=== PATIENT | female | born 1960 | race Caucasian/White ===

== ENCOUNTER 2017-01-13 17:28 | Inpatient (IN) | payer MEDICARE ==
[~2017-01-13] VITALS: Ht 154.9 cm; Wt 50.5 kg
[2017-01-13] MEDS ORDERED: LISI20TA3 PO (17:53)
[2017-01-13] MEDS ORDERED: THIAMINE HCL 200 MG/2 ML VIAL (J3411) IV ONE (18:15)
[2017-01-13] MEDS: NS 1,000 ML IV SCH (18:37)
[2017-01-13 18:40] LABS: BASO % 0.1 % (0.0-1.0); EOS % 0.3 % (0.0-3.0); LARGE UNSTAINED CELL # 0.1 K/mm3 (0.0-0.4); LARGE UNSTAINED CELL % 1.5 % (0.0-4.0); LYMPH # 1.8 K/mm3 (1.5-4.5); LYMPH % 25.6 % (24.0-44.0); MEAN CORPUSCULAR HEMOGLOBIN 32.6 pg (27.0-33.0); MEAN CORPUSCULAR VOLUME 101.9 fl (80.0-96.0); MONO # 0.2 K/mm3 (0.0-0.8); MONO % 3.3 % (0.0-5.0); NEUTROPHILS # 4.8 K/mm3 (1.8-7.7); NEUTROPHILS % 69.1 % (36.0-66.0); PLATELET COUNT, AUTOMATED 188 k/mm3 (150-450); RED CELL DISTRIBUTION WIDTH 20.4 % (11.5-14.5); WHITE BLOOD COUNT 6.9 K/mm3 (4.0-10.0)
[2017-01-13] MEDS ORDERED: NS 500 ML IV ONE (18:45)
--- NOTE | 2017-01-13 18:50 | REPUSA ---
CLINICAL HISTORY: Fall, weakness. TECHNIQUE: Multiple axial CT images were obtained through the brain without IV contrast material. COMMENTS: There is normal configuration of sella turcica. There are no intra or extra-axial collections. There is no mass effect or midline shift. There is no evidence of hematoma formation. No hydrocephalus is p resent. The ventricles are symmetrical. No abnormal calcifications are present. There is diffuse age-appropriate cerebellar and cerebral atrophy with proportionally dilated ventricl es and cortical sulci. There are bilateral periventricular and subcortical white matter hypolucencies compatible with mild c hronic microvascular disease. Otherwise, no significant focal abnormalities are seen either in the posterior fossa or supratentoria l compartment. IMPRESSION: 1. Age-appropriate cerebellar and cerebral atrophy. 2. Mild chronic microvascular disease. 3. No evidence of acute intracranial pathology. Thank you for your kind referral of this patient.
--- NOTE | 2017-01-13 18:50 | REPUSA ---
CLINICAL HISTORY: Neck pain. TECHNIQUE: Multiple axial images were obtained through the cervical spine. Images were also reconstru cted in coronal and sagittal planes. The study was performed without IV contrast. COMMENTS: There is no fracture. Grade 1 anterior spondylolisthesis of C3 on C4. The paraspinal soft tissues are unremarkable. There are no lytic or blastic lesions. Straightening of cervical lordosis is seen, suggesting muscular spasm. There is evidence of multileve l disk disease, demonstrated by osteophytosis and endplate sclerosis. IMPRESSION: 1. No fracture. Grade 1 anterior spondylolisthesis of C3 on C4. 2. Straightening of cervical lordosis is seen, suggesting muscular spasm. 3. Multilevel spondylosis. Thank you for your kind referral of this patient.
[2017-01-13 19:04] LABS: INR 1.01
[2017-01-13 19:06] LABS: BLOOD UREA NITROGEN 6 MG/DL (7-18); CALCIUM LEVEL 7.4 MG/DL (8.5-10.1); CREATININE FOR GFR 0.98 MG/DL (0.55-1.02); GLOMERULAR FILTRATION RATE > 60.0 (>51); GLUCOSE, FASTING 103 MG/DL (70-105)
[2017-01-13 19:13] LABS: ALBUMIN 2.3 GM/DL (3.2-5.2); ALBUMIN/GLOBULIN RATIO 0.74 (1.00-1.93); BILIRUBIN,DIRECT 0.8 MG/DL (0.0-0.2); BILIRUBIN,TOTAL 1.5 MG/DL (0.2-1.0); FREE T4 1.16 NG/DL (0.76-1.46); MAGNESIUM LEVEL 1.1 MG/DL (1.8-2.4); PHOSPHORUS LEVEL 0.7 MG/DL (2.5-4.9); TOTAL PROTEIN 5.4 GM/DL (6.4-8.2)
[2017-01-13 19:20] LABS: ANION GAP 12 MEQ/L (8-16)
[2017-01-13 19:25] LABS: CHLORIDE LEVEL 78 MEQ/L (98-107); SODIUM LEVEL 127 MEQ/L (136-145)
[2017-01-13 19:30] LABS: CARBON DIOXIDE LEVEL 37 MEQ/L (21-32); POTASSIUM SERUM 1.7 MEQ/L (3.5-5.1)
[2017-01-13] MEDS ORDERED: NEUTRA-PHOS 1.25 GM PACKET PO ONE (19:30)
[2017-01-13] MEDS ORDERED: MAG SULF 1GM/100ML (MAG RUN) 1 GM in APPROPRIATE DILUENT 1 EA IV ONE (19:30)
[2017-01-13] MEDS ORDERED: KCL 10MEQ IN 100ML SWI (KRUN) 10 MEQ in APPROPRIATE DILUENT 1 EA IV ONE ×2 (20:00)
[2017-01-13] MEDS ORDERED: POTASSIUM CHLORIDE 10 MEQ SR TABLET PO ONE (20:00)
[2017-01-13] MEDS ORDERED: FOLIC ACID 1 MG TAB PO ONE (20:00)
[2017-01-13 21:53] LABS: OSMOLALITY SERUM 257 MOSM/KG (275-295)
[2017-01-13] MEDS ORDERED: ACETAMINOPHEN TAB 650MG DOSE (2X325MG) PO PRN (23:45)
[2017-01-14] VITALS (7 sets, daily range): BP systolic 104–130; BP diastolic 56–80
[2017-01-14] MEDS: NS 1,000 ML IV SCH (02:55)
[2017-01-14 04:07] LABS: BASO % 0.3 % (0.0-1.0); EOS % 0.6 % (0.0-3.0); LARGE UNSTAINED CELL # 0.1 K/mm3 (0.0-0.4); LARGE UNSTAINED CELL % 1.4 % (0.0-4.0); LYMPH # 1.8 K/mm3 (1.5-4.5); LYMPH % 30.3 % (24.0-44.0); MEAN CORPUSCULAR HEMOGLOBIN 31.7 pg (27.0-33.0); MEAN CORPUSCULAR HGB CONC 34.4 g/dl (32.0-36.5); MONO # 0.2 K/mm3 (0.0-0.8); MONO % 4.2 % (0.0-5.0); NEUTROPHILS # 3.7 K/mm3 (1.8-7.7); NEUTROPHILS % 63.3 % (36.0-66.0); PLATELET COUNT, AUTOMATED 136 k/mm3 (150-450); RED CELL DISTRIBUTION WIDTH 20.3 % (11.5-14.5); WHITE BLOOD COUNT 5.8 K/mm3 (4.0-10.0)
[2017-01-14 04:10] LABS: ANION GAP 4 MEQ/L (8-16); BLOOD UREA NITROGEN 7 MG/DL (7-18); CALCIUM LEVEL 7.2 MG/DL (8.5-10.1); CARBON DIOXIDE LEVEL 41 MEQ/L (21-32); CHLORIDE LEVEL 85 MEQ/L (98-107); CREATININE FOR GFR 0.65 MG/DL (0.55-1.02); GLOMERULAR FILTRATION RATE > 60.0 (>51); GLUCOSE, FASTING 98 MG/DL (70-105); MAGNESIUM LEVEL 1.8 MG/DL (1.8-2.4); PHOSPHORUS LEVEL 0.8 MG/DL (2.5-4.9); POTASSIUM SERUM 1.8 MEQ/L (3.5-5.1); SODIUM LEVEL 130 MEQ/L (136-145)
[2017-01-14 04:21] LABS: MEAN CORPUSCULAR VOLUME 92.1 fl (80.0-96.0)
[2017-01-14 04:52] LABS: ALBUMIN 2.1 GM/DL (3.2-5.2); ALBUMIN/GLOBULIN RATIO 0.68 (1.00-1.93); ALKALINE PHOSPHATASE 158 U/L (45-117); ALT/SGPT 25 U/L (12-78); AST/SGOT 90 U/L (15-37); BILIRUBIN,TOTAL 1.1 MG/DL (0.2-1.0); TOTAL PROTEIN 5.2 GM/DL (6.4-8.2)
[2017-01-14] MEDS ORDERED: KCL 20MEQ in NS 1000ML 1,000 ML IV SCH (05:15)
[2017-01-14] MEDS ORDERED: POTASSIUM CHLORIDE 10% LIQ 20 MEQ/15 ML UDC PO ONE ×2 (06:00→09:00)
[2017-01-14] MEDS ORDERED: KCL 10MEQ IN 100ML SWI (KRUN) 10 MEQ in APPROPRIATE DILUENT 1 EA IV ONE ×4 (06:00→09:00)
[2017-01-14 07:41] LABS: ANION GAP 5 MEQ/L (8-16); BLOOD UREA NITROGEN 7 MG/DL (7-18); CALCIUM LEVEL 7.2 MG/DL (8.5-10.1); CARBON DIOXIDE LEVEL 38 MEQ/L (21-32); CHLORIDE LEVEL 86 MEQ/L (98-107); CREATININE FOR GFR 0.79 MG/DL (0.55-1.02); GLOMERULAR FILTRATION RATE > 60.0 (>51); GLUCOSE, FASTING 92 MG/DL (70-105); SODIUM LEVEL 129 MEQ/L (136-145)
[2017-01-14 07:47] LABS: POTASSIUM SERUM 2.7 MEQ/L (3.5-5.1)
[2017-01-14] MEDS: KCL 20MEQ in NS 1000ML 1,000 ML IV SCH (07:52)
--- NOTE | 2017-01-14 08:07 | IPNPDOC ---
Subjective Date Seen The patient was seen on 01/14/17. Subjective Chief Complaint/HPI The patient is a 56-year-old female admitted with a reason for visit of Hypokalemia. General: Reports: Fatigue, Malaise, Denies: ROS Unobtainable, Chills, Night Sweats, Normal Appetite, Other Symptoms Constitutional: Reports: Malaise, Weakness, Denies: Chills, Fever, Night Sweats, Fatigue, Weight Loss, Lethargy, Other Eyes: Denies: Pain, Vision change, Conjunctivae inflammation, Eyelid inflammation, Redness, Other ENT: Denies: Head Aches, Ear Pain, Dysphagia, Sinus Congestion, Post Nasal Drip , Sore Throat, Epistaxis, Other Symptoms Skin: Denies: Rash, Lesions, Jaundice, Bruising, Itching, Dry, Breakdown, Nail Changes, Other Pulmonary: Denies: Dyspnea, Cough, Pleuritic Chest Pain, Other Symptoms Cardiovascular: Denies: Chest Pain, Palpitations, Orthopnea, Paroxysmal Noc. Dyspnea, Edema, Lt Headedness, Other Symptoms Gastrointestinal: Denies: Nausea, Vomiting, Abdominal Pain, Diarrhea, Constipation, Melena, Hematochezia, Other Symptoms Neurological: Reports: Weakness, Other Symptoms (dizziness) Objective Physical Examination General Exam: Positive: Alert, Cooperative, No Acute Distress, Other (frail) Eye Exam: Positive: PERRLA, Conjunctiva & lids normal, EOMI, Negative: Sclera icteric ENT Exam: Positive: Atraumatic Chest Exam: Positive: Clear to auscultation, Normal air movement Heart Exam: Positive: Rate Normal Telemetry: Positive: No significant arrhythmia Abdomen Exam: Positive: Normal bowel sounds, Soft, Negative: Tenderness Extremity Exam: Negative: Edema Psych Exam: Positive: Oriented x 3 Assessment /Plan Problems (1) HTN (hypertension) Status: Chronic Discussed With: Patient Problem Specific Plan: Monitor Clinically Problem Text: lisinopril as per home medications (2) Hypokalemia Status: Acute Response to Treatment: Progressing Discussed With: Patient Problem Specific Plan: Consult Specialist, Repeat Labs (3) Hypomagnesemia Status: Acute Discussed With: Patient Problem Specific Plan: Consult Specialist, Repeat Labs (4) Anemia Status: Acute Discussed With: Patient Problem Specific Plan: Monitor Clinically, Repeat Labs Problem Text: anemia workup pending - b12, folate, ldh, retic count, stool guaic (5) Nicotine abuse Status: Chronic Discussed With: Patient Problem Text: counselling provided at bedside. continue with NRT. (6) Alcohol abuse Status: Chronic Discussed With: Patient Problem Specific Plan: Monitor Clinically Problem Text: She states her last drink was 5 days ago, and has 3 drinks per day. Plan/VTE VTE Prophylaxis Ordered?: Yes (mechanical) Plan IVF: Continue Diet: Continue Current Therapy: PT, OT Medications: Replete Electrolytes IV, Replete Electrolytes PO Diagnostics: Repeat Labs in AM Anticipated Discharge: Home States has been not left her home for the last 4 months for fear of falling secondary to her weakness and dizziness. Anemia workup pending, replete electrolytes. Nephrology consultation. VS, I&O, 24H, Fishbone Vital Signs/I&O Vital Signs Date Time Temp Pulse Resp B/P (MAP) Pulse Ox O2 Delivery O2 Flow Rate FiO2 01/14/17 04:00 98.3 74 18 108/80 (89) 97 Room Air I&O- Last 24 Hours up to 6 AM 01/14/17 06:00 Intake Total 820 ml Output Total 200 ml Balance 620 ml Laboratory Data 24H LABS Laboratory Tests 2 01/13/17 18:16: White Blood Count 6.9, Red Blood Count 2.13L, Hemoglobin 7.0L, Hematocrit 21.7L , Mean Corpuscular Volume 101.9H, Mean Corpuscular Hemoglobin 32.6, Mean Corpuscular Hemoglobin Concent 32.0, Red Cell Distribution Width 20.4H, Platelet Count 188, Neutrophils (%) (Auto) 69.1H, Lymphocytes (%) (Auto) 25.6, Monocytes (%) (Auto) 3.3, Eosinophils (%) (Auto) 0.3, Basophils (%) (Auto) 0.1, Neutrophils # (Auto) 4.8, Lymphocytes # (Auto) 1.8, Monocytes # (Auto) 0.2, Eosinophils # (Auto) 0.0, Basophils # (Auto) 0.0, Large Unclassified Cells % 1.5 , Large Unclassified Cells # 0.1, Prothrombin Time 13.4, Prothromb Time International Ratio 1.01, Activated Partial Thromboplast Time 23.4L, Anion Gap 12, Glomerular Filtration Rate > 60.0, Blood Urea Nitrogen 6L, Creatinine 0.98, Sodium Level 127L, Potassium Level 1.7*L, Chloride Level 78L, Carbon Dioxide Level 37H, Calcium Level 7.4L, Total Creatine Kinase 177, Phosphorus Level 0.7L , Magnesium Level 1.1L, Aspartate Amino Transf (AST/SGOT) 100H, Alanine Aminotransferase (ALT/SGPT) 26, Alkaline Phosphatase 166H, Total Bilirubin 1.5H , Direct Bilirubin 0.8H, Ammonia 46H, Creatine Kinase MB 1.0, Creatine Kinase MB Relative Index 0.56, Troponin I < 0.02, Total Protein 5.4L, Albumin 2.3L, Albumin/Globulin Ratio 0.74L, Thyroid Stimulating Hormone (TSH) 1.320, Free Thyroxine 1.16, Ethyl Alcohol Level 0.004 01/13/17 21:22: Osmolality 257L 01/14/17 03:17: White Blood Count 5.8, Red Blood Count 3.13L, Hemoglobin 9.9#L, Hematocrit 28.8L , Mean Corpuscular Volume 92.1#, Mean Corpuscular Hemoglobin 31.7, Mean Corpuscular Hemoglobin Concent 34.4, Red Cell Distribution Width 20.3H, Platelet Count 136L, Neutrophils (%) (Auto) 63.3, Lymphocytes (%) (Auto) 30.3, Monocytes (%) (Auto) 4.2, Eosinophils (%) (Auto) 0.6, Basophils (%) (Auto) 0.3, Neutrophils # (Auto) 3.7, Lymphocytes # (Auto) 1.8, Monocytes # (Auto) 0.2, Eosinophils # (Auto) 0.0, Basophils # (Auto) 0.0, Large Unclassified Cells % 1.4 , Large Unclassified Cells # 0.1, Anion Gap 4L, Glomerular Filtration Rate > 60.0, Blood Urea Nitrogen 7, Creatinine 0.65, Sodium Level 130L, Potassium Level 1.8*L, Chloride Level 85L, Carbon Dioxide Level 41H, Calcium Level 7.2L, Total Creatine Kinase 171, Phosphorus Level 0.8L, Magnesium Level 1.8, Aspartate Amino Transf (AST/SGOT) 90H, Alanine Aminotransferase (ALT/SGPT) 25, Alkaline Phosphatase 158H, Total Bilirubin 1.1H, Creatine Kinase MB 1.2, Creatine Kinase MB Relative Index 0.70, Troponin I 0.02, Total Protein 5.2L, Albumin 2.1L, Albumin/Globulin Ratio 0.68L, Thyroid Stimulating Hormone (TSH) 1.450, Thyroxine (T4) 6.8 01/14/17 07:12: Anion Gap 5L, Glomerular Filtration Rate > 60.0, Blood Urea Nitrogen 7, Creatinine 0.79, Sodium Level 129L, Potassium Level 2.7#*L, Chloride Level 86L, Carbon Dioxide Level 38H, Calcium Level 7.2L CBC/BMP Laboratory Tests 01/13/17 18:16 Red Blood Count 2.13 L, Mean Corpuscular Volume 101.9 H, Mean Corpuscular Hemoglobin 32.6, Mean Corpuscular Hemoglobin Concent 32.0, Red Cell Distribution Width 20.4 H, Neutrophils (%) (Auto) 69.1 H, Lymphocytes (%) (Auto ) 25.6, Monocytes (%) (Auto) 3.3, Eosinophils (%) (Auto) 0.3, Basophils (%) ( Auto) 0.1, Neutrophils # (Auto) 4.8, Lymphocytes # (Auto) 1.8, Monocytes # (Auto ) 0.2, Eosinophils # (Auto) 0.0, Basophils # (Auto) 0.0, Calcium Level 7.4 L, Total Creatine Kinase 177 01/14/17 03:17 Red Blood Count 3.13 L, Mean Corpuscular Volume 92.1 #, Mean Corpuscular Hemoglobin 31.7, Mean Corpuscular Hemoglobin Concent 34.4, Red Cell Distribution Width 20.3 H, Neutrophils (%) (Auto) 63.3, Lymphocytes (%) (Auto) 30.3, Monocytes (%) (Auto) 4.2, Eosinophils (%) (Auto) 0.6, Basophils (%) (Auto ) 0.3, Neutrophils # (Auto) 3.7, Lymphocytes # (Auto) 1.8, Monocytes # (Auto) 0.2, Eosinophils # (Auto) 0.0, Basophils # (Auto) 0.0, Calcium Level 7.2 L, Total Creatine Kinase 171, Phosphorus Level 0.8 L, Aspartate Amino Transf (AST/ SGOT) 90 H, Alanine Aminotransferase (ALT/SGPT) 25, Alkaline Phosphatase 158 H, Total Bilirubin 1.1 H, Total Protein 5.2 L, Albumin 2.1 L 01/14/17 07:12 Calcium Level 7.2 L ANUJ ARREOLA MD Jan 14, 2017 08:07
[2017-01-14] MEDS: PANTOPRAZOLE 40MG TAB (PROTONIX) PO SCH (08:35)
[2017-01-14] MEDS: THIAMINE 100 MG TAB PO SCH (08:35)
[2017-01-14] MEDS: NICOTINE 21MG/24HR 1 EA TRANSDERMAL TD SCH (08:35)
[2017-01-14] MEDS: FOLIC ACID 1 MG TAB PO SCH (08:35)
[2017-01-14 08:41] LABS: RETIC HEMOGLOBIN CONTENT CHr 31.5 PG (24-36); RETICULOCYTE ABSOLUTE ADVIA212 20 x10(9)/L (17-77)
--- NOTE | 2017-01-14 09:36 | REP ---
Chest x-ray: Two views. History: Weakness. History of a fall. Comparison study: November 13, 2005. Findings: The lungs are well inflated and free of infiltrate. Heart is not enlarged. Pulmonary vasculature is not increased. There are degenerative changes in the thoracic spine. Pulmonary vasculature is not increased. Impression: No active disease. Signed by Moose Lowry MD 01/14/2017 11:31 A
[2017-01-14 09:42] LABS: FERRITIN 755 NG/ML (8-252)
[2017-01-14 10:01] LABS: PHOSPHORUS LEVEL 0.7 MG/DL (2.5-4.9)
[2017-01-14 16:05] LABS: THYROXINE (T4) 6.8 UG/DL (4.5-12.0)
[2017-01-14 16:28] LABS: ANION GAP 3 MEQ/L (8-16); BLOOD UREA NITROGEN 7 MG/DL (7-18); CALCIUM LEVEL 7.2 MG/DL (8.5-10.1); CARBON DIOXIDE LEVEL 37 MEQ/L (21-32); CHLORIDE LEVEL 90 MEQ/L (98-107); CREATININE FOR GFR 0.69 MG/DL (0.55-1.02); GLOMERULAR FILTRATION RATE > 60.0 (>51); GLUCOSE, FASTING 83 MG/DL (70-105); MAGNESIUM LEVEL 1.7 MG/DL (1.8-2.4); PERCENT SATURATION 98.4 % (13.2-37.4); PHOSPHORUS LEVEL 0.5 MG/DL (2.5-4.9); SODIUM LEVEL 130 MEQ/L (136-145)
[2017-01-14 16:30] LABS: POTASSIUM SERUM 2.9 MEQ/L (3.5-5.1)
[2017-01-14 16:39] LABS: T UPTAKE 38 % (30-39)
[2017-01-14] MEDS ORDERED: MAG SULF 1GM/100ML (MAG RUN) 1 GM in APPROPRIATE DILUENT 1 EA IV ONE (17:00)
[2017-01-14] MEDS ORDERED: POTASSIUM CHLORIDE 10 MEQ SR TABLET PO ONE (17:00)
[2017-01-14 22:57] LABS: ANION GAP 6 MEQ/L (8-16); BLOOD UREA NITROGEN 8 MG/DL (7-18); CALCIUM LEVEL 7.3 MG/DL (8.5-10.1); CARBON DIOXIDE LEVEL 34 MEQ/L (21-32); CHLORIDE LEVEL 92 MEQ/L (98-107); CREATININE FOR GFR 0.86 MG/DL (0.55-1.02); GLOMERULAR FILTRATION RATE > 60.0 (>51); GLUCOSE, FASTING 96 MG/DL (70-105); MAGNESIUM LEVEL 1.9 MG/DL (1.8-2.4); PHOSPHORUS LEVEL 0.3 MG/DL (2.5-4.9); SODIUM LEVEL 132 MEQ/L (136-145)
[2017-01-14 23:00] LABS: POTASSIUM SERUM 2.7 MEQ/L (3.5-5.1)
[2017-01-15] MEDS ORDERED: POTASSIUM CHLORIDE 10% LIQ 20 MEQ/15 ML UDC PO ONE (01:00)
[2017-01-15] MEDS: KCL 20MEQ in NS 1000ML 1,000 ML IV SCH (01:18)
[2017-01-15 04:09] VITALS: BP 135/70
--- NOTE | 2017-01-15 05:08 | HPE ---
DATE OF ADMISSION: 01/13/2017 CHIEF COMPLAINT: General weakness. HISTORY OF PRESENT ILLNESS: This is a 56-year-old female who came to the emergency room with complaint of feeling weak all over. She had no complaints of pain. Stated that she had no energy, had no appetite. Continued to feel worse. Came to the emergency room. Upon arrival, her blood pressure was 127/62, pulse was 101, respirations 18, temperature was 99.7, oxygen saturation was 98% on room air. Laboratory studies were done. WBC was 6.9, hemoglobin was 7, hematocrit was 21.7, MCV was 101.9, platelets were 188. Sodium was 127, her potassium was 1.7, chloride 78, CO2 37, BUN was 6, creatinine was 0.91. Phosphorus was low at 0.7. Magnesium was 1.1. Troponin was less than 0.02. EKG was sinus rhythm. She had a CT of the head that showed age-appropriate cerebellar and cerebral atrophy, mild chronic microvascular disease, no evidence of acute intracranial pathology. Chest x-ray showed no active disease. C-spine showed no fracture, grade 1 anterior spondylolisthesis of C3 and C4, straightening of cervical lordosis suggesting muscular spasm and multilevel spondylosis. She was given magnesium sulfate intravenously (IV), potassium replacement and sodium chloride IV was started. She was given two units of packed cells. Assessment was done and patient will be admitted to the progressive care unit (PCU) for anemia and hypokalemia. PRIMARY CARE PROVIDER: Dr. Adan. SOCIAL HISTORY: She lives with a significant other. She drinks alcohol nightly, at least 4-5 drinks a night. She smokes one pack of cigarettes per day. Recreational drug use none. PAST MEDICAL HISTORY: 1. Arthritis. 2. History of alcohol abuse. PAST SURGICAL HISTORY: Total right hip replacement. FAMILY HISTORY: Noncontributory. HOME MEDICATIONS: None. REVIEW OF SYSTEMS: Other than generalized weakness, were negative. She denied any hematochezia, melena, rectal bleeding or hematemesis. PHYSICAL EXAMINATION: 56-year-old cooperative female. Blood pressure 127/62, pulse 100, respirations 18, temperature 99.7. The patient is alert and oriented times three. Pupils equal and reactive to light. Extraocular muscles (EOMs) are intact. Cornea and sclerae clear. Conjunctivae were normal. No facial asymmetry. Pharynx, tongue and gums pink and moist. Tongue is midline. Neck is supple without lymphadenopathy. No thyromegaly. No goiter. Chest clear to auscultation without wheeze or retraction. Heart is regular. Abdomen is soft, nontender. No masses, pulsations or bruits. No organomegaly. Bowel sounds are positive. /rectal: Not done. Extremities show equal strength, full range of motion. No cyanosis, clubbing or edema. IMPRESSION AND PLAN: The patient will be admitted inpatient status for anemia, hypokalemia. PLAN: 1. Hypokalemia. Continue potassium replacement. Monitor basic metabolic panel (BMP). 2. Hypomagnesemia. Continue replacement. Monitor BMP. 3. Acute anemia. Blood transfusions as ordered. Continue to followup labs. 4. Nicotine abuse. Counseling provided. 5. Alcohol abuse. Will give thiamine and folic acid. Continue gentle hydration for the low sodium.
[2017-01-15 05:51] LABS: BASO % 0.3 % (0.0-1.0); EOS # 0.1 K/mm3 (0.0-0.50); LARGE UNSTAINED CELL # 0.1 K/mm3 (0.0-0.4); LARGE UNSTAINED CELL % 2.1 % (0.0-4.0); LYMPH # 2.7 K/mm3 (1.5-4.5); LYMPH % 38.4 % (24.0-44.0); MEAN CORPUSCULAR HEMOGLOBIN 31.5 pg (27.0-33.0); MEAN CORPUSCULAR HGB CONC 33.5 g/dl (32.0-36.5); MONO # 0.3 K/mm3 (0.0-0.8); MONO % 4.3 % (0.0-5.0); NEUTROPHILS # 3.6 K/mm3 (1.8-7.7); PLATELET COUNT, AUTOMATED 144 k/mm3 (150-450); RED CELL DISTRIBUTION WIDTH 20.3 % (11.5-14.5); WHITE BLOOD COUNT 6.7 K/mm3 (4.0-10.0)
[2017-01-15 05:58] LABS: ANION GAP 5 MEQ/L (8-16); BLOOD UREA NITROGEN 7 MG/DL (7-18); CALCIUM LEVEL 7.7 MG/DL (8.5-10.1); CARBON DIOXIDE LEVEL 34 MEQ/L (21-32); CHLORIDE LEVEL 97 MEQ/L (98-107); CREATININE FOR GFR 0.59 MG/DL (0.55-1.02); GLOMERULAR FILTRATION RATE > 60.0 (>51); GLUCOSE, FASTING 82 MG/DL (70-105); MAGNESIUM LEVEL 1.7 MG/DL (1.8-2.4); POTASSIUM SERUM 3.3 MEQ/L (3.5-5.1); SODIUM LEVEL 136 MEQ/L (136-145)
[2017-01-15 08:00] VITALS: BP 123/88; PULSE 91
[2017-01-15] MEDS: NICOTINE 21MG/24HR 1 EA TRANSDERMAL TD SCH (08:36)
[2017-01-15] MEDS: THIAMINE 100 MG TAB PO SCH (08:37)
[2017-01-15] MEDS: FOLIC ACID 1 MG TAB PO SCH (08:37)
[2017-01-15] MEDS: PANTOPRAZOLE 40MG TAB (PROTONIX) PO SCH (08:37)
[2017-01-15] MEDS ORDERED: MAG SULF 1GM/100ML (MAG RUN) 1 GM in APPROPRIATE DILUENT 1 EA IV ONE (09:00)
[2017-01-15 09:33] LABS: VITAMIN B12 LEVEL 304 PG/ML
[2017-01-15 09:34] LABS: FOLATE > 24.0 NG/ML
[2017-01-15] MEDS: K-PHOS ORIGINAL (POT.ACID PHOSPHATE) 500MG TAB PO SCH ×3 (10:39→18:52)
--- NOTE | 2017-01-15 11:27 | IPN ---
DATE: 01/15/2017 Ms. Munoz is seen this morning on her bedside. She denies any nausea, vomiting, dyspnea or chest pain. She seems to be slightly confused and disoriented. On physical exam, temperature 99.2 degrees Fahrenheit, heart rate 100 and respiratory rate 19 per minute. Blood pressure 123/88 mmHg and oxygen saturation 97% on room air. Head is atraumatic. Ears, nose and throat are unremarkable. Neck is supple and without JVD or thyroid enlargement. Heart sounds are regular and lungs clear to auscultation. Abdomen is soft and nontender. Bowel sounds are normal. Extremities have no cyanosis or clubbing. Skin has no rash or ulcers. Neurologically she is awake, seems to be slightly off, as she reports that she did not sleep all night. Today's labs show a WBC count 6.7, hemoglobin 9.6 and hematocrit 28.7. Sodium 136 and potassium 3.3. BUN 7and creatinine 0.59. Calcium 7.7 and phosphorus was 0.3 last evening, but not repeated this morning. PROBLEMS: 1. Severe hypokalemia. Potassium level has improved and she continues to receive supplement. Most likely this is nutritional and probably related to chronic alcoholism. 2. Hyponatremia. Sodium level has corrected. She is not on any fluid restriction at this point. She is receiving IV normal saline. 3. Hypophosphatemia. This is again severe and related to chronic malnutrition and possible alcoholism. We will add potassium phosphate 20 mEq in the IV fluid instead of potassium chloride and continued at 80 mL per hour. She is also going to receive oral potassium phosphate. She is currently on normal diet.
[2017-01-15 12:00] VITALS: BP 124/60; PULSE 114
--- NOTE | 2017-01-15 12:40 | IPNPDOC ---
Subjective Date Seen The patient was seen on 01/15/17. Subjective Chief Complaint/HPI The patient is a 56-year-old female admitted with a reason for visit of Hypokalemia. General: Denies: ROS Unobtainable, Chills, Night Sweats, Fatigue, Malaise, Normal Appetite, Other Symptoms Constitutional: Reports: Lethargy, Denies: Chills, Fever, Malaise, Night Sweats, Weakness, Fatigue, Weight Loss , Other Eyes: Denies: Pain, Vision change, Conjunctivae inflammation, Eyelid inflammation, Redness, Other ENT: Denies: Head Aches, Ear Pain, Dysphagia, Sinus Congestion, Post Nasal Drip , Sore Throat, Epistaxis, Other Symptoms Skin: Denies: Rash, Lesions, Jaundice, Bruising, Itching, Dry, Breakdown, Nail Changes, Other Pulmonary: Denies: Dyspnea, Cough, Pleuritic Chest Pain, Other Symptoms Cardiovascular: Denies: Chest Pain, Palpitations, Orthopnea, Paroxysmal Noc. Dyspnea, Edema, Lt Headedness, Other Symptoms Gastrointestinal: Denies: Nausea, Vomiting, Abdominal Pain, Diarrhea, Constipation, Melena, Hematochezia, Other Symptoms Objective Physical Examination General Exam: Positive: Alert, Cooperative, No Acute Distress, Other (frail) Eye Exam: Positive: PERRLA, Conjunctiva & lids normal, EOMI, Negative: Sclera icteric ENT Exam: Positive: Atraumatic Chest Exam: Positive: Clear to auscultation, Normal air movement Heart Exam: Positive: Rate Normal Telemetry: Positive: No significant arrhythmia Abdomen Exam: Positive: Normal bowel sounds, Soft, Negative: Tenderness Extremity Exam: Negative: Edema Psych Exam: Positive: Oriented x 3 Assessment /Plan Problems (1) HTN (hypertension) Status: Chronic Discussed With: Patient Problem Specific Plan: Monitor Clinically Problem Text: lisinopril as per home medications (2) Hypokalemia Status: Acute Response to Treatment: Improving, Progressing Discussed With: [employer], Patient Problem Specific Plan: Consult Specialist, Repeat Labs Problem Text: likely secondary to alcoholism - significantly improved - continue with oral supplementation (3) Hypomagnesemia Status: Acute Response to Treatment: Improving Discussed With: [employer], Patient Problem Specific Plan: Consult Specialist, Repeat Labs (4) Hypophosphatemia Status: Acute Response to Treatment: Improving Discussed With: [employer] Problem Specific Plan: Consult Specialist Problem Text: PO and IV repletion. Continue to follow. (5) Anemia Status: Acute Discussed With: Patient Problem Specific Plan: Monitor Clinically, Repeat Labs Problem Text: anemia workup pending - b12, folate, ldh, retic count, stool guaic (6) Nicotine abuse Status: Chronic Discussed With: Patient Problem Text: counselling provided at bedside. continue with NRT. (7) Alcohol abuse Status: Chronic Discussed With: Patient Problem Specific Plan: Monitor Clinically Problem Text: She states her last drink was 5 days ago, and has 3 drinks per day. Sister called today advising patient is alcoholic. Serax implemented for withdrawal symptoms. Plan/VTE VTE Prophylaxis Ordered?: Yes (mechanical) Plan IVF: Continue Diet: Continue Current Therapy: PT, OT Medications: Replete Electrolytes IV, Replete Electrolytes PO Diagnostics: Repeat Labs in AM Anticipated Discharge: Home Replete electrolytes. Monitor signs/symptoms alcohol withdrawal. VS, I&O, 24H, Fishbone Vital Signs/I&O Vital Signs Date Time Temp Pulse Resp B/P (MAP) Pulse Ox O2 Delivery O2 Flow Rate FiO2 01/15/17 12:00 97.0 98 19 124/60 (81) 94 Room Air I&O- Last 24 Hours up to 6 AM 01/15/17 06:00 Intake Total 2840 ml Output Total 850 ml Balance 1990 ml Laboratory Data 24H LABS Laboratory Tests 2 01/14/17 15:37: Anion Gap 3L, Glomerular Filtration Rate > 60.0, Blood Urea Nitrogen 7, Creatinine 0.69, Sodium Level 130L, Potassium Level 2.9*L, Chloride Level 90L, Carbon Dioxide Level 37H, Calcium Level 7.2L, Phosphorus Level 0.5#L, Magnesium Level 1.7L, Iron Level 182H, Total Iron Binding Capacity 185L, Transferrin % Saturation 98.4H, Total Creatine Kinase 129, Creatine Kinase MB 1.0, Creatine Kinase MB Relative Index 0.77, Troponin I < 0.02 01/14/17 21:55: Anion Gap 6L, Glomerular Filtration Rate > 60.0, Blood Urea Nitrogen 8, Creatinine 0.86, Sodium Level 132L, Potassium Level 2.7*L, Chloride Level 92L, Carbon Dioxide Level 34H, Calcium Level 7.3L, Phosphorus Level 0.3#L, Magnesium Level 1.9 01/15/17 04:26: Anion Gap 5L, Glomerular Filtration Rate > 60.0, Blood Urea Nitrogen 7, Creatinine 0.59, Sodium Level 136, Potassium Level 3.3#L, Chloride Level 97L, Carbon Dioxide Level 34H, Calcium Level 7.7L, Magnesium Level 1.7L, White Blood Count 6.7, Red Blood Count 3.06L, Hemoglobin 9.6L, Hematocrit 28.7L, Mean Corpuscular Volume 94.0, Mean Corpuscular Hemoglobin 31.5, Mean Corpuscular Hemoglobin Concent 33.5, Red Cell Distribution Width 20.3H, Platelet Count 144L , Neutrophils (%) (Auto) 54.0, Lymphocytes (%) (Auto) 38.4, Monocytes (%) (Auto ) 4.3, Eosinophils (%) (Auto) 1.0, Basophils (%) (Auto) 0.3, Neutrophils # (Auto ) 3.6, Lymphocytes # (Auto) 2.7, Monocytes # (Auto) 0.3, Eosinophils # (Auto) 0.1, Basophils # (Auto) 0.0, Large Unclassified Cells % 2.1, Large Unclassified Cells # 0.1 CBC/BMP Laboratory Tests 01/14/17 15:37 Calcium Level 7.2 L 01/14/17 21:55 Calcium Level 7.3 L 01/15/17 04:26 Calcium Level 7.7 L, Red Blood Count 3.06 L, Mean Corpuscular Volume 94.0, Mean Corpuscular Hemoglobin 31.5, Mean Corpuscular Hemoglobin Concent 33.5, Red Cell Distribution Width 20.3 H, Neutrophils (%) (Auto) 54.0, Lymphocytes (%) (Auto) 38.4, Monocytes (%) (Auto) 4.3, Eosinophils (%) (Auto) 1.0, Basophils (%) (Auto ) 0.3, Neutrophils # (Auto) 3.6, Lymphocytes # (Auto) 2.7, Monocytes # (Auto) 0.3, Eosinophils # (Auto) 0.1, Basophils # (Auto) 0.0 ANUJ ARREOLA MD Jan 15, 2017 12:40
[2017-01-15] MEDS: NS IV SCH (12:42)
[2017-01-15] MEDS: POTASSIUM PHOSPHATE IV SCH (12:42)
[2017-01-15] MEDS: OXAZEPAM 10 MG CAP PO SCH ×2 (12:45→22:16)
[2017-01-15 16:00] VITALS: BP 138/70; PULSE 97
[2017-01-15] MEDS: LORazepam 2 MG/ML VIAL (J2060) IV PRN (18:52)
[2017-01-15 20:00] VITALS: BP 135/82
--- NOTE | 2017-01-15 21:58 | CR ---
DATE OF CONSULTATION: 01/14/2017 NEPHROLOGY CONSULTATION FOR: Huy Kellogg MD REASON FOR CONSULTATION: Severe Hypokalemia and hyponatremia. HISTORY OF PRESENT ILLNESS: Ms. Munoz is a 56-year-old female who looks older than her stated age and was admitted last evening with history of vomiting and diarrhea for about 1 week. She was very weak on admission and had difficulty ambulating. She was found to have a potassium level of 1.7. A nephrology consultation was requested and the patient is seen this morning. PAST MEDICAL HISTORY: Significant for osteoarthritis, status post a right hip replacement in 2005. Apparently she was not taking any medications and there is no other significant medical history known. ALLERGIES: The patient has no known drug allergies. PERSONAL AND SOCIAL HISTORY: The patient denies any alcohol or recreational drug use. There is no history of smoking. FAMILY HISTORY: Unremarkable. REVIEW OF SYSTEMS: The patient denies any fever or chills. Head and neck is unremarkable. She denies any ear, nose or throat problems. Cardiovascular system negative for dyspnea or chest pain. Respiratory system negative for cough or hemoptysis. Gastrointestinal (GI) system is significant for recurrent vomiting and diarrhea for the last about 1 week. She denies any abdominal pain at present. She did have another loose stool today. There is no history of rectal bleeding or black colored stools. Genitourinary () system negative for dysuria or hematuria. Musculoskeletal system is significant for osteoarthritis. Endocrine system negative for diabetes or thyroid problems. Hematological system negative for easy bruising or excessive bleeding. Psychosocial system negative for depression or anxiety. Neurological system negative for seizures or stroke. Skin is negative for rash or ulcers. PHYSICAL EXAMINATION: This is a middle-aged female who looks older than her stated age. She is lying in the bed without any acute distress. Temperature 98.6 degrees Fahrenheit, heart rate 80 per minute and respiratory rate 18 per minute. Blood pressure 118/63 mmHg and oxygen saturation 95% on room air. Head is atraumatic. Ears, nose and throat are unremarkable. Neck is supple and without jugular venous distention (JVD) or thyroid enlargement. Heart sounds are regular and lungs clear to auscultation bilaterally. Abdomen soft with mild diffuse tenderness. Bowel sounds are normal. Extremities without any cyanosis or clubbing. Skin without any rash or ulcers. Neurologically she is awake, alert and oriented times three. LABORATORY DATA: On admission WBC count was 6.9, hemoglobin 7.0 and hematocrit 21.7. Her initial chemistry showed a sodium level 127, potassium 1.7, BUN 6 and creatinine 0.98. Calcium level was 7.4. Total bilirubin 1.5, AST 100, ALT 26 and alkaline phosphatase 166. Ammonia level was 46. This morning sodium is 130 and potassium 1.8. BUN 7 and creatinine 0.65. Chest x-ray done on admission was negative for any acute consolidation or effusion. PROBLEMS: 1. Severe hypokalemia, most likely this is related to diarrhea, vomiting and poor oral intake. I suspect that she has no regular oral intake for a long time. Very low BUN despite dehydration is suggestive of possibility of chronic alcohol use. 2. Hyponatremia, again related to gastrointestinal (GI) problems and poor oral intake. The patient is being treated with IV fluids and her sodium level is likely to improve. I suggest to continue with potassium chloride supplement with IV normal saline. Her electrolytes are being monitored every few hours already. 3. Severe symptomatic anemia. She seems to have chronic problems. Iron studies have turned back normal. I suggest to get a liver ultrasound to rule out any possibility of cirrhosis and continue to monitor her complete blood count (CBC) as she has already been transfused 2 units of packed red blood cells (RBCs). At this point there is no active bleeding. I thank you for involving me in the care of Ms. Munoz. FELIPE
[2017-01-15 23:59] VITALS: BP 147/80
[2017-01-16] MEDS: K-PHOS ORIGINAL (POT.ACID PHOSPHATE) 500MG TAB PO SCH ×2 (00:43→06:09)
[2017-01-16] MEDS: POTASSIUM PHOSPHATE IV SCH (00:43)
[2017-01-16] MEDS: NS IV SCH (00:43)
[2017-01-16] MEDS: LORazepam 2 MG/ML VIAL (J2060) IV PRN ×3 (00:59→14:49)
[2017-01-16 05:45] VITALS: BP 118/69
[2017-01-16] MEDS: OXAZEPAM 10 MG CAP PO SCH ×3 (06:09→22:00)
[2017-01-16 06:28] LABS: ABG BASE EXCESS 0.8 (-2.0-2.0); ABG HCO3 23.8 MEQ/L (22.0-26.0); ABG PARTIAL PRESSURE CO2 32.2 mmHg (35.0-45.0); ABG PARTIAL PRESSURE O2 52.6 mmHg (75.0-100.0); ABG STANDARD HCO3 24.9 MEQ/L (22.0-26.0); ABG TOTAL CO2 24.8 MEQ/L (22.0-29.0); ABG pH (ARTERIAL) 7.486 UNITS (7.350-7.450)
[2017-01-16 06:34] LABS: BASO % 0.4 % (0.0-1.0); EOS % 0.7 % (0.0-3.0); LARGE UNSTAINED CELL # 0.1 K/mm3 (0.0-0.4); LARGE UNSTAINED CELL % 1.7 % (0.0-4.0); LYMPH # 2.1 K/mm3 (1.5-4.5); LYMPH % 33.3 % (24.0-44.0); MEAN CORPUSCULAR HGB CONC 33.2 g/dl (32.0-36.5); MEAN CORPUSCULAR VOLUME 96.5 fl (80.0-96.0); MONO # 0.3 K/mm3 (0.0-0.8); MONO % 5.8 % (0.0-5.0); NEUTROPHILS # 3.4 K/mm3 (1.8-7.7); NEUTROPHILS % 58.1 % (36.0-66.0); PLATELET COUNT, AUTOMATED 207 k/mm3 (150-450); RED CELL DISTRIBUTION WIDTH 20.5 % (11.5-14.5); WHITE BLOOD COUNT 5.9 K/mm3 (4.0-10.0)
[2017-01-16 06:37] LABS: ANION GAP 7 MEQ/L (8-16); BLOOD UREA NITROGEN 7 MG/DL (7-18); CALCIUM LEVEL 7.6 MG/DL (8.5-10.1); CARBON DIOXIDE LEVEL 32 MEQ/L (21-32); CHLORIDE LEVEL 100 MEQ/L (98-107); CREATININE FOR GFR 0.48 MG/DL (0.55-1.02); GLOMERULAR FILTRATION RATE > 60.0 (>51); GLUCOSE, FASTING 87 MG/DL (70-105); MAGNESIUM LEVEL 1.7 MG/DL (1.8-2.4); PHOSPHORUS LEVEL 3.7 MG/DL (2.5-4.9); POTASSIUM SERUM 3.1 MEQ/L (3.5-5.1); SODIUM LEVEL 139 MEQ/L (136-145)
--- NOTE | 2017-01-16 06:41 | REP ---
Clinical: Shortness of breath. Comparison: 01/13/2017. Findings: Mediastinum and cardiac silhouette are stable and within normal limits for portable technique. Trace right basilar atelectasis suggested. No effusion. No pneumothorax. Skeletal structures intact and stable. Impression: Trace right basilar atelectasis. Signed by Yuan Agarwal MD 01/16/2017 06:33 A
[2017-01-16] MEDS: POTASSIUM CHLORIDE 10 MEQ SR TABLET PO ONE ×2 (07:30→08:26)
[2017-01-16 08:00] VITALS: BP 108/67
[2017-01-16] MEDS: IPRATROPIUM 0.5MG/ALBUTEROL 2.5MG INH SOL UD 3ML (DUONEB)(J7620) NEB SCH ×4 (08:00→23:32)
[2017-01-16] MEDS: NICOTINE 21MG/24HR 1 EA TRANSDERMAL TD SCH (08:25)
[2017-01-16] MEDS: FOLIC ACID 1 MG TAB PO SCH ×2 (08:26→08:37)
[2017-01-16] MEDS: THIAMINE 100 MG TAB PO SCH ×2 (08:26→08:39)
[2017-01-16] MEDS: PANTOPRAZOLE 40MG TAB (PROTONIX) PO SCH ×2 (08:27→08:37)
--- NOTE | 2017-01-16 08:33 | ECGEPIP ---
Stationary ECG Study [facility] - ED Test Date: 2017-01-13 Pat Name: LARRY BRUSH Department: Room: [place] [address] Gender: F Cashier: rn : 1960 Requested By: FLOYD Cohen Order Number: [id number] Reading MD: Amina Aldrich Measurements Intervals [place] Rate: 88 P: [place]: 0 QRS: 54 QRSD: 113 T: 20 QT: 435 QTc: 528 Interpretive Statements SUPRAVENTRICULAR RHYTHM LATERAL MYOCARDIAL INFARCTION, PROBABLY OLD PROBABLE INFERIOR MYOCARDIAL INFARCTION, PROBABLY OLD WITH POSTERIOR EXTENSION NO PRIOR FOR COMPARISON Electronically Signed On 01-16-2017 8:33:48 EDT by Amina Aldrich
[2017-01-16] MEDS: HALOPERIDOL 5 MG/ML VIAL (J1630) IV PRN ×2 (11:24→19:55)
[2017-01-16 12:00] VITALS: BP 110/65
--- NOTE | 2017-01-16 14:26 | IPN ---
DATE: 01/16/2017 Ms. Munoz is seen this morning on her bedside. She is quite agitated, confused and restless. She has a sitter in the room. She does have a history of chronic alcohol use and was admitted with severe electrolyte abnormalities. I was consulted for her electrolyte problems. She has been treated with IV fluids and supplemental potassium, phosphorus and magnesium. Her electrolytes have improved significantly. Over last 24 hours, she has significant change in her mental status. She is quite disoriented and agitated today. She probably has some kind of withdrawal. In any event, nursing staff reports that she has been refusing medications and did not eat much. PHYSICAL EXAMINATION: Temperature 99.8 degrees Fahrenheit, heart rate 107 per minute and respiratory rate 18 per minute. Blood pressure 108/67 mmHg and oxygen saturation 93% on room air. The patient is not very cooperative for a complete physical exam. Her lungs sound diminished with bilateral wheezing and rhonchi. Heart sounds are tachycardiac. Abdomen is soft and nontender. Extremities have no cyanosis or clubbing. Neurologically, she is quite agitated and restless. Today's labs show sodium level 139, potassium 3.1, CO2 of 32, BUN 7, creatinine 0.48, calcium 7.6, phosphorus 3.7 and magnesium 1.7. Hemoglobin is 9.4 and hematocrit 28.2. PROBLEMS: 1. Severe hypokalemia. Potassium level has improved. Apparently, she has been refusing oral medications and also has not been receiving IV fluid due to agitation. We will try to give her one dose of oral potassium chloride 40 mEq if she will take it. 2. Hypophosphatemia. Phosphorus level has improved. She was receiving potassium phosphate in her IV fluid, which has been off at present, probably related to her agitation. 3. Hyponatremia. Sodium level has corrected. 4. Wheezing and disorientation. I am concerned about the possibility of aspiration. She probably has alcohol withdrawal. I have discussed with Dr. Hilton and have suggested to address these issues by hospitalist service. From a renal standpoint, the patient has improved significantly. Her other issues are being cared by hospitalist service. I am signing off her case.
[2017-01-16] MEDS ORDERED: LORazepam 2 MG/ML VIAL (J2060) IV PRN (15:30)
[2017-01-16] MEDS ORDERED: OXAZEPAM 10 MG CAP PO PRN (15:30)
--- NOTE | 2017-01-16 15:39 | IPNPDOC ---
Subjective Date Seen The patient was seen on 01/16/17. Subjective Chief Complaint/HPI The patient is a 56-year-old female admitted with a reason for visit of Hypokalemia. Events since last encounter Patient actively resisting exam, swearing, calls me unrepeatable names, seemed confused, once nasal canula oxygen returned she became much more comfortable General: Reports: ROS Unobtainable Objective Physical Examination General Exam: Positive: No Acute Distress, Other (frail), Negative: Cooperative Eye Exam: Negative: Sclera icteric ENT Exam: Positive: Mucous membr. moist/pink Chest Exam: Positive: Diminished, Other (upper airway sounds), Negative: Wheezing Heart Exam: Positive: Rate Normal, Normal S1, Normal S2 Telemetry: Positive: No significant arrhythmia Abdomen Exam: Positive: Normal bowel sounds, Soft, Negative: Tenderness Extremity Exam: Negative: Edema Psych Exam: Positive: Oriented x 3 Assessment /Plan Problems (1) Hypoxemia Status: Acute Problem Text: Patient took off oxygen supplement this am, and became hypoxic ensuing delerium required the use of haldol- with return of oxygen supplement and adequate pulse ox patient is much more compliant to therapy Dr. Olivares concerned for aspiration, will get xray- but hypoxemia induced delerium seems much more likely for her change in mental status this am Aspiration event of course, is still quite possible (2) HTN (hypertension) Status: Chronic Discussed With: Patient Problem Specific Plan: Monitor Clinically Problem Text: lisinopril as per home medications (3) Hypokalemia Status: Acute Response to Treatment: Improving, Progressing Discussed With: Pediatric Nurse, Patient Problem Specific Plan: Consult Specialist, Repeat Labs Problem Text: likely secondary to alcoholism - significantly improved - continue with oral supplementation Patient refused some kcl this am- reordered additional this afternoon (4) Hypomagnesemia Status: Acute Response to Treatment: Improving Discussed With: Pediatric Nurse, Patient Problem Specific Plan: Consult Specialist, Repeat Labs Problem Text: replete with iv magnesium as needed (5) Hypophosphatemia Status: Acute Response to Treatment: Improving Discussed With: Pediatric Nurse Problem Specific Plan: Consult Specialist Problem Text: repleted (6) Anemia Status: Acute Discussed With: Patient Problem Specific Plan: Monitor Clinically, Repeat Labs Problem Text: Stable Not iron, b12, or folate deficient (7) Nicotine abuse Status: Chronic Discussed With: Patient Problem Text: counselling provided at bedside. continue with NRT. (8) Alcohol abuse Status: Chronic Discussed With: Patient Problem Specific Plan: Monitor Clinically Problem Text: She states her last drink was 5 days ago, and has 3 drinks per day. Sister called today advising patient is alcoholic and drinks up to a quart of tequila per day Serax scheduled and prn implemented for withdrawal symptoms, with ativan as needed (9) Prolonged QT interval Problem Text: at presentation, likely related to low Mg repeat today Plan/VTE VTE Prophylaxis Ordered?: Yes (mechanical) Plan IVF: Continue Diet: Continue Current Therapy: PT, OT Medications: Replete Electrolytes IV, Replete Electrolytes PO Diagnostics: Repeat Labs in AM Anticipated Discharge: Home VS, I&O, 24H, Fishbone Vital Signs/I&O Vital Signs Date Time Temp Pulse Resp B/P (MAP) Pulse Ox O2 Delivery O2 Flow Rate FiO2 01/16/17 12:00 99.1 103 18 110/65 (80) 99 Room Air 01/16/17 05:45 2.0 I&O- Last 24 Hours up to 6 AM 01/16/17 05:59 Intake Total 1680 ml Output Total 350 ml Balance 1330 ml Laboratory Data 24H LABS Laboratory Tests 2 01/16/17 05:45: White Blood Count 5.9, Red Blood Count 2.92L, Hemoglobin 9.4L, Hematocrit 28.2L , Mean Corpuscular Volume 96.5H, Mean Corpuscular Hemoglobin 32.0, Mean Corpuscular Hemoglobin Concent 33.2, Red Cell Distribution Width 20.5H, Platelet Count 207, Neutrophils (%) (Auto) 58.1, Lymphocytes (%) (Auto) 33.3, Monocytes (%) (Auto) 5.8H, Eosinophils (%) (Auto) 0.7, Basophils (%) (Auto) 0.4 , Neutrophils # (Auto) 3.4, Lymphocytes # (Auto) 2.1, Monocytes # (Auto) 0.3, Eosinophils # (Auto) 0.0, Basophils # (Auto) 0.0, Large Unclassified Cells % 1.7 , Large Unclassified Cells # 0.1, Anion Gap 7L, Glomerular Filtration Rate > 60.0, Blood Urea Nitrogen 7, Creatinine 0.48L, Sodium Level 139, Potassium Level 3.1L, Chloride Level 100, Carbon Dioxide Level 32, Calcium Level 7.6L, Phosphorus Level 3.7#, Magnesium Level 1.7L 01/16/17 06:18: Blood Gas Bicarbonate Standard 24.9, Arterial Blood pH 7.486H, Arterial Blood Partial Pressure CO2 32.2L, Arterial Blood Partial Pressure O2 52.6L, Arterial Blood Total CO2 24.8, Arterial Blood HCO3 23.8, Arterial Blood Base Excess 0.8, Arterial Blood Oxygen Saturation 84.9L 01/16/17 07:58: Ammonia 49H CBC/BMP Laboratory Tests 01/16/17 05:45 Red Blood Count 2.92 L, Mean Corpuscular Volume 96.5 H, Mean Corpuscular Hemoglobin 32.0, Mean Corpuscular Hemoglobin Concent 33.2, Red Cell Distribution Width 20.5 H, Neutrophils (%) (Auto) 58.1, Lymphocytes (%) (Auto) 33.3, Monocytes (%) (Auto) 5.8 H, Eosinophils (%) (Auto) 0.7, Basophils (%) ( Auto) 0.4, Neutrophils # (Auto) 3.4, Lymphocytes # (Auto) 2.1, Monocytes # (Auto ) 0.3, Eosinophils # (Auto) 0.0, Basophils # (Auto) 0.0, Calcium Level 7.6 L OLGA APODACA MD Jan 16, 2017 15:39
[2017-01-16] MEDS ORDERED: POTASSIUM CHLORIDE 10 MEQ SR TABLET PO ONE (15:45)
[2017-01-16 16:00] VITALS: BP 148/80
[2017-01-16] MEDS ORDERED: MAG SULF 1GM/100ML (MAG RUN) 1 GM in APPROPRIATE DILUENT 1 EA IV SCH (16:00)
[2017-01-16 20:43] VITALS: BP 105/68
[2017-01-16 23:24] VITALS: BP 111/68
[2017-01-17] MEDS: HALOPERIDOL 5 MG/ML VIAL (J1630) IV PRN (05:21)
[2017-01-17 05:23] VITALS: BP 119/69
[2017-01-17 05:38] LABS: BASO % 0.2 % (0.0-1.0); EOS % 0.2 % (0.0-3.0); LARGE UNSTAINED CELL # 0.2 K/mm3 (0.0-0.4); LARGE UNSTAINED CELL % 2.7 % (0.0-4.0); LYMPH # 2.3 K/mm3 (1.5-4.5); LYMPH % 28.5 % (24.0-44.0); MEAN CORPUSCULAR HEMOGLOBIN 31.2 pg (27.0-33.0); MEAN CORPUSCULAR HGB CONC 32.5 g/dl (32.0-36.5); MONO # 0.5 K/mm3 (0.0-0.8); MONO % 5.6 % (0.0-5.0); NEUTROPHILS # 5.1 K/mm3 (1.8-7.7); NEUTROPHILS % 62.7 % (36.0-66.0); PLATELET COUNT, AUTOMATED 281 k/mm3 (150-450); WHITE BLOOD COUNT 8.1 K/mm3 (4.0-10.0)
[2017-01-17 05:59] LABS: ANION GAP 8 MEQ/L (8-16); BLOOD UREA NITROGEN 8 MG/DL (7-18); CALCIUM LEVEL 7.6 MG/DL (8.5-10.1); CARBON DIOXIDE LEVEL 32 MEQ/L (21-32); CHLORIDE LEVEL 97 MEQ/L (98-107); CREATININE FOR GFR 0.54 MG/DL (0.55-1.02); GLOMERULAR FILTRATION RATE > 60.0 (>51); GLUCOSE, FASTING 80 MG/DL (70-105); MAGNESIUM LEVEL 1.8 MG/DL (1.8-2.4); POTASSIUM SERUM 3.1 MEQ/L (3.5-5.1); SODIUM LEVEL 137 MEQ/L (136-145)
[2017-01-17] MEDS: OXAZEPAM 10 MG CAP PO SCH ×3 (06:00→22:25)
[2017-01-17 08:00] VITALS: BP 112/57
[2017-01-17] MEDS ORDERED: POTASSIUM CHLORIDE 10 MEQ SR TABLET PO ONE (08:00)
[2017-01-17] MEDS: IPRATROPIUM 0.5MG/ALBUTEROL 2.5MG INH SOL UD 3ML (DUONEB)(J7620) NEB SCH ×3 (08:00→23:18)
[2017-01-17] MEDS: THIAMINE 100 MG TAB PO SCH (09:00)
[2017-01-17] MEDS: PANTOPRAZOLE 40MG TAB (PROTONIX) PO SCH (09:00)
[2017-01-17] MEDS: FOLIC ACID 1 MG TAB PO SCH (09:00)
--- NOTE | 2017-01-17 09:00 | IPNPDOC ---
Subjective Date Seen The patient was seen on 01/17/17. Subjective Chief Complaint/HPI The patient is a 56-year-old female admitted with a reason for visit of Hypokalemia. Events since last encounter Still resistant to history and exam, but less so than yesterday. No complaint of pain, refusing meds intermittently, does not feel shaky or anxious, wants to rest Constitutional: Denies: Chills, Fever Pulmonary: Denies: Dyspnea, Cough Cardiovascular: Denies: Chest Pain Gastrointestinal: Denies: Nausea, Vomiting, Abdominal Pain Objective Physical Examination General Exam: Positive: No Acute Distress, Other (frail), Negative: Cooperative Eye Exam: Negative: Sclera icteric ENT Exam: Positive: Mucous membr. moist/pink Chest Exam: Positive: Diminished, Negative: Rales, Rhonchi, Wheezing Heart Exam: Positive: Rate Normal, Normal S1, Normal S2 Telemetry: Positive: No significant arrhythmia Abdomen Exam: Positive: Normal bowel sounds, Soft, Negative: Tenderness Extremity Exam: Negative: Edema Psych Exam: Positive: Oriented x 3 Assessment /Plan Problems (1) Hypoxemia Status: Acute Problem Text: Patient took off oxygen supplement 01/16/17 and became hypoxic ensuing delerium required the use of haldol- with return of oxygen supplement and adequate pulse ox patient is much more compliant to therapy Dr. Olivares concerned for aspiration, xray- done 01/16/17 shows no significant infiltrate but hypoxemia induced delerium seems much more likely for her change in mental status Aspiration event of course, is still quite possible (2) HTN (hypertension) Status: Chronic Discussed With: Patient Problem Specific Plan: Monitor Clinically Problem Text: lisinopril as per home medications (3) Hypokalemia Status: Acute Response to Treatment: Improving, Progressing Discussed With: Retail Receiving Clerk, Patient Problem Specific Plan: Consult Specialist, Repeat Labs Problem Text: likely secondary to alcoholism - significantly improved - continue with oral supplementation If refuses po, will give iv (4) Hypomagnesemia Status: Acute Response to Treatment: Improving Discussed With: Retail Receiving Clerk, Patient Problem Specific Plan: Consult Specialist, Repeat Labs Problem Text: replete with iv magnesium as needed (5) Hypophosphatemia Status: Acute Response to Treatment: Improving Discussed With: Retail Receiving Clerk Problem Specific Plan: Consult Specialist Problem Text: repleted (6) Anemia Status: Acute Discussed With: Patient Problem Specific Plan: Monitor Clinically, Repeat Labs Problem Text: Stable Not iron, b12, or folate deficient (7) Nicotine abuse Status: Chronic Discussed With: Patient Problem Text: counselling provided at bedside. continue with NRT. (8) Alcohol abuse Status: Chronic Discussed With: Patient Problem Specific Plan: Monitor Clinically Problem Text: She states her last drink was 5 days ago, and has 3 drinks per day. Sister called today advising patient is alcoholic and drinks up to a quart of tequila per day Serax scheduled and prn implemented for withdrawal symptoms, with ativan as needed Intermittent agitation (9) Prolonged QT interval Problem Text: at presentation, declined repeat ekg, likely related to low Mg Plan/VTE VTE Prophylaxis Ordered?: Yes (mechanical) Plan IVF: Continue Diet: Continue Current Therapy: PT, OT Medications: Replete Electrolytes IV, Replete Electrolytes PO Diagnostics: Repeat Labs in AM [facility]ticipated [facility] Vital Signs Date Time Temp Pulse Resp B/P (MAP) Pulse Ox O2 Delivery O2 Flow Rate FiO2 01/17/17 08:00 98.4 92 22 112/57 (75) 98 01/17/17 05:23 Nasal Cannula 3.0 I&O- Last 24 Hours up to 6 AM 01/17/17 06:00 Intake Total 400 ml Output Total 0 ml Balance 400 ml Laboratory Data 24H LABS Laboratory Tests 2 01/17/17 05:16: White Blood Count 8.1, Red Blood Count 3.07L, Hemoglobin 9.6L, Hematocrit 29.5L , Mean Corpuscular Volume 96.0, Mean Corpuscular Hemoglobin 31.2, Mean Corpuscular Hemoglobin Concent 32.5, Red Cell Distribution Width 20.0H, Platelet Count 281, Neutrophils (%) (Auto) 62.7, Lymphocytes (%) (Auto) 28.5, Monocytes (%) (Auto) 5.6H, Eosinophils (%) (Auto) 0.2, Basophils (%) (Auto) 0.2 , Neutrophils # (Auto) 5.1, Lymphocytes # (Auto) 2.3, Monocytes # (Auto) 0.5, Eosinophils # (Auto) 0.0, Basophils # (Auto) 0.0, Large Unclassified Cells % 2.7 , Large Unclassified Cells # 0.2, Anion Gap 8, Glomerular Filtration Rate > 60.0 , Blood Urea Nitrogen 8, Creatinine 0.54L, Sodium Level 137, Potassium Level 3.1L, Chloride Level 97L, Carbon Dioxide Level 32, Calcium Level 7.6L, Magnesium Level 1.8 CBC/BMP Laboratory Tests 01/17/17 05:16 Red Blood Count 3.07 L, Mean Corpuscular Volume 96.0, Mean Corpuscular Hemoglobin 31.2, Mean Corpuscular Hemoglobin Concent 32.5, Red Cell Distribution Width 20.0 H, Neutrophils (%) (Auto) 62.7, Lymphocytes (%) (Auto) 28.5, Monocytes (%) (Auto) 5.6 H, Eosinophils (%) (Auto) 0.2, Basophils (%) ( Auto) 0.2, Neutrophils # (Auto) 5.1, Lymphocytes # (Auto) 2.3, Monocytes # (Auto ) 0.5, Eosinophils # (Auto) 0.0, Basophils # (Auto) 0.0, Calcium Level 7.6 L OLGA APODACA MD Jan 17, 2017 09:00
[2017-01-17] MEDS: NICOTINE 21MG/24HR 1 EA TRANSDERMAL TD SCH (09:11)
[2017-01-17] MEDS: KCL 10MEQ IN 100ML SWI (KRUN) 10 MEQ in APPROPRIATE DILUENT 1 EA IV SCH ×4 (10:00→11:00)
[2017-01-17 15:00] VITALS: BP 109/55
[2017-01-17 20:07] VITALS: BP 106/65
[2017-01-17 22:00] VITALS: BP 105/64
--- NOTE | 2017-01-18 00:55 | ECGEPIP ---
Stationary ECG Study [facility] Test Date: 2017-01-16 Pat Name: LARRY BRUSH Department: Room: [place] [address] Gender: F Community Engagement Representative: : 1960 Requested By: OLGA Coon Order Number: [id number] Reading MD: López Peterson Measurements Intervals [place] Rate: 101 P: 81 [place]: 114 QRS: 61 QRSD: 90 T: 86 QT: 389 QTc: 506 Interpretive Statements SINUS TACHYCARDIA WITH SHORT MI INTERVAL Compared to the last tracing, no significant changes Electronically Signed On 01-18-2017 0:55:34 EDT by López Peterson
[2017-01-18 05:40] LABS: BASO % 0.3 % (0.0-1.0); EOS % 0.6 % (0.0-3.0); LARGE UNSTAINED CELL # 0.1 K/mm3 (0.0-0.4); LARGE UNSTAINED CELL % 2.1 % (0.0-4.0); LYMPH # 2.1 K/mm3 (1.5-4.5); LYMPH % 32.1 % (24.0-44.0); MEAN CORPUSCULAR HEMOGLOBIN 31.2 pg (27.0-33.0); MEAN CORPUSCULAR HGB CONC 32.1 g/dl (32.0-36.5); MEAN CORPUSCULAR VOLUME 97.3 fl (80.0-96.0); MONO # 0.4 K/mm3 (0.0-0.8); MONO % 5.9 % (0.0-5.0); NEUTROPHILS # 3.6 K/mm3 (1.8-7.7); NEUTROPHILS % 58.9 % (36.0-66.0); PLATELET COUNT, AUTOMATED 279 k/mm3 (150-450); RED CELL DISTRIBUTION WIDTH 20.7 % (11.5-14.5); WHITE BLOOD COUNT 6.1 K/mm3 (4.0-10.0)
[2017-01-18 06:00] VITALS: BP 118/71
[2017-01-18] MEDS: OXAZEPAM 10 MG CAP PO SCH ×3 (06:00→21:34)
[2017-01-18 06:20] LABS: ANION GAP 6 MEQ/L (8-16); BLOOD UREA NITROGEN 9 MG/DL (7-18); CARBON DIOXIDE LEVEL 33 MEQ/L (21-32); CHLORIDE LEVEL 101 MEQ/L (98-107); CREATININE FOR GFR 0.61 MG/DL (0.55-1.02); GLOMERULAR FILTRATION RATE > 60.0 (>51); GLUCOSE, FASTING 93 MG/DL (70-105); MAGNESIUM LEVEL 1.5 MG/DL (1.8-2.4); POTASSIUM SERUM 3.2 MEQ/L (3.5-5.1); SODIUM LEVEL 140 MEQ/L (136-145)
[2017-01-18] MEDS: IPRATROPIUM 0.5MG/ALBUTEROL 2.5MG INH SOL UD 3ML (DUONEB)(J7620) NEB SCH ×3 (07:12→23:24)
[2017-01-18 09:00] VITALS: BP 118/71
[2017-01-18] MEDS: FOLIC ACID 1 MG TAB PO SCH (09:06)
[2017-01-18] MEDS: NICOTINE 21MG/24HR 1 EA TRANSDERMAL TD SCH (09:06)
[2017-01-18] MEDS: PANTOPRAZOLE 40MG TAB (PROTONIX) PO SCH (09:06)
[2017-01-18] MEDS: THIAMINE 100 MG TAB PO SCH (09:06)
--- NOTE | 2017-01-18 13:34 | IPNPDOC ---
Subjective Date Seen The patient was seen on 01/18/17. Subjective Chief Complaint/HPI The patient is a 56-year-old female admitted with a reason for visit of Hypokalemia. Events since last encounter Concerned about going home to previous living arrangement, plans to live with her sister temporarily Tolerating diet, taking medications, no complaint of pain Constitutional: Denies: Chills, Fever Pulmonary: Denies: Dyspnea, Cough Cardiovascular: Denies: Chest Pain Gastrointestinal: Denies: Nausea, Vomiting, Abdominal Pain Objective Physical Examination General Exam: Positive: Alert, Cooperative, No Acute Distress, Other (frail), Negative: Mild Distress Eye Exam: Negative: Sclera icteric ENT Exam: Positive: Mucous membr. moist/pink Chest Exam: Positive: Normal air movement, Negative: Rales, Rhonchi, Wheezing Heart Exam: Positive: Rate Normal, Normal S1, Normal S2 Abdomen Exam: Positive: Normal bowel sounds, Soft, Negative: Tenderness Extremity Exam: Negative: Edema Psych Exam: Positive: Oriented x 3, Negative: Anxiety Assessment /Plan Problems (1) Hypoxemia Status: Acute Problem Text: Patient took off oxygen supplement 01/16/17 and became hypoxic ensuing delerium required the use of haldol- with return of oxygen supplement and adequate pulse ox patient is much more compliant to therapy Dr. Olivares concerned for aspiration, xray- done 01/16/17 shows no significant infiltrate but hypoxemia induced delerium seems much more likely for her change in mental status Aspiration event of course, is still quite possible 01/18/17- not hypoxic during my exam on room air- pulse ox 96% (2) HTN (hypertension) Status: Chronic Discussed With: Patient Problem Specific Plan: Monitor Clinically Problem Text: lisinopril as per home medications BP not elevated, monitor clinically (3) Hypokalemia Status: Acute Response to Treatment: Improving, Progressing Discussed With: Mechanical Systems Control Engineer, Patient Problem Specific Plan: Consult Specialist, Repeat Labs Problem Text: likely secondary to alcoholism - significantly improved - continue with oral supplementation Taking meds without incident (4) Hypomagnesemia Status: Acute Response to Treatment: Improving Discussed With: Mechanical Systems Control Engineer, Patient Problem Specific Plan: Consult Specialist, Repeat Labs Problem Text: replete with iv magnesium as needed (5) Hypophosphatemia Status: Acute Response to Treatment: Improving Discussed With: Mechanical Systems Control Engineer Problem Specific Plan: Consult Specialist Problem Text: repleted (6) Anemia Status: Acute Discussed With: Patient Problem Specific Plan: Monitor Clinically, Repeat Labs Problem Text: Stable Not iron, b12, or folate deficient (7) Nicotine abuse Status: Chronic Discussed With: Patient Problem Text: counselling provided at bedside. continue with NRT. (8) Alcohol abuse Status: Chronic Discussed With: Patient Problem Specific Plan: Monitor Clinically Problem Text: She states her last drink was 5 days ago, and has 3 drinks per day. Sister called today advising patient is alcoholic and drinks up to a quart of tequila per day Serax scheduled and prn implemented for withdrawal symptoms, with ativan as needed Intermittent agitation during her stay, but today quiet affable - no longer has a sitter (9) Prolonged QT interval Problem Text: at presentation, even with now with repleted magnesium- will d/c haldol Plan/VTE VTE Prophylaxis Ordered?: Yes (mechanical) Plan IVF: Continue Diet: Continue Current Therapy: PT, OT Medications: Replete Electrolytes IV, Replete Electrolytes PO Diagnostics: Repeat Labs in AM Anticipated Discharge: Home VS, I&O, 24H, [facility] Vital Signs/I&O Vital Signs Date Time Temp Pulse Resp B/P (MAP) Pulse Ox O2 Delivery O2 Flow Rate FiO2 01/18/17 09:00 Nasal Cannula 3.0 01/18/17 09:00 92 118/71 01/18/17 06:00 98.8 20 94 I&O- Last 24 Hours up to 6 AM 01/18/17 05:59 Intake Total 860 ml Output Total 275 ml Balance 585 ml Laboratory Data 24H LABS Laboratory Tests 2 01/18/17 05:18: White Blood Count 6.1, Red Blood Count 2.85L, Hemoglobin 8.9L, Hematocrit 27.8L , Mean Corpuscular Volume 97.3H, Mean Corpuscular Hemoglobin 31.2, Mean Corpuscular Hemoglobin Concent 32.1, Red Cell Distribution Width 20.7H, Platelet Count 279, Neutrophils (%) (Auto) 58.9, Lymphocytes (%) (Auto) 32.1, Monocytes (%) (Auto) 5.9H, Eosinophils (%) (Auto) 0.6, Basophils (%) (Auto) 0.3 , Neutrophils # (Auto) 3.6, Lymphocytes # (Auto) 2.1, Monocytes # (Auto) 0.4, Eosinophils # (Auto) 0.0, Basophils # (Auto) 0.0, Large Unclassified Cells % 2.1 , Large Unclassified Cells # 0.1, Anion Gap 6L, Glomerular Filtration Rate > 60.0, Blood Urea Nitrogen 9, Creatinine 0.61, Sodium Level 140, Potassium Level 3.2L, Chloride Level 101, Carbon Dioxide Level 33H, Calcium Level 8.0L, Magnesium Level 1.5L CBC/BMP Laboratory Tests 01/18/17 05:18 Red Blood Count 2.85 L, Mean Corpuscular Volume 97.3 H, Mean Corpuscular Hemoglobin 31.2, Mean Corpuscular Hemoglobin Concent 32.1, Red Cell Distribution Width 20.7 H, Neutrophils (%) (Auto) 58.9, Lymphocytes (%) (Auto) 32.1, Monocytes (%) (Auto) 5.9 H, Eosinophils (%) (Auto) 0.6, Basophils (%) ( Auto) 0.3, Neutrophils # (Auto) 3.6, Lymphocytes # (Auto) 2.1, Monocytes # (Auto ) 0.4, Eosinophils # (Auto) 0.0, Basophils # (Auto) 0.0, Calcium Level 8.0 L OLGA APODACA MD Jan 18, 2017 13:34
[2017-01-18 14:00] VITALS: BP 119/56
[2017-01-18] MEDS ORDERED: POTASSIUM CHLORIDE 10 MEQ SR TABLET PO ONE (14:00)
[2017-01-18 22:00] VITALS: BP_SYST 119; BP_SYST 124; BP_DIAS 56; BP_DIAS 75
[2017-01-19] MEDS: OXAZEPAM 10 MG CAP PO SCH ×2 (05:31→17:13)
[2017-01-19 06:00] VITALS: BP 153/79
[2017-01-19 06:06] LABS: BASO % 0.5 % (0.0-1.0); EOS % 0.4 % (0.0-3.0); LARGE UNSTAINED CELL # 0.2 K/mm3 (0.0-0.4); LARGE UNSTAINED CELL % 2.9 % (0.0-4.0); LYMPH # 2.3 K/mm3 (1.5-4.5); LYMPH % 36.4 % (24.0-44.0); MEAN CORPUSCULAR HEMOGLOBIN 31.4 pg (27.0-33.0); MEAN CORPUSCULAR HGB CONC 32.1 g/dl (32.0-36.5); MEAN CORPUSCULAR VOLUME 97.7 fl (80.0-96.0); MONO # 0.4 K/mm3 (0.0-0.8); MONO % 6.1 % (0.0-5.0); NEUTROPHILS # 3.1 K/mm3 (1.8-7.7); NEUTROPHILS % 53.8 % (36.0-66.0); PLATELET COUNT, AUTOMATED 283 k/mm3 (150-450); RED CELL DISTRIBUTION WIDTH 20.6 % (11.5-14.5); WHITE BLOOD COUNT 5.8 K/mm3 (4.0-10.0)
[2017-01-19 06:15] LABS: ANION GAP 9 MEQ/L (8-16); BLOOD UREA NITROGEN 10 MG/DL (7-18); CALCIUM LEVEL 8.5 MG/DL (8.5-10.1); CARBON DIOXIDE LEVEL 28 MEQ/L (21-32); CHLORIDE LEVEL 104 MEQ/L (98-107); CREATININE FOR GFR 0.62 MG/DL (0.55-1.02); GLOMERULAR FILTRATION RATE > 60.0 (>51); GLUCOSE, FASTING 90 MG/DL (70-105); MAGNESIUM LEVEL 1.6 MG/DL (1.8-2.4); SODIUM LEVEL 141 MEQ/L (136-145)
[2017-01-19] MEDS: IPRATROPIUM 0.5MG/ALBUTEROL 2.5MG INH SOL UD 3ML (DUONEB)(J7620) NEB SCH ×3 (07:10→23:08)
[2017-01-19 09:00] VITALS: BP 141/82
[2017-01-19] MEDS: NICOTINE 21MG/24HR 1 EA TRANSDERMAL TD SCH (09:19)
[2017-01-19] MEDS: THIAMINE 100 MG TAB PO SCH (09:20)
[2017-01-19] MEDS: FOLIC ACID 1 MG TAB PO SCH (09:20)
[2017-01-19] MEDS: PANTOPRAZOLE 40MG TAB (PROTONIX) PO SCH (09:20)
[2017-01-19 10:00] VITALS: BP 141/82
[2017-01-19] MEDS: POTASSIUM CHLORIDE 10 MEQ SR TABLET PO SCH ×2 (10:07→20:50)
[2017-01-19] MEDS: MAG SULF 1GM/100ML (MAG RUN) 1 GM in APPROPRIATE DILUENT 1 EA IV SCH ×2 (10:08→11:00)
--- NOTE | 2017-01-19 12:13 | IPNPDOC ---
Subjective Date Seen The patient was seen on 01/19/17. Subjective Chief Complaint/HPI The patient is a 56-year-old female admitted with a reason for visit of Hypokalemia. Events since last encounter Feeling well, not tremulous, not anxious, tolerating diet, looking forward to leaving to live at sisters' house, from her boyfriend as of today, he is admitted to hospital as well, making plans to have her deplorable living conditions improved Constitutional: Denies: Chills, Fever Skin: Denies: Rash Pulmonary: Denies: Dyspnea, Cough Cardiovascular: Denies: Chest Pain, Palpitations Gastrointestinal: Denies: Nausea, Vomiting, Abdominal Pain Objective Physical Examination General Exam: Positive: Alert, Cooperative, No Acute Distress, Other (frail), Negative: Mild Distress Eye Exam: Positive: Conjunctiva & lids normal, Negative: Sclera icteric ENT Exam: Positive: Mucous membr. moist/pink Chest Exam: Positive: Normal air movement, Negative: Rales, Rhonchi, Wheezing Heart Exam: Positive: Rate Normal, Normal S1, Normal S2 Abdomen Exam: Positive: Normal bowel sounds, Soft, Negative: Tenderness Extremity Exam: Negative: Edema Psych Exam: Positive: Oriented x 3, Negative: Anxiety Assessment /Plan Problems (1) Hypoxemia Status: Acute Problem Text: Patient took off oxygen supplement 01/16/17 and became hypoxic ensuing delerium required the use of haldol- with return of oxygen supplement and adequate pulse ox patient is much more compliant to therapy Dr. Olivares concerned for aspiration, xray- done 01/16/17 shows no significant infiltrate but hypoxemia induced delerium seems much more likely for her change in mental status Aspiration event of course, is still quite possible 01/18/17- not hypoxic during my exam on room air- pulse ox 96% 01/19/17- hypoxia appears to have resolved (2) HTN (hypertension) Status: Chronic Discussed With: Patient Problem Specific Plan: Monitor Clinically Problem Text: lisinopril as per home medications BP not elevated, monitor clinically (3) Hypokalemia Status: Acute Response to Treatment: Improving, Progressing Discussed With: Pepper Picker, Patient Problem Specific Plan: Consult Specialist, Repeat Labs Problem Text: likely secondary to alcoholism - significantly improved - continue with oral supplementation Taking meds without incident- replete 01/19/17 (4) Hypomagnesemia Status: Acute Response to Treatment: Improving Discussed With: Pepper Picker, Patient Problem Specific Plan: Consult Specialist, Repeat Labs Problem Text: replete with iv magnesium 01/19/17 (5) Hypophosphatemia Status: Acute Response to Treatment: Improving Discussed With: Pepper Picker Problem Specific Plan: Consult Specialist Problem Text: repleted (6) Anemia Status: Acute Discussed With: Patient Problem Specific Plan: Monitor Clinically, Repeat Labs Problem Text: Stable Not iron, b12, or folate deficient (7) Nicotine abuse Status: Chronic Discussed With: Patient Problem Text: counselling provided at bedside. continue with NRT. (8) Alcohol abuse Status: Chronic Discussed With: Patient Problem Specific Plan: Monitor Clinically Problem Text: She states her last drink was 5 days ago (from admission), and has 3 drinks per day. Sister called today advising patient is alcoholic and drinks up to a quart of tequila per day Serax scheduled and prn implemented for withdrawal symptoms, with ativan as needed- weaning Intermittent agitation during her stay, but today quiet affable - no longer has a sitter (9) Prolonged QT interval Problem Text: at presentation, even with now with repleted magnesium- will d/c haldol Plan/VTE VTE Prophylaxis Ordered?: Yes (mechanical) Plan IVF: Continue Diet: Continue Current Therapy: PT, OT Medications: Replete Electrolytes IV, Replete Electrolytes PO Diagnostics: Repeat Labs in AM Anticipated Discharge: Home VS, I&O, 24H, [facility] Vital Signs/I&O Vital Signs Date Time Temp Pulse Resp B/P (MAP) Pulse Ox O2 Delivery O2 Flow Rate FiO2 01/19/17 11:16 Room Air 01/19/17 10:00 98.5 96 19 141/82 (101) 90 01/18/17 09:00 3.0 I&O- Last 24 Hours up to 6 AM 01/19/17 06:00 Intake Total 1320 ml Output Total 0 ml Balance 1320 ml Laboratory Data 24H LABS Laboratory Tests 2 01/19/17 05:34: White Blood Count 5.8, Red Blood Count 2.90L, Hemoglobin 9.1L, Hematocrit 28.4L , Mean Corpuscular Volume 97.7H, Mean Corpuscular Hemoglobin 31.4, Mean Corpuscular Hemoglobin Concent 32.1, Red Cell Distribution Width 20.6H, Platelet Count 283, Neutrophils (%) (Auto) 53.8, Lymphocytes (%) (Auto) 36.4, Monocytes (%) (Auto) 6.1H, Eosinophils (%) (Auto) 0.4, Basophils (%) (Auto) 0.5 , Neutrophils # (Auto) 3.1, Lymphocytes # (Auto) 2.3, Monocytes # (Auto) 0.4, Eosinophils # (Auto) 0.0, Basophils # (Auto) 0.0, Large Unclassified Cells % 2.9 , Large Unclassified Cells # 0.2, Anion Gap 9, Glomerular Filtration Rate > 60.0 , Blood Urea Nitrogen 10, Creatinine 0.62, Sodium Level 141, Potassium Level 3.0L, Chloride Level 104, Carbon Dioxide Level 28, Calcium Level 8.5, Magnesium Level 1.6L CBC/BMP Laboratory Tests 01/19/17 05:34 Red Blood Count 2.90 L, Mean Corpuscular Volume 97.7 H, Mean Corpuscular Hemoglobin 31.4, Mean Corpuscular Hemoglobin Concent 32.1, Red Cell Distribution Width 20.6 H, Neutrophils (%) (Auto) 53.8, Lymphocytes (%) (Auto) 36.4, Monocytes (%) (Auto) 6.1 H, Eosinophils (%) (Auto) 0.4, Basophils (%) ( Auto) 0.5, Neutrophils # (Auto) 3.1, Lymphocytes # (Auto) 2.3, Monocytes # (Auto ) 0.4, Eosinophils # (Auto) 0.0, Basophils # (Auto) 0.0, Calcium Level 8.5 OLGA APODACA MD Jan 19, 2017 12:13
[2017-01-19 14:00] VITALS: BP 145/65
[2017-01-19 21:00] VITALS: BP 139/76
[2017-01-19 22:00] VITALS: BP 139/76
[2017-01-20] MEDS: OXAZEPAM 10 MG CAP PO SCH (05:08)
[2017-01-20 06:00] VITALS: BP 146/74
[2017-01-20 06:11] LABS: BASO % 0.4 % (0.0-1.0); EOS % 0.6 % (0.0-3.0); LARGE UNSTAINED CELL # 0.2 K/mm3 (0.0-0.4); LARGE UNSTAINED CELL % 2.3 % (0.0-4.0); LYMPH # 2.4 K/mm3 (1.5-4.5); LYMPH % 32.1 % (24.0-44.0); MEAN CORPUSCULAR HEMOGLOBIN 31.7 pg (27.0-33.0); MEAN CORPUSCULAR HGB CONC 32.2 g/dl (32.0-36.5); MEAN CORPUSCULAR VOLUME 98.2 fl (80.0-96.0); MONO # 0.3 K/mm3 (0.0-0.8); MONO % 4.4 % (0.0-5.0); NEUTROPHILS # 4.3 K/mm3 (1.8-7.7); NEUTROPHILS % 60.2 % (36.0-66.0); PLATELET COUNT, AUTOMATED 290 k/mm3 (150-450); RED CELL DISTRIBUTION WIDTH 20.7 % (11.5-14.5); WHITE BLOOD COUNT 7.1 K/mm3 (4.0-10.0)
[2017-01-20 06:21] LABS: ANION GAP 8 MEQ/L (8-16); BLOOD UREA NITROGEN 11 MG/DL (7-18); CALCIUM LEVEL 8.8 MG/DL (8.5-10.1); CARBON DIOXIDE LEVEL 27 MEQ/L (21-32); CHLORIDE LEVEL 105 MEQ/L (98-107); CREATININE FOR GFR 0.63 MG/DL (0.55-1.02); GLOMERULAR FILTRATION RATE > 60.0 (>51); GLUCOSE, FASTING 86 MG/DL (70-105); MAGNESIUM LEVEL 1.9 MG/DL (1.8-2.4); SODIUM LEVEL 140 MEQ/L (136-145)
[2017-01-20] MEDS: IPRATROPIUM 0.5MG/ALBUTEROL 2.5MG INH SOL UD 3ML (DUONEB)(J7620) NEB SCH (07:16)
[2017-01-20 07:17] VITALS: O2SAT 93
[2017-01-20 09:00] VITALS: BP 142/70
[2017-01-20] MEDS: NICOTINE 21MG/24HR 1 EA TRANSDERMAL TD SCH (09:04)
[2017-01-20] MEDS: THIAMINE 100 MG TAB PO SCH (09:04)
[2017-01-20] MEDS: PANTOPRAZOLE 40MG TAB (PROTONIX) PO SCH (09:04)
[2017-01-20] MEDS: FOLIC ACID 1 MG TAB PO SCH (09:04)
[2017-01-20] MEDS ORDERED: FOLI1TAB2 PO (09:41)
[2017-01-20] MEDS ORDERED: NICO21PAT TD (09:41)
[2017-01-20] MEDS ORDERED: THIA100TA PO (09:41)
[2017-01-20] MEDS ORDERED: OXAZ10CA PO (09:41)
--- NOTE | 2017-01-20 11:37 | DS.PDOC ---
Discharge Summary General Date of Admission Jan 13, 2017 at 23:43 Date of Discharge 01/20/2017 Primary Care Physician: Mora Bartholomew Attending Physician: OLGA HILTON MD Specialist/Consultants Involve: Leland Olivares MD Discharge Summary PROCEDURES PERFORMED DURING STAY: None ADMITTING DIAGNOSES: 1. Hypokalemia. 2. Anemia. 3. Alcohol abuse. 4. Hypomagnesemia 5. Nicotine abuse DISCHARGE DIAGNOSES: 1. Alcohol abuse. 2. Anemia. 3. Hypokalemia 4. Nicotine abuse 5. Hypomagnesemia. COMPLICATIONS/CHIEF COMPLAINT: General weakness. HISTORY OF PRESENT ILLNESS: Patient is a 56-year-old female with past medical history significant for arthritis and alcohol abuse presented to the emergency room with complaints of feeling weak all over. Patient in the ER had no complaints of any pain. She told the admitting provider that she had no energy and had no appetite. Patient had reported having vomiting and diarrhea for one week prior to admission. Patient denied any abdominal pain, hematochezia and melena and hematemesis. While in the ER patient had a CT scan that revealed no evidence of acute pathology. Patient had a chest x-ray showed no active disease. CT of cervical spine was performed due to patient's reporting falling 3 times within the previous week of presented to the ER. This CT revealed grade 1 anterior spinal listhesis of C3 and C4. Revealed no fractures. Patient on presentation the ER and a magnesium of 1.1 and phosphorus of 0.7. Potassium was 1.7. Sodium was 127. And finally hemoglobin was 7.0 on admission. HOSPITAL COURSE: Patient was admitted to the hospital. Patient was worked up for the electrolyte abnormalities. Dr. Olivares, ranch hand supervisor was consulted for the severe hypokalemia and hyponatremia. Her Dr. Olivares's notes the severe hypokalemia and hyponatremia is most likely related to diarrhea and vomiting and poor oral intake. For patient's anemia iron studies were ordered and these turned back normal. Patient received 2 units of packed red blood cells. No signs of active bleeding were noted. Patient's electrolytes slowly improved with course of admission. Patient's hemoglobin was monitored and hemoglobin increased to 9.9 following transfusion. Patient started noting signs of alcohol withdrawal. Patient became very agitated and aggressive. Sunday patient reported try medications at nurse. Patient was given Serax to help with withdrawal. Patient's last drink was a week prior to admission. There was concern for possible aspiration. A repeat chest x-ray was performed during the admission and revealed some atelectasis. Patient was also given some Haldol for this change. In addition to Serax patient was given Serax when necessary and Ativan when necessary for anxiety and aggression. Patient family services was consulted during this admission. It was deemed necessary that the patient not go back home to current home environment. It was decided the patient will go with sister who lives nearby area. This will be helpful for patient to avoid current home life. Patient's condition improved. Electrolyte continue to improve. Patient did not have any signs or symptoms of withdrawal upon discharge. DISCHARGE MEDICATIONS: Please see below. ALLERGIES: Please see below. PHYSICAL EXAMINATION ON DISCHARGE: VITAL SIGNS: Please see below. GENERAL: Cooperative. Alert and comfortable. No acute distress. HEENT: No signs of injury. Extraocular muscles intact. No rhinorrhea. NECK: Supple. No masses. CARDIOVASCULAR EXAMINATION: Normal S1 and S2. No clicks rubs gallops or murmurs. RESPIRATORY EXAMINATION: Clear to auscultation bilaterally. No wheezing or rhonchi. ABDOMINAL EXAMINATION: Nondistended. Nontender. Bowel sounds on auscultation. EXTREMITIES: Radial pulses 2/4 bilaterally. No lower extremity edema. No tremulousness. SKIN: No new rashes or lesions. Some mild bruising arms bilaterally. NEUROLOGICAL EXAMINATION: Speech intact. PSYCHIATRIC EXAMINATION: Affect is appropriate. LABORATORY DATA: Please see below. IMAGING: Head CT showed per radiologist's report 1. Age-appropriate cerebellar and cerebral atrophy. 2. Mild chronic microvascular disease. 3. No evidence of acute intracranial pathology. Cervical spine CT showed per radiologist's report 1. No fracture. Grade 1 anterior spondylolisthesis of C3 on C4. 2. Straightening of cervical lordosis is seen, suggesting muscular spasm. 3. Multilevel spondylosis. Chest radiograph in the ER 01/13/2017 showed per radiologist's report no active disease. Chest radiograph 01/16/2017 showed per radiologist's report trace right basilar atelectasis. PROGNOSIS: Stable ACTIVITY: As tolerated. DIET: As tolerated. Avoid alcohol. DISCHARGE PLAN: Home. DISPOSITION: Patient is a 56-year-old female with past medical history significant for arthritis and alcohol abuse. Patient will be sent home to live with sister. Patient is advised to avoid alcohol use. Patient will be sent home with folic acid and thiamine to take daily. Patient is also sent home on a nicotine patch since she has been tolerating this while in the hospital. Finally patient will be sent home on Serax 10 mg with a maximum daily dose of 2 tablets a day, to continue to help with alcohol withdrawal. DISCHARGE INSTRUCTIONS: 1. Follow-up with primary care physician Dr. Bartholomew within 1 week 2. Avoid alcohol. 3. Continue folic acid and thiamine and nicotine patch daily. 4. Continue with prescription for Serax 10 mg Nexium daily dose 2 tablets a day. DISCHARGE CONDITION: Stable TIME SPENT ON DISCHARGE: Greater than 30 minutes. Vital Signs/I&Os Vital Signs Date Time Temp Pulse Resp B/P (MAP) Pulse Ox O2 Delivery O2 Flow Rate FiO2 01/20/17 07:17 93 Room Air 01/20/17 06:00 97.7 103 18 146/74 (98) 01/18/17 09:00 3.0 I&O- Last 24 Hours up to 6 AM 01/20/17 06:00 Intake Total 1430 ml Output Total 100 ml Balance 1330 ml Laboratory Data Labs 24H Laboratory Tests 2 01/20/17 05:46: White Blood Count 7.1, Red Blood Count 2.89L, Hemoglobin 9.2L, Hematocrit 28.4L , Mean Corpuscular Volume 98.2H, Mean Corpuscular Hemoglobin 31.7, Mean Corpuscular Hemoglobin Concent 32.2, Red Cell Distribution Width 20.7H, Platelet Count 290, Neutrophils (%) (Auto) 60.2, Lymphocytes (%) (Auto) 32.1, Monocytes (%) (Auto) 4.4, Eosinophils (%) (Auto) 0.6, Basophils (%) (Auto) 0.4, Neutrophils # (Auto) 4.3, Lymphocytes # (Auto) 2.4, Monocytes # (Auto) 0.3, Eosinophils # (Auto) 0.0, Basophils # (Auto) 0.0, Large Unclassified Cells % 2.3 , Large Unclassified Cells # 0.2, Anion Gap 8, Glomerular Filtration Rate > 60.0 , Blood Urea Nitrogen 11, Creatinine 0.63, Sodium Level 140, Potassium Level 4.0 #, Chloride Level 105, Carbon Dioxide Level 27, Calcium Level 8.8, Magnesium Level 1.9 CBC/BMP Laboratory Tests 6/24/17 05:46 Red Blood Count 2.89 L, Mean Corpuscular Volume 98.2 H, Mean Corpuscular Hemoglobin 31.7, Mean Corpuscular Hemoglobin Concent 32.2, Red Cell Distribution Width 20.7 H, Neutrophils (%) (Auto) 60.2, Lymphocytes (%) (Auto) 32.1, Monocytes (%) (Auto) 4.4, Eosinophils (%) (Auto) 0.6, Basophils (%) (Auto ) 0.4, Neutrophils # (Auto) 4.3, Lymphocytes # (Auto) 2.4, Monocytes # (Auto) 0.3, Eosinophils # (Auto) 0.0, Basophils # (Auto) 0.0, Calcium Level 8.8 Microbiology Microbiology 01/20/17 Stool Occult Blood (DAVIN) - Final, Complete Discharge Medications Scheduled Folic Acid (Folic Acid) 1 Mg Tab, 1 MG PO DAILY Nicotine (Nicotine Transdermal Syst) 21 Mg/24 Hr Dis, 1 PATCH TD DAILY Oxazepam (Oxazepam) 10 Mg Cap, 10 MG PO ASDIRECTED 1 tablet by mouth twice daily for 2 days 1 tablet by mouth daily for 3 days Thiamine Hcl (Thiamine Hcl) 100 Mg Tab, 100 MG PO DAILY Allergies Coded Allergies: No Known Drug Allergy (Verified Allergy, Unknown, 11/02/12) GME ATTESTATION GME ATTESTATION My preceptor for this patient encounter was Dr. Hilton and he was physically present in the building during the encounter and was fully available. As needed , all aspects of the patient interview, examination, medical decision making process, and medical care plan development were reviewed and approved by the preceptor. Preceptor is aware and concurs with the plan as stated in the body of this note and will attest to such by his/her cosignature. ANUJ NIX DO Jan 20, 2017 11:37
== END 2017-01-20 12:10 | disposition home health service (06) | DRG 641 ==
LOC: EDBD 17:28 → M ED 18:12 → M ED INP 23:43 → M PCU 01-14 01:00 → M MSPAV 01-17 15:06
PROVIDERS: ADMIT Internal Medicine; ATTEND Internal Medicine
PROC: 30253N1 (ICD-10-PCS; principal; 2017-01-13)
DX: E87.6 Hypokalemia (principal); E46 Unspecified protein-calorie malnutrition; F10.239 Alcohol dependence with withdrawal, unspecified; D64.9 Anemia, unspecified; F17.210 Nicotine dependence, cigarettes, uncomplicated; E87.1 Hypo-osmolality and hyponatremia; M19.90 Unspecified osteoarthritis, unspecified site; E83.42 Hypomagnesemia; I10 Essential (primary) hypertension; E83.39 Other disorders of phosphorus metabolism; R09.02 Hypoxemia; R11.2 Nausea with vomiting, unspecified; R19.7 Diarrhea, unspecified

== ENCOUNTER 2017-11-16 20:15 | Emergency (ER) | payer MEDICARE ==
[2017-11-16] MEDS: NS 1,000 ML IV ×2 (20:58→22:35)
[2017-11-16 20:59] LABS: HEMATOCRIT 36.6 % (36.0-47.0); HEMOGLOBIN 12.7 g/dl (12.0-15.5); MEAN CORPUSCULAR HEMOGLOBIN 30.9 pg (27.0-33.0); MEAN CORPUSCULAR HGB CONC 34.7 g/dl (32.0-36.5); MEAN CORPUSCULAR VOLUME 89.1 fl (80.0-96.0); PLATELET COUNT, AUTOMATED 369 10^3/uL (150-450); RED BLOOD COUNT 4.11 10^6/uL (4.00-5.40); RED CELL DISTRIBUTION WIDTH 14.1 % (11.5-14.5)
[2017-11-16 21:05] LABS: ADD MANUAL DIFFER YES; DIFF SLIDE NUMBER 334; POSITIVE DIFF POS FLAG; WHITE BLOOD COUNT 9.6 10^3/uL (4.0-10.0)
[2017-11-16] MEDS: LORazepam 2 MG/ML VIAL (J2060) IV (21:14)
[2017-11-16] MEDS ORDERED: LORazepam 2 MG/ML VIAL (J2060) As Ordered (21:15)
[2017-11-16 21:20] LABS: ANION GAP 12 MEQ/L (8-16); BLOOD UREA NITROGEN 30 MG/DL (7-18); CALCIUM LEVEL 8.2 MG/DL (8.5-10.1); CARBON DIOXIDE LEVEL 18 MEQ/L (21-32); CHLORIDE LEVEL 108 MEQ/L (98-107); CPK CREATINE PHOSPHOKINASE 145 U/L (26-192); CREATININE FOR GFR 1.46 MG/DL (0.55-1.30); ETHYL ALCOHOL (ETHANOL) 0.435 % (0.000-0.010); GLOMERULAR FILTRATION RATE 39.3 (>51); GLUCOSE, FASTING 93 MG/DL (70-100); MAGNESIUM LEVEL 2.8 MG/DL (1.8-2.4); SODIUM LEVEL 138 MEQ/L (136-145); TROPONIN I < 0.02 NG/ML (< 0.10)
[2017-11-16 21:25] LABS: CK-MB VALUE MASS 4.8 NG/ML (<3.6); MB/CK RELATIVE INDEX 3.31 (< OR =4)
[2017-11-16 21:30] LABS: INR 1.04; PROTHROMBIN TIME 13.7 SECONDS (12.4-14.5)
[2017-11-16 21:31] LABS: PARTIAL THROMBOPLASTIN TIME 30.2 SECONDS (26.8-37.9)
[2017-11-16 21:46] LABS: ATYPICAL LYMPH 10 % (0-5); LYMPHOCYTES 53 % (16-52); MONOCYTES 4 % (0-8); NEUTROPHILS 33 % (35-75); PLATELET ESTIMATE NORMAL (NORMAL)
== END 2017-11-17 05:33 | disposition home or self-care (01) ==
LOC: M ED 11-17 05:33
DX: F10.229 Alcohol dependence with intoxication, unspecified (principal); F17.200 Nicotine dependence, unspecified, uncomplicated
CPT/HCPCS: J2060

== ENCOUNTER 2018-01-29 02:13 | Emergency (ER) | payer MEDICARE ==
[2018-01-29] MEDS ORDERED: ONDANSETRON 4MG/2ML VIAL (J2405) As Ordered (02:30)
[2018-01-29] MEDS: NS 1,000 ML IV (02:37)
[2018-01-29] MEDS: ONDANSETRON 4MG/2ML VIAL (J2405) IV (02:37)
[2018-01-29 03:26] LABS: HEMATOCRIT 29.3 % (36.0-47.0); HEMOGLOBIN 10.1 g/dl (12.0-15.5); MEAN CORPUSCULAR HEMOGLOBIN 32.1 pg (27.0-33.0); MEAN CORPUSCULAR HGB CONC 34.5 g/dl (32.0-36.5); PLATELET COUNT, AUTOMATED 348 10^3/uL (150-450); RED BLOOD COUNT 3.15 10^6/uL (4.00-5.40); WHITE BLOOD COUNT 9.3 10^3/uL (4.0-10.0)
[2018-01-29 03:40] LABS: ACETAMINOPHEN LEVEL < 2.0 UG/ML (10.0-30.0); ALBUMIN 2.6 GM/DL (3.2-5.2); ALKALINE PHOSPHATASE 75 U/L (45-117); ALT/SGPT 23 U/L (12-78); ANION GAP 15 MEQ/L (8-16); AST/SGOT 27 U/L (7-37); BILIRUBIN,DIRECT < 0.1 MG/DL (0.0-0.2); BILIRUBIN,TOTAL 0.2 MG/DL (0.2-1.0); BLOOD UREA NITROGEN 40 MG/DL (7-18); CALCIUM LEVEL 7.5 MG/DL (8.5-10.1); CARBON DIOXIDE LEVEL 19 MEQ/L (21-32); CHLORIDE LEVEL 113 MEQ/L (98-107); CREATININE FOR GFR 1.19 MG/DL (0.55-1.30); ETHYL ALCOHOL (ETHANOL) 0.256 % (0.000-0.010); GLOMERULAR FILTRATION RATE 49.6 (>51); GLUCOSE, FASTING 92 MG/DL (70-100); SALICYLATE LEVEL 9.6 MG/DL (5.0-30.0); SODIUM LEVEL 147 MEQ/L (136-145); TOTAL PROTEIN 5.5 GM/DL (6.4-8.2)
[2018-01-29] MEDS: MULTIVITAMIN -ADULT INJECTION 10 ML, THIAMINE INJection 100 MG, FOLIC ACID 1 MG in NS 1... IV (03:45)
== END 2018-01-29 08:08 | disposition home or self-care (01) ==
LOC: M ED 02:13
DX: F10.220 Alcohol dependence with intoxication, uncomplicated (principal)
CPT/HCPCS: J2405

== ENCOUNTER 2018-03-12 18:25 | Emergency (ER) | payer MEDICARE ==
[2018-03-12 19:03] LABS: HEMATOCRIT 33.9 % (36.0-47.0); HEMOGLOBIN 11.4 g/dl (12.0-15.5); MEAN CORPUSCULAR HEMOGLOBIN 32.2 pg (27.0-33.0); MEAN CORPUSCULAR HGB CONC 33.6 g/dl (32.0-36.5); MEAN CORPUSCULAR VOLUME 95.8 fl (80.0-96.0); PLATELET COUNT, AUTOMATED 272 10^3/uL (150-450); RED BLOOD COUNT 3.54 10^6/uL (4.00-5.40)
[2018-03-12 19:10] LABS: ADD MANUAL DIFFER YES; DIFF SLIDE NUMBER 368; POSITIVE DIFF POS FLAG; WHITE BLOOD COUNT 11.1 10^3/uL (4.0-10.0)
[2018-03-12 19:21] LABS: ALBUMIN 2.9 GM/DL (3.2-5.2); ALBUMIN/GLOBULIN RATIO 0.73 (1.00-1.93); ALKALINE PHOSPHATASE 70 U/L (45-117); ALT/SGPT 13 U/L (12-78); ANION GAP 7 MEQ/L (8-16); AST/SGOT 20 U/L (7-37); BILIRUBIN,DIRECT < 0.1 MG/DL (0.0-0.2); BILIRUBIN,TOTAL 0.2 MG/DL (0.2-1.0); BLOOD UREA NITROGEN 44 MG/DL (7-18); CALCIUM LEVEL 8.7 MG/DL (8.5-10.1); CARBON DIOXIDE LEVEL 21 MEQ/L (21-32); CHLORIDE LEVEL 115 MEQ/L (98-107); CREATININE FOR GFR 1.21 MG/DL (0.55-1.30); GLOMERULAR FILTRATION RATE 48.7 (>51); GLUCOSE, FASTING 90 MG/DL (70-100); LIPASE 357 U/L (73-393); POTASSIUM SERUM 4.5 MEQ/L (3.5-5.1); SODIUM LEVEL 143 MEQ/L (136-145); TOTAL PROTEIN 6.9 GM/DL (6.4-8.2)
[2018-03-12] MEDS: PANTOPRAZOLE 40MG INJ (PROTONIX) (C9113) IV (19:30)
[2018-03-12 19:42] LABS: CK-MB VALUE MASS 1.1 NG/ML (<3.6); CPK CREATINE PHOSPHOKINASE 67 U/L (26-192); MB/CK RELATIVE INDEX 1.64 (< OR =4); TROPONIN I < 0.02 NG/ML (< 0.10)
[2018-03-12 19:47] LABS: ATYPICAL LYMPH 7 % (0-5); EOSINOPHILS 6 % (0-5); HYPOCHROMASIA 1+; LYMPHOCYTES 53 % (16-52); MONOCYTES 4 % (0-8); NEUTROPHILS 30 % (35-75); PLATELET ESTIMATE NORMAL (NORMAL)
[2018-03-12] MEDS: GASTROGRAFIN SOLUTION 30ML (Q9963) PO ×9 (20:29→23:54)
[2018-03-12] MEDS ORDERED: ISOVUE-370 76% 100ML VIAL (Q9967) As Ordered (22:28)
== END 2018-03-13 00:29 | disposition home or self-care (01) ==
LOC: M ED 03-13 00:29
DX: K29.20 Alcoholic gastritis without bleeding (principal); F10.129 Alcohol abuse with intoxication, unspecified; I10 Essential (primary) hypertension; M19.90 Unspecified osteoarthritis, unspecified site; Z79.899 Other long term (current) drug therapy; F17.210 Nicotine dependence, cigarettes, uncomplicated
CPT/HCPCS: C9113

== ENCOUNTER → 2018-04-18 | Outpatient (REF) | payer MEDICARE ==
[2018-04-19 14:24] LABS: FERRITIN 72 NG/ML (8-252); IRON (FE) 71 UG/DL (50-170); PERCENT SATURATION 24.8 % (13.2-45.0); TOTAL IRON BINDING CAPACITY 286 UG/DL (250-450)
== END ==
LOC: M LAB REF 12:36
DX: D50.9 Iron deficiency anemia, unspecified (principal); F10.99 Alcohol use, unspecified with unspecified alcohol-induced disorder
CPT/HCPCS: 83550

== ENCOUNTER → 2018-05-15 | Outpatient (REF) | payer MEDICARE ==
[2018-05-16 14:09] LABS: FERRITIN 62 NG/ML (8-252); IRON (FE) 80 UG/DL (50-170); TOTAL IRON BINDING CAPACITY 308 UG/DL (250-450)
[2018-05-16 14:16] LABS: FOLATE 19.1 NG/ML
== END ==
LOC: M LAB REF 12:35
DX: D64.9 Anemia, unspecified (principal)
CPT/HCPCS: 82746

== ENCOUNTER → 2018-05-29 | Outpatient (REF) | payer MEDICARE ==
[2018-05-30 13:50] LABS: C REACTIVE PROTEIN QUANTITATIV 1.56 MG/DL (0.00-0.30)
== END ==
LOC: M LAB REF 12:08
DX: N18.3 Chronic kidney disease, stage 3 (moderate) (principal)
CPT/HCPCS: 86140

== ENCOUNTER → 2018-05-30 | Outpatient (REF) | payer MEDICARE ==
[2018-05-30 13:32] LABS: AMYLASE 91 U/L (25-115)
[2018-05-30 13:32] LABS: LIPASE 273 U/L (73-393)
[2018-05-30 13:49] LABS: OSMOLALITY URINE 367 MOSM/KG (500-800)
[2018-05-30 13:57] LABS: SODIUM,RANDOM URINE 14 MEQ/L; TOTAL PROTEIN,RANDOM URINE 2122.3 MG/DL (0.0-12.0)
== END ==
LOC: M LAB REF 11:48
DX: I12.9 Hypertensive chronic kidney disease with stage 1 through stage 4 chronic kidney disease, or unspecified chronic kidney disease (principal); M54.5 Low back pain; N18.3 Chronic kidney disease, stage 3 (moderate)
CPT/HCPCS: 82150

== ENCOUNTER → 2018-06-05 | Outpatient (REF) | payer MEDICARE ==
[2018-06-05 12:57] LABS: TOTAL PROTEIN 5.7 GM/DL (6.4-8.2)
[2018-06-05 12:59] LABS: AMORPHOUS SEDIMENT MODERATE (NEGATIVE); BACTERIA, URINE AUTO 1+ (NEGATIVE); GRANULAR CAST, URINE AUTO 5 /LPF; MUCUS, URINE SMALL (NEGATIVE); RBC, URINE AUTO 35 /HPF (0-3); SQUAMOUS EPITHELIAL CELL UR AU 3 /HPF (0-6); WBC, URINE AUTO 4 /HPF (0-3)
[2018-06-05 13:12] LABS: HEPATITIS B SURFACE ANTIGEN NEGATIVE (NEGATIVE)
[2018-06-05 13:39] LABS: HEPATITIS C VIRUS ABY INDEX < 0.0 INDEX (<0.8)
[2018-06-05 13:40] LABS: HEPATITIS B CORE ANTIBODY IGM NEGATIVE (NEGATIVE)
[2018-06-05 13:42] LABS: HEPATITIS A ANTIBODY IGM NEGATIVE (NEGATIVE)
[2018-06-06 11:44] LABS: ALBUMIN 3.04 GM/DL (3.29-5.55); ALBUMIN % 53.3 % (55.8-66.1); ALPHA-1-GLOBULIN % 7.7 % (2.9-4.9); ALPHA-1-GLOBULINS 0.44 GM/DL (0.17-0.41); ALPHA-2-GLOBULINS 0.99 GM/DL (0.42-0.99); ALPHA-2-GLOBULINS % 17.3 % (7.1-11.8); BETA-1-GLOBULINS % 7.1 % (4.7-7.2); BETA-2-GLOBULINS % 5.3 % (3.2-6.5)
[2018-06-06 11:45] LABS: GAMMA GLOBULIN % 9.3 % (11.1-18.8); GAMMA GLOBULINS 0.53 GM/DL (0.65-1.58)
[2018-06-06 14:50] LABS: ANTINUCLEAR ANTIBODIES DIRECT Negative (Negative)
== END ==
LOC: M LAB REF 12:12
DX: N18.3 Chronic kidney disease, stage 3 (moderate) (principal); R80.9 Proteinuria, unspecified
CPT/HCPCS: 84165

== ENCOUNTER → 2018-06-10 | Outpatient (REF) | payer MEDICARE ==
[2018-06-10 19:16] LABS: INR 1.01; PROTHROMBIN TIME 13.4 SECONDS (12.1-14.4)
[2018-06-10 19:25] LABS: AMORPHOUS SEDIMENT MODERATE (NEGATIVE); BACTERIA, URINE AUTO NEGATIVE (NEGATIVE); MUCUS, URINE SMALL (NEGATIVE); RBC, URINE AUTO 32 /HPF (0-3); SQUAMOUS EPITHELIAL CELL UR AU 4 /HPF (0-6); WBC, URINE AUTO 9 /HPF (0-3)
[2018-06-10 19:29] LABS: COMPLEMENT C3 126 MG/DL (90-180)
[2018-06-10 19:29] LABS: TOTAL PROTEIN 6.3 GM/DL (6.4-8.2)
[2018-06-10 19:48] LABS: URINE TOTAL PROTEIN 3898.2 MG/DL (0-12)
[2018-06-10 20:31] LABS: TOTAL PROTEIN,RANDOM URINE 3898.2 MG/DL (0.0-12.0)
[2018-06-11 10:04] LABS: ALBUMIN 3.37 GM/DL (3.29-5.55); ALBUMIN % 53.5 % (55.8-66.1); ALPHA-1-GLOBULIN % 7.3 % (2.9-4.9); ALPHA-1-GLOBULINS 0.46 GM/DL (0.17-0.41); ALPHA-2-GLOBULINS 1.12 GM/DL (0.42-0.99); ALPHA-2-GLOBULINS % 17.7 % (7.1-11.8); BETA-1-GLOBULINS 0.44 GM/DL (0.28-0.60); BETA-2-GLOBULINS 0.35 GM/DL (0.19-0.55); BETA-2-GLOBULINS % 5.5 % (3.2-6.5); GAMMA GLOBULINS 0.57 GM/DL (0.65-1.58)
[2018-06-13 15:21] LABS: UPEP INTERPRETATION NO M-SPIKE NOTED; URINE VOLUME RANDOM ML
[2018-06-14 00:56] LABS: ANCA-ATYPICAL <1:20 titer (Neg:<1:20); ANTI DOUBLE STRAND-DNA AB <1 IU/mL (0-9); ANTI-GLOMERULAR BASEMENT MEMB 3 units (0-20); ANTINUCLEAR ANTIBODIES DIRECT Negative (Negative); CYTOPLASMIC NEUTROP AB ANCA-C <1:20 titer (Neg:<1:20); FREE KAPPA LIGHT CHAINS SERUM 82.8 mg/L (3.3-19.4); FREE LAMBDA LIGHT CHAINS SERUM 46.8 mg/L (5.7-26.3); KAPPA/LAMBDA RATIO SERUM 1.77 (0.26-1.65); PERINUCLEAR AB ANCA-P <1:20 titer (Neg:<1:20)
== END ==
LOC: M LAB REF 17:43
DX: Z01.812 Encounter for preprocedural laboratory examination (principal); N17.9 Acute kidney failure, unspecified; R80.9 Proteinuria, unspecified; R31.29 Other microscopic hematuria
CPT/HCPCS: 84165

== ENCOUNTER → 2018-06-11 | Outpatient (REF) | payer MEDICARE ==
[2018-06-12 14:40] LABS: CREATININE 24 HOUR, URINE 762.9 MG/24HR (600-1800); CREATININE, URINE 44.1 MG/DL; TOTAL PROTEIN 24 HOUR URINE 11668.8 MG/24HR (50-150); TOTAL VOLUME, URINE 1730 ML; URINE TOTAL PROTEIN 674.5 MG/DL (0-12)
== END ==
LOC: M LAB REF 13:29
DX: R80.9 Proteinuria, unspecified (principal); R31.29 Other microscopic hematuria
CPT/HCPCS: 81050

== ENCOUNTER → 2018-06-12 | Outpatient (REF) | payer MEDICARE ==
[2018-06-12 13:52] LABS: PARTIAL THROMBOPLASTIN TIME 32.3 SECONDS (25.4-37.6)
[2018-06-12 14:07] LABS: COLLAGEN EPINEPHRINE 98 SECONDS (74-162)
[2018-06-18 10:07] LABS: DRVV SCREEN 40.3 SEC
== END ==
LOC: M LAB REF 13:24
DX: R80.9 Proteinuria, unspecified (principal); R31.29 Other microscopic hematuria; Z01.818 Encounter for other preprocedural examination; D64.9 Anemia, unspecified
CPT/HCPCS: 85730

== ENCOUNTER → 2018-06-17 | Outpatient (CLI) | payer MEDICARE, MEDICAID ==
[~2018-06-17] MED LIST: LIDOCAINE 1% MDV 20ML VIAL As Ordered
== END ==
LOC: M RADPRO 10:57
DX: D80.8 Other immunodeficiencies with predominantly antibody defects (principal); N17.9 Acute kidney failure, unspecified; R80.9 Proteinuria, unspecified; R31.29 Other microscopic hematuria; E83.39 Other disorders of phosphorus metabolism; E83.41 Hypermagnesemia; I10 Essential (primary) hypertension; M19.90 Unspecified osteoarthritis, unspecified site; D64.9 Anemia, unspecified; F17.200 Nicotine dependence, unspecified, uncomplicated; F10.10 Alcohol abuse, uncomplicated; F41.9 Anxiety disorder, unspecified; Z82.49 Family history of ischemic heart disease and other diseases of the circulatory system; Z83.3 Family history of diabetes mellitus; Z79.52 Long term (current) use of systemic steroids; Z79.899 Other long term (current) drug therapy
CPT/HCPCS: 50200

== ENCOUNTER → 2018-07-09 | Outpatient (REF) | payer MEDICARE, MEDICAID ==
[2018-07-09 14:24] LABS: TOTAL VOLUME, URINE 800 ML
[2018-07-09 14:25] LABS: CREATININE, URINE 78.5 MG/DL; TOTAL PROTEIN 24 HOUR URINE 9358.4 MG/24HR (50-150); URINE TOTAL PROTEIN 1169.8 MG/DL (0-12)
[2018-07-09 19:36] LABS: TOTAL PROTEIN 5.2 GM/DL (6.4-8.2)
[2018-07-11 11:05] LABS: ALBUMIN % 59.7 % (55.8-66.1); ALPHA-1-GLOBULIN % 6.5 % (2.9-4.9); ALPHA-1-GLOBULINS 0.34 GM/DL (0.17-0.41); ALPHA-2-GLOBULINS 0.93 GM/DL (0.42-0.99); ALPHA-2-GLOBULINS % 17.8 % (7.1-11.8); BETA-1-GLOBULINS 0.31 GM/DL (0.28-0.60); BETA-2-GLOBULINS 0.24 GM/DL (0.19-0.55); BETA-2-GLOBULINS % 4.7 % (3.2-6.5); GAMMA GLOBULIN % 5.3 % (11.1-18.8); GAMMA GLOBULINS 0.28 GM/DL (0.65-1.58)
[2018-07-11 11:19] LABS: IMMUNOTYPING SERUM IGG ABNORMAL (NORMAL); IMMUNOTYPING SERUM KAPPA ABNORMAL (NORMAL)
[2018-07-11 14:17] LABS: UPEP INTERPRETATION NO M-SPIKE NOTED; URINE VOLUME RANDOM ML
[2018-07-12 00:06] LABS: FREE KAPPA LIGHT CHAINS SERUM 29.4 mg/L (3.3-19.4); FREE LAMBDA LIGHT CHAINS SERUM 20.2 mg/L (5.7-26.3); KAPPA/LAMBDA RATIO SERUM 1.46 (0.26-1.65)
== END ==
LOC: M LAB REF 13:17
DX: N04.8 Nephrotic syndrome with other morphologic changes (principal)
CPT/HCPCS: 84165

== ENCOUNTER → 2018-08-01 | Outpatient (REF) | payer MEDICARE, MEDICAID ==
[~2018-08-01] MED LIST changes: +ACET-683 PO; +AMLO10TA5 PO; +ASPI1TAB PO; +FOLI1TAB11 PO; +FOLI800C PO; -LIDOCAINE 1% MDV 20ML VIAL As Ordered; +LISI10TA4; +LISI20TA3 PO; +MAG-84TA PO; +MAGN250T11 PO; +MULTTAB57 PO; +NICO21PAT TD; +OMEP40CA2 PO; +OXAZ10CA3 PO; +PRED20TA PO; +PRED5PAK2 PO; +PROT1TAB2 PO; +SUCR1SS PO; +THIA100TA PO
[2018-08-01 15:11] LABS: CHOLESTEROL RISK RATIO 11.729 (<5)
== END ==
LOC: M LAB REF 13:53
PROVIDERS: ATTEND Internal Medicine Nephrology
DX: R80.9 Proteinuria, unspecified (principal); E78.5 Hyperlipidemia, unspecified

== ENCOUNTER → 2018-08-07 | Outpatient (REF) | payer MEDICARE, MEDICAID ==
[2018-08-07 14:08] LABS: CREATININE 24 HOUR, URINE 727.2 MG/24HR (600-1800); CREATININE, URINE 49.2 MG/DL; TOTAL PROTEIN 24 HOUR URINE 10022.3 MG/24HR (50-150); URINE TOTAL PROTEIN 678.1 MG/DL (0-12)
== END ==
LOC: M LAB REF 12:52
PROVIDERS: ATTEND Internal Medicine Nephrology
DX: R80.9 Proteinuria, unspecified (principal); D47.2 Monoclonal gammopathy

== ENCOUNTER → 2018-09-02 | Outpatient (REF) | payer MEDICARE ==
[~2018-09-02] MED LIST changes: +ATOR40TA75 PO; +CALCD50TA; +ELIQ2.5T PO; +MAG-TAB PO; +POTA1TAB14 PO
[2018-09-02 14:18] LABS: PERCENT SATURATION 30.1 % (13.2-45.0)
== END ==
LOC: M LAB REF 13:04
PROVIDERS: ATTEND Internal Medicine Nephrology
DX: N04.8 Nephrotic syndrome with other morphologic changes (principal); D64.9 Anemia, unspecified

== ENCOUNTER → 2018-09-16 | Outpatient (REF) | payer MEDICARE, MEDICAID ==
[2018-09-16 13:38] LABS: POTASSIUM RANDOM URINE 44.2 MEQ/L
== END ==
LOC: M LAB REF 13:06
PROVIDERS: ATTEND Internal Medicine Nephrology
DX: N25.89 Other disorders resulting from impaired renal tubular function (principal)

== ENCOUNTER → 2018-09-24 | Outpatient (CLI) | payer MEDICARE, MEDICAID ==
--- NOTE | 2018-09-24 18:39 | REP ---
PET/CT: History: Diagnosing multiple myeloma. Comparisons: Comparison bone survey July 26, 2018 TECHNIQUE: 57 minutes following the intravenous injection of a 8.2 mCi dose of F-18 FDG, three-dimensional PET scintigraphy is acquired from the skull base to the proximal thighs. Triplanar noncontrast CT scanning is acquired through the same anatomic range for attenuation correction, and image registration with scan parameters optimized to minimize radiation exposure to the patient. PET scintigraphy and CT datasets were fused and displayed on a workstation with multiplanar and projection display capability. PET/CT Findings: Head and neck soft tissues are unremarkable. No abnormal hypermetabolic uptake is seen within the thorax. In the abdomen and pelvis normal distribution of FDG accumulation is seen. No abnormal hypermetabolic uptake is seen in the abdomen or pelvis. There is no abnormal skeletal hypermetabolic uptake seen. Impression: Negative PET scintigraphy. Electronically Signed by Moose Lowry MD 09/24/2018 07:32 P
== END ==
LOC: M PLARAD 11:12
PROVIDERS: ATTEND Internal Medicine Medical Oncology
DX: C90.00 Multiple myeloma not having achieved remission (principal)
CPT/HCPCS: 78815; A9552

== ENCOUNTER 2018-10-17 10:53 | Outpatient (CLI) | payer MEDICARE, MEDICAID ==
[2018-10-17] VITALS (7 sets, daily range): BP systolic 145–180; BP diastolic 65–80
[~2018-10-17] VITALS: Ht 154.9 cm; Wt 47.6 kg
[2018-10-17] MEDS ORDERED: ACETAMINOPHEN 325 MG TAB PO ONE (11:30)
== END 2018-10-17 17:30 | disposition home or self-care (01) ==
LOC: M INFU 10:53
PROVIDERS: ATTEND Internal Medicine Nephrology
DX: N18.9 Chronic kidney disease, unspecified (principal); D63.1 Anemia in chronic kidney disease
CPT/HCPCS: 36415; 36430; 86850; 86900; 86901; 86920; P9016

== ENCOUNTER → 2018-10-20 | Outpatient (REF) | payer MEDICARE, MEDICAID | LOC: M LAB REF 12:53 | PROVIDERS: ATTEND Internal Medicine Nephrology | DX: D64.9 Anemia, unspecified (principal) ==

== ENCOUNTER → 2018-11-26 | Outpatient (REF) | payer MEDICARE, MEDICAID ==
[~2018-11-26] MED LIST changes: -ASPI1TAB PO; +ASPI81TA26 PO
[2018-11-26 14:35] LABS: CREATININE 24 HOUR, URINE 760.5 MG/24HR (600-1800); CREATININE, URINE 38.8 MG/DL; TOTAL PROTEIN 24 HOUR URINE 5507.6 MG/24HR (50-150)
== END ==
LOC: M LAB REF 13:16
PROVIDERS: ATTEND Internal Medicine Nephrology
DX: D47.2 Monoclonal gammopathy (principal); N04.8 Nephrotic syndrome with other morphologic changes

== ENCOUNTER → 2018-12-26 | Outpatient (REF) | payer MEDICARE, MEDICAID ==
[2018-12-26 14:37] LABS: CHOLESTEROL RISK RATIO 2.947 (<5)
== END ==
LOC: M LAB REF 12:48
PROVIDERS: ATTEND Internal Medicine Nephrology
DX: E78.5 Hyperlipidemia, unspecified (principal); N04.8 Nephrotic syndrome with other morphologic changes

== ENCOUNTER → 2019-03-20 | Outpatient (REF) | payer MEDICARE, MEDICAID ==
[~2019-03-20] MED LIST changes: +LISI20TA20 PO; -LISI20TA3 PO; -OMEP40CA2 PO; +OMEP40CA97 PO
[2019-03-20 14:29] LABS: CHOLESTEROL RISK RATIO 2.652 (<5); FREE T4 1.05 NG/DL (0.76-1.46); THYROID STIMULATING HORMONE 1.21 uIU/ML (0.358-3.740)
== END ==
LOC: M LAB REF 13:24
PROVIDERS: ATTEND Internal Medicine Nephrology
DX: N04.8 Nephrotic syndrome with other morphologic changes (principal); E78.5 Hyperlipidemia, unspecified

== ENCOUNTER → 2019-08-11 | Outpatient (REF) | payer MEDICARE, MEDICAID ==
[2019-08-11 14:48] LABS: CREATININE, URINE 56.2 MG/DL; URINE TOTAL PROTEIN 120.6 MG/DL (0-12)
[2019-08-11 15:49] LABS: CREATININE 24 HOUR, URINE 747.4 MG/24HR (600-1800); TOTAL PROTEIN 24 HOUR URINE 1603.9 MG/24HR (50-150)
== END ==
LOC: M LAB REF 12:55
PROVIDERS: ATTEND Internal Medicine Nephrology
DX: N04.8 Nephrotic syndrome with other morphologic changes (principal)

== ENCOUNTER → 2019-08-11 | Outpatient (REF) | payer MEDICARE, MEDICAID ==
[2019-08-11 15:04] LABS: CHOLESTEROL RISK RATIO 3.393 (<5); FREE T4 0.92 NG/DL (0.76-1.46); THYROID STIMULATING HORMONE 1.76 uIU/ML (0.358-3.740)
== END ==
LOC: M LAB REF 13:57
PROVIDERS: ATTEND Internal Medicine Nephrology
DX: N04.8 Nephrotic syndrome with other morphologic changes (principal); E78.5 Hyperlipidemia, unspecified

== ENCOUNTER → 2019-10-16 | Outpatient (REF) | payer MEDICARE, MEDICAID ==
[2019-10-16 14:28] LABS: ALBUMIN 3.5 GM/DL (3.2-5.2); ALT/SGPT 15 U/L (12-78); BILIRUBIN,DIRECT < 0.1 MG/DL (0.0-0.2); BILIRUBIN,TOTAL 0.2 MG/DL (0.2-1.0); TOTAL PROTEIN 6.8 GM/DL (6.4-8.2)
== END ==
LOC: M LAB REF 13:25
PROVIDERS: ATTEND Nurse Practitioner Family
DX: E78.5 Hyperlipidemia, unspecified (principal); F10.10 Alcohol abuse, uncomplicated; N18.3 Chronic kidney disease, stage 3 (moderate)

== ENCOUNTER → 2020-02-06 | Outpatient (CLI) | payer MEDICARE, MEDICAID ==
[~2020-02-06] MED LIST changes: -AMLO10TA5 PO; +AMLO1TAB25 PO; +CARV3.12; +ESCI10TA2; +HYDR-3363; +HYDR12.55; +LISI-542; +LISI2.5T2; +MYCO500T; +ONDA-83; +TRAZ-257; +VELT1POW
--- NOTE | 2020-02-06 09:53 | REP ---
RENAL ULTRASOUND: Real-time sonographic evaluation of the kidneys is performed. The kidneys are somewhat hyperechoic in echotexture suggesting medical renal disease. Right kidney measures 9.1 x 4.3 x 3.6 and left kidney 8.8 x 4.1 x 4.8 cm. Resistive index right kidney with duplex Doppler evaluation 0.61, left kidney 0.57. A cyst in the mid left kidney measures 9 mm in diameter. No other renal abnormality is seen. IMPRESSION: Slightly small size of the kidneys with hyperechoic echotexture suggesting medical renal disease. No hydronephrosis bilaterally.
== END ==
LOC: M WHC 07:14
PROVIDERS: ATTEND Nurse Practitioner Family
DX: N17.9 Acute kidney failure, unspecified (principal)

== ENCOUNTER → 2020-02-26 | Outpatient (CLI) | payer MEDICARE, MEDICAID ==
--- NOTE | 2020-04-19 09:31 | REP ---
LOW DOSE LUNG SCREENING CHEST CT: TECHNIQUE: The study is performed without IV contrast. Images are presented at lung windowing only. COMPARISON: Chest CT without IV contrast dated 09/18/12. FINDINGS: There are no lung masses or nodules. There are no infiltrates. There are no pleural effusions. There are scattered small bullae predominantly in the upper lobes bilaterally. There are old nonunited fractures posterolaterally in the left 10th rib and right 9th rib. These are unchanged. IMPRESSION: The study is a category [address] dose lung screening CT of the chest. Probably of malignancy is less than 1%. Depending on risk factors, continued annual screening low dose lung CT might be considered for follow up. MTDD
== END ==
LOC: M RAD 10:30
PROVIDERS: ATTEND Internal Medicine
DX: Z12.2 Encounter for screening for malignant neoplasm of respiratory organs (principal); F17.219 Nicotine dependence, cigarettes, with unspecified nicotine-induced disorders

== ENCOUNTER → 2020-05-14 | Outpatient (CLI) | payer MEDICARE, MEDICAID | LOC: M LABSMTC 11:26 | PROVIDERS: ATTEND Anesthesiology | DX: Z01.812 Encounter for preprocedural laboratory examination (principal); Z20.828 Contact with and (suspected) exposure to other viral communicable diseases | CPT/HCPCS: C9803; U0003 ==

== ENCOUNTER 2020-05-19 08:28 | Day surgery (SDC) | payer MEDICARE, MEDICAID ==
[~2020-05-19] VITALS: Ht 154.9 cm; Wt 47.6 kg
[~2020-05-19 08:28] MED LIST changes: +NS 1,000 ML IV ONE
[2020-05-19] MEDS ORDERED: propofoL 200 MG/20 ML VIAL As Ordered ONE (10:48)
[2020-05-19] MEDS ORDERED: PHENYLephrine HCL 500 MCG/5 ML (100MCG/ML) SYRINGE (J2370) As Ordered ONE (10:48)
[2020-05-19] MEDS ORDERED: LIDOCAINE 2% 100MG/5ML SDV (FOR ANES.) As Ordered ONE (10:48)
--- NOTE | 2020-05-19 10:48 | ROOR ---
Patient Name: Mora Munoz Procedure Date: 05/19/2020 9:46 AM Date of : 1960 Age: 59 Room: [facility] Gender: Female Note Status: Finalized Procedure: Upper GI endoscopy Indications: Heartburn, Nausea with vomiting Providers: Joseluis Cook MD Referring MD: Mora MILLS MD Requesting Provider: Medicines: Monitored Anesthesia Care Complications: No immediate complications. Procedure: Pre-Anesthesia Assessment: - Prior to the procedure, a History and Physical was performed, and patient medications and allergies were reviewed. The patient is competent. The risks and benefits of the procedure and the sedation options and risks were discussed with the patient. All questions were answered and informed consent was obtained. Patient identification and proposed procedure were verified by the physician, the nurse and the waste disposal plant operator in the procedure room. Mental Status Examination: alert and oriented. Airway Examination: normal oropharyngeal airway and neck mobility. Respiratory Examination: clear to auscultation. CV Examination: normal. Prophylactic Antibiotics: The patient does not require prophylactic antibiotics. Prior Anticoagulants: The patient has taken no previous anticoagulant or antiplatelet agents except for aspirin. ASA Grade Assessment: III - A patient with severe systemic disease. After reviewing the risks and benefits, the patient was deemed in satisfactory condition to undergo the procedure. The anesthesia plan was to use monitored anesthesia care (MAC). Immediately prior to administration of medications, the patient was re-assessed for adequacy to receive sedatives. The heart rate, respiratory rate, oxygen saturations, blood pressure, adequacy of pulmonary ventilation, and response to care were monitored throughout the procedure. The physical status of the patient was re-assessed after the procedure. The Endoscope was introduced through the mouth, and advanced to the third part of duodenum. The upper GI endoscopy was accomplished without difficulty. The patient tolerated the procedure well. Findings: Localized, white plaques were found in the middle third of the esophagus. Biopsies were taken with a cold forceps for histology. Estimated blood loss was minimal. The Z-line was regular and was found 36 cm from the incisors. A small hiatal hernia was present. Striped mildly erythematous mucosa without bleeding was found in the gastric antrum. This was biopsied with a cold forceps for Helicobacter pylori testing. Estimated blood loss was minimal. The duodenal bulb, first portion of the duodenum and second portion of the duodenum were normal. Impression: - Esophageal plaques were found, suspicious for candidiasis. Biopsied. - Z-line regular, 36 cm from the incisors. - Small hiatal hernia. - Erythematous mucosa in the antrum. Biopsied. - Normal duodenal bulb, first portion of the duodenum and second portion of the duodenum. Recommendation: - Discharge patient to home (ambulatory). - Await pathology results. - Continue present medications. - Telephone my office for pathology results in 1 week. Joseluis Cook MD Joseluis Cook MD 05/19/2020 10:48:00 AM Electronically signed by Joseluis Cook MD Number of Addenda: 0 Note Initiated On: 05/19/2020 9:46 AM Estimated Blood Loss: Estimated blood loss was minimal.
--- NOTE | 2020-05-19 10:54 | ROOR ---
Patient Name: Mora Munoz Procedure Date: 05/19/2020 9:46 AM Date of : 1960 Age: 59 Room: [facility] Gender: Female Note Status: Finalized Procedure: Colonoscopy Indications: High risk colon cancer surveillance: Personal history of colonic polyps Providers: Joseluis Cook MD Referring MD: Mora MILLS MD Requesting Provider: Medicines: Monitored Anesthesia Care Complications: No immediate complications. Procedure: Pre-Anesthesia Assessment: - Prior to the procedure, a History and Physical was performed, and patient medications and allergies were reviewed. The patient is competent. The risks and benefits of the procedure and the sedation options and risks were discussed with the patient. All questions were answered and informed consent was obtained. Patient identification and proposed procedure were verified by the physician, the nurse and the anesthesiologist in the endoscopy suite. Mental Status Examination: alert and oriented. Airway Examination: normal oropharyngeal airway and neck mobility. Respiratory Examination: clear to auscultation. CV Examination: normal. Prophylactic Antibiotics: The patient does not require prophylactic antibiotics. Prior Anticoagulants: The patient has taken no previous anticoagulant or antiplatelet agents except for aspirin. ASA Grade Assessment: III - A patient with severe systemic disease. After reviewing the risks and benefits, the patient was deemed in satisfactory condition to undergo the procedure. The anesthesia plan was to use monitored anesthesia care (MAC). Immediately prior to administration of medications, the patient was re-assessed for adequacy to receive sedatives. The heart rate, respiratory rate, oxygen saturations, blood pressure, adequacy of pulmonary ventilation, and response to care were monitored throughout the procedure. The physical status of the patient was re-assessed after the procedure. The Colonoscope was introduced through the anus and advanced to the cecum, identified by appendiceal orifice and ileocecal valve. The colonoscopy was technically difficult and complex due to significant looping and a tortuous colon inability to hold air at the sigmoid colon. [Solution]. The quality of the bowel preparation was good. Findings: Hemorrhoids were found on perianal exam. A few medium-mouthed diverticula were found in the sigmoid colon. A segmental area of moderately altered vascular, hemorrhagic and petechial mucosa was found in the cecum. Biopsies were taken with a cold forceps for histology. Estimated blood loss was minimal. Three sessile polyps were found in the sigmoid colon, descending colon and ascending colon. The polyps were diminutive in size. These polyps were removed with a hot snare. two polyps retrieved, sigmoid polyp unable to be retrieved The retroflexed view of the distal rectum and anal verge was normal and showed no anal or rectal abnormalities. Impression: - Hemorrhoids found on perianal exam. - Diverticulosis in the sigmoid colon. - Altered vascular, hemorrhagic and petechial mucosa in the cecum. Biopsied. - Three diminutive polyps in the sigmoid colon, in the descending colon and in the ascending colon, removed with a hot snare. - The distal rectum and anal verge are normal on retroflexion view. Recommendation: - Discharge patient to home (ambulatory). - Await pathology results. - Repeat colonoscopy in 5 years for surveillance. Joseluis Cook MD Joseluis Cook MD 05/19/2020 10:54:41 AM Electronically signed by Joseluis Cook MD Number of Addenda: 0 Note Initiated On: 05/19/2020 9:46 AM Estimated Blood Loss: Estimated blood loss was minimal.
[2020-05-19 11:15] VITALS: BP 140/62
== END 2020-05-19 11:33 | disposition home or self-care (01) ==
LOC: M OPP 08:28
PROVIDERS: ATTEND Surgery
DX: Z12.11 Encounter for screening for malignant neoplasm of colon (principal); Z86.010 Personal history of colon polyps; K64.8 Other hemorrhoids; K57.90 Diverticulosis of intestine, part unspecified, without perforation or abscess without bleeding; D12.4 Benign neoplasm of descending colon; D12.5 Benign neoplasm of sigmoid colon; D12.2 Benign neoplasm of ascending colon; K63.89 Other specified diseases of intestine; K22.8 Other specified diseases of esophagus; K44.9 Diaphragmatic hernia without obstruction or gangrene; K29.70 Gastritis, unspecified, without bleeding
CPT/HCPCS: 43239; 45380; 45385; 88305; J2370

== ENCOUNTER → 2020-06-21 | Outpatient (REF) | payer MEDICARE, MEDICAID ==
[~2020-06-21] MED LIST changes: -NS 1,000 ML IV ONE
[2020-06-21 18:39] LABS: CREATININE, URINE 47.7 MG/DL; URINE TOTAL PROTEIN 36.2 MG/DL (0-12)
[2020-06-21 20:27] LABS: CREATININE 24 HOUR, URINE 739.3 MG/24HR (600-1800); TOTAL PROTEIN 24 HOUR URINE 561.1 MG/24HR (50-150)
== END ==
LOC: M LAB REF 16:59
PROVIDERS: ATTEND Internal Medicine Nephrology
DX: N04.8 Nephrotic syndrome with other morphologic changes (principal)

== ENCOUNTER → 2020-11-08 | Outpatient (CLI) | payer MEDICARE, MEDICAID ==
[~2020-11-08] MED LIST changes: +ESCI10TA16; -ESCI10TA2; -LISI-542; +LISI-898; +LISI10TA22; -LISI10TA4
--- NOTE | 2020-11-08 13:36 | REPMRS ---
Patient History The patient states she has not had a clinical breast exam in over a year. Patient is postmenopausal. No known family history of cancer. 3D TOMOSYNTHESIS WAS PERFORMED. The [facility] lifetime risk for breast cancer is 6.1%. Volpara breast density c. Digital Woman Screen Mammo: November 08, 2020 - Exam #: [id number] Bilateral CC and MLO view(s) were taken. Technologist: Nery Leon, Technologist Prior study comparison: September 04, 2017, left breast diagnostic unilateral mammo, performed at [facility] [employer] [facility]. August 25, 2017, bilateral digital mammo screening bilat, performed at [facility] [employer] [facility]. August 06, 2014, bilateral digital mammo screening bilat, performed at [facility] [employer]. FINDINGS: The breast tissue is heterogeneously dense. This may lower the sensitivity of mammography. There has been no change in the appearance of the mammogram from the prior studies. There is a moderate amount of residual fibroglandular tissue which is fairly symmetric. There is no interval development of dominant mass, areas of architectural distortion, or clustered microcalcification typical of malignancy. Assessment: BI-RADS/ACR category 1 mammogram. Negative Mammogram. Recommendation Routine screening mammogram in 1 year (for women over age 40). This mammogram was interpreted with the aid of an FDA-approved computer-aided dectection system. Electronically Signed By: Jm Poole MD 11/08/20 [id number]
--- NOTE | 2020-11-08 14:57 | DEXAMM ---
INDICATION: M81.8 OTHER OSTEOPOROSIS. COMPARISON: 08/25/2017, 10/22/2008. TECHNIQUE: Bone density was measured using dual-energy x-ray absorptiometry (DEXA). FINDINGS: AP SPINE L1-L4 BMD 1.319 g/cm2 Young Adult T-Score 1.0 Age Matched Z-Score 2.3. LT FEMUR, TOTAL BMD 0.933 g/cm2 Young Adult T-Score -0.6 Age Matched Z-Score is 0.4. LT NECK BMD 0.987 g/cm2 Young Adult T-Score -0.4 Age Matched Z-Score 0.9. IMPRESSION: There is normal bone density of the spine. There is normal bone density of the left hip. The density of the spine has decreased 7.6% since the initial exam on 10/22/2008. The density of the spine decreased 0.7% since most recent exam on 08/25/2017. The density of the left hip has decreased 18.4% since initial exam on 10/22/2008. The density of the left hip has decreased 5.4% since most recent exam on 08/25/2017. FOLLOW-UP: Recommendation for the next bone density exam: 5 years. <Electronically signed by Jm Poole > 11/08/20 [id number]
== END ==
LOC: M WHC 12:31
PROVIDERS: ATTEND Internal Medicine
DX: Z12.31 Encounter for screening mammogram for malignant neoplasm of breast (principal); M81.8 Other osteoporosis without current pathological fracture; Z78.0 Asymptomatic menopausal state

== ENCOUNTER → 2020-11-16 | Outpatient (REF) | payer MEDICARE, MEDICAID ==
[2020-11-16 19:35] LABS: TOTAL PROTEIN 7.2 GM/DL (6.4-8.2)
[2020-11-18 14:10] LABS: ALBUMIN 4.62 GM/DL (3.29-5.55); ALBUMIN % 64.1 % (55.8-66.1); ALPHA-1-GLOBULIN % 5.4 % (2.9-4.9); ALPHA-1-GLOBULINS 0.39 GM/DL (0.17-0.41); ALPHA-2-GLOBULINS % 9.7 % (7.1-11.8); BETA-1-GLOBULINS % 5.6 % (4.7-7.2); BETA-2-GLOBULINS 0.32 GM/DL (0.19-0.55); BETA-2-GLOBULINS % 4.4 % (3.2-6.5); GAMMA GLOBULIN % 10.8 % (11.1-18.8); GAMMA GLOBULINS 0.78 GM/DL (0.65-1.58)
[2020-11-18 18:10] LABS: FREE KAPPA LIGHT CHAINS SERUM 35.8 mg/L (3.3-19.4); FREE LAMBDA LIGHT CHAINS SERUM 24.1 mg/L (5.7-26.3); KAPPA/LAMBDA RATIO SERUM 1.49 (0.26-1.65)
== END ==
LOC: M LAB REF 17:27
PROVIDERS: ATTEND Internal Medicine Nephrology
DX: D47.2 Monoclonal gammopathy (principal)

== ENCOUNTER → 2021-01-19 | Outpatient (REF) | payer MEDICARE, MEDICAID ==
[~2021-01-19] MED LIST changes: +OMEP40CA4 PO; -OMEP40CA97 PO
[2021-01-19 14:46] LABS: INR 0.89; PARTIAL THROMBOPLASTIN TIME 27.6 SECONDS (24.2-38.5); PROTHROMBIN TIME 12.2 SECONDS (12.5-14.3)
== END ==
LOC: M LAB REF 13:07
PROVIDERS: ATTEND Internal Medicine
DX: K70.9 Alcoholic liver disease, unspecified (principal)

== ENCOUNTER → 2021-02-14 | Outpatient (CLI) | payer MEDICARE, MEDICAID ==
--- NOTE | 2021-02-14 10:47 | REP ---
INDICATION: NICOTINE DEPENDENCE. COMPARISON: Comparison low-dose screening exam is from February 26, 2020. Comparison is also made with CT study obtained as part of the PET CT dated September 24, 2018.. TECHNIQUE: Dose reduction was performed utilizing CARE dose with automated adjustment of the kV and MAS according to patient size; iterative reconstruction, automated exposure control, as well as adaptive dose shielding. Helical scanning is acquired and 3 mm axial images re-formatted at lung windows. FINDINGS: Preliminary digital environmental manager radiograph demonstrates hyperinflation. Vascular calcification is again noted. There are old rib fractures bilaterally. No bony destructive lesion is appreciated. The ribs are unchanged. In the lung tran there is no evidence of pulmonary mass, new infiltrate, or significant pulmonary nodule. Emphysematous changes are noted in the upper lobes. Study is otherwise negative. IMPRESSION: Lung RADS category 1 findings. Repeat screening exam suggested in 1 year. <Electronically signed by Garfield Lowry > 02/14/21 [id number]
== END ==
LOC: M RAD 08:38
PROVIDERS: ATTEND Internal Medicine
DX: F17.210 Nicotine dependence, cigarettes, uncomplicated (principal)

== ENCOUNTER → 2021-03-28 | Outpatient (REF) | payer MEDICARE, MEDICAID ==
[~2021-03-28] MED LIST changes: -LISI2.5T2; +LISI2.5T9
== END ==
LOC: M LAB REF 13:32
PROVIDERS: ATTEND Internal Medicine Nephrology
DX: E83.42 Hypomagnesemia (principal)

== ENCOUNTER 2021-04-14 11:20 | Emergency (ER) | payer MEDICARE, MEDICAID ==
[~2021-04-14] VITALS: Ht 154.9 cm; Wt 45.5 kg
[2021-04-14] MEDS ORDERED: LEXA5TAB13 (11:48)
--- NOTE | 2021-04-14 12:06 | REPVR ---
PROCEDURE INFORMATION: Exam: CT Head Without Contrast Exam date and time: 04/14/2021 11:57 AM Age: 60 years old Clinical indication: Syncope and collapse TECHNIQUE: Imaging protocol: Computed tomography of the head without contrast. Radiation optimization: All CT scans at this facility use at least one of these dose optimization techniques: automated exposure control; mA and/or kV adjustment per patient size (includes targeted exams where dose is matched to clinical indication); or iterative reconstruction. COMPARISON: CT Head without contrast 11/16/2017 9:14 PM FINDINGS: Brain: No acute intracranial hemorrhage, cerebral edema, or midline shift. Cerebral ventricles: No hydrocephalus. Paranasal sinuses: There is no acute sinusitis. Mastoid air cells: Visualized mastoid air cells are well aerated. Orbital cavity: Unremarkable as visualized. Bones/joints: No acute fracture. Soft tissues: Unremarkable. IMPRESSION: No acute intracranial abnormality. Electronically signed by: Saurabh Nielsen On 04/14/2021 12:06:37 PM
[2021-04-14 12:23] LABS: BASO % 0.4 % (0.0-1.0); EOS % 0.4 % (0.0-3.0); HEMATOCRIT 31.5 % (36.0-47.0); HEMOGLOBIN 11.3 g/dl (12.0-15.5); LYMPH # 2.2 10^3/uL (1.5-5.0); LYMPH % 33.1 % (24.0-44.0); MEAN CORPUSCULAR HEMOGLOBIN 32.1 pg (27.0-33.0); MEAN CORPUSCULAR HGB CONC 35.9 g/dl (32.0-36.5); MEAN CORPUSCULAR VOLUME 89.5 fl (80.0-96.0); MONO # 0.5 10^3/uL (0.0-0.8); MONO % 7.9 % (2.0-8.0); NEUTROPHILS # 3.9 10^3/uL (1.5-8.5); NEUTROPHILS % 57.9 % (36.0-66.0); PLATELET COUNT, AUTOMATED 292 10^3/uL (150-450); RED BLOOD COUNT 3.52 10^6/uL (4.00-5.40); WHITE BLOOD COUNT 6.7 10^3/uL (4.0-10.0)
--- NOTE | 2021-04-14 12:23 | REPVR ---
PROCEDURE INFORMATION: Exam: CT Cervical Spine Without Contrast Exam date and time: 04/14/2021 11:57 AM Age: 60 years old Clinical indication: Other: Syncope TECHNIQUE: Imaging protocol: Computed tomography images of the cervical spine without contrast. Radiation optimization: All CT scans at this facility use at least one of these dose optimization techniques: automated exposure control; mA and/or kV adjustment per patient size (includes targeted exams where dose is matched to clinical indication); or iterative reconstruction. COMPARISON: PT PET/CT Skull/mid thigh 09/24/2018 1:01 PM FINDINGS: Bones/joints: Severe facet arthropathy is present at C3-C4. There is an age-indeterminate fracture involving a small osteophyte along the posterior aspect of the left C4 superior facet (series 304 images 43-47). This is new since the prior CT. There is no other fracture. Normal alignment. Discs/Spinal canal/Neural foramina: Mild degenerative changes of the cervical spine are present. There is no significant spinal canal stenosis. Lungs: Severe centrilobular emphysema is present. Scarring is noted in the lung apices. Soft tissues: Unremarkable. IMPRESSION: Age-indeterminate fracture involving a small osteophyte along the posterior aspect of the left C4 superior facet. This is new since the prior CT. Electronically signed by: Saurabh Nielsen On 04/14/2021 12:22:43 PM
[2021-04-14 12:54] LABS: BLOOD UREA NITROGEN 22 MG/DL (7-18); CALCIUM LEVEL 9.1 MG/DL (8.8-10.2); CARBON DIOXIDE LEVEL 23 MEQ/L (21-32); CHLORIDE LEVEL 97 MEQ/L (98-107); CK-MB VALUE MASS 2.9 NG/ML (<3.6); CPK CREATINE PHOSPHOKINASE 430 U/L (26-192); CREATININE FOR GFR 0.89 MG/DL (0.55-1.30); FREE T4 0.99 NG/DL (0.76-1.46); GLOMERULAR FILTRATION RATE > 60.0 (>45); GLUCOSE, FASTING 94 MG/DL (70-100); MAGNESIUM LEVEL 1.6 MG/DL (1.8-2.4); MB/CK RELATIVE INDEX 0.67 (< OR =4); POTASSIUM SERUM 3.9 MEQ/L (3.5-5.1); SODIUM LEVEL 128 MEQ/L (136-145); TROPONIN I < 0.02 NG/ML (< 0.10)
--- NOTE | 2021-04-14 13:21 | REP ---
INDICATION: trauma. COMPARISON: None. TECHNIQUE: Five views lumbosacral spine. FINDINGS: No compression fracture or malalignment. There is moderate diffuse spurring. There is mild disc space narrowing at all levels with subchondral sclerosis, with a more moderate degree of disc space narrowing at L4-5 with associated subchondral sclerosis and vacuum phenomenon. There is sclerosis and spurring at the posterior facet joints of L5-S1. The posterior elements are intact. Metallic right hip prosthesis is noted. IMPRESSION: Moderate degenerative changes without fracture or dislocation. <Electronically signed by Jm Poole > 04/14/21 [id number]
[2021-04-14] MEDS ORDERED: ACETAMINOPHEN 325 MG TAB PO ONE (13:50)
[2021-04-14 14:30] VITALS: BP 156/74
--- NOTE | 2021-04-15 05:15 | ECGEPIP ---
[facility] - ED Test Date: 2021-04-14 Pat Name: LARRY BRUSH Department: Room: - Gender: Female Night Clerk: DAMIEN : 1960 Requested By: Amina Aldrich Order Number: [id number] Reading MD: Eron Mayfield Measurements Intervals [place] Rate: 79 P: 64 VA: 134 QRS: 52 QRSD: 80 T: 56 QT: 384 QTc: 440 Interpretive Statements Normal sinus rhythm SIMILAR TO 03/12/18 Electronically Signed on 04-15-2021 5:15:30 EDT by Eron Mayfield
--- NOTE | 2021-04-15 06:50 | ED PDOC ---
Post-Departure Follow-Up dr james faxed formalr eport of ct c spine for fu Kassidy Mckinney MD Apr 15, 2021 06:50
== END 2021-04-14 15:37 | disposition home or self-care (01) ==
LOC: EDBD 11:20 → M ED 11:20
DX: S70.01XA Contusion of right hip, initial encounter (principal); S16.1XXA Strain of muscle, fascia and tendon at neck level, initial encounter; W18.39XA Other fall on same level, initial encounter; Y92.018 Other place in single-family (private) house as the place of occurrence of the external cause; I12.9 Hypertensive chronic kidney disease with stage 1 through stage 4 chronic kidney disease, or unspecified chronic kidney disease; N18.9 Chronic kidney disease, unspecified; Z79.899 Other long term (current) drug therapy; Z79.82 Long term (current) use of aspirin; F17.210 Nicotine dependence, cigarettes, uncomplicated

== ENCOUNTER → 2021-04-21 | Outpatient (CLI) | payer MEDICARE, MEDICAID ==
[~2021-04-21] MED LIST changes: +LEXA5TAB13
--- NOTE | 2021-04-21 15:16 | REP ---
INDICATION: PAIN IN RT LEG COMPARISON: None. TECHNIQUE: Real time compression and duplex Doppler interrogation of the right lower extremity deep venous system is performed, including the left common femoral vein.Compression of the right peroneal and posterior tibial veins is performed. FINDINGS: The right common femoral, superficial femoral and popliteal veins are fully compressible with transducer pressure and demonstrate normal spontaneous and phasic flow, without evidence of deep venous thrombosis.The left common femoral vein demonstrates no thrombus.The visualized right peroneal and posterior tibial veins demonstrate no thrombus, evaluation limited due to body habitus. IMPRESSION: No evidence of deep venous thrombosis of the right lower extremity femoral popliteal venous system.The visualized right peroneal and posterior tibial veins demonstrate no thrombus. <Electronically signed by Jm Poole > 04/21/21 [id number]
== END ==
LOC: M RAD 14:41
PROVIDERS: ATTEND Physician Assistant Medical
DX: M79.604 Pain in right leg (principal)

== ENCOUNTER → 2021-07-08 | Outpatient (REF) | payer MEDICARE, MEDICAID ==
[~2021-07-08] MED LIST changes: -LISI-898; -LISI20TA20 PO; +LISI20TA37 PO; +LISI5TAB11
== END ==
LOC: M LAB REF 16:59
PROVIDERS: ATTEND Internal Medicine Nephrology
DX: E83.42 Hypomagnesemia (principal)

== ENCOUNTER → 2022-02-15 | Outpatient (REF) | payer MEDICARE | LOC: M LAB REF 17:26 | PROVIDERS: ATTEND Otolaryngology | DX: C05.9 Malignant neoplasm of palate, unspecified (principal); K13.79 Other lesions of oral mucosa ==

== ENCOUNTER → 2022-02-15 | Outpatient (CLI) | payer MEDICARE, MEDICAID | LOC: M RAD 11:34 | PROVIDERS: ATTEND Internal Medicine | DX: F17.210 Nicotine dependence, cigarettes, uncomplicated (principal) ==

== ENCOUNTER → 2022-04-05 | Outpatient (REF) | payer MEDICARE, MEDICAID ==
[2022-04-05 13:04] LABS: INR 0.9; PROTHROMBIN TIME 12.6 SECONDS (12.7-14.5)
== END ==
LOC: M LAB REF 12:08
PROVIDERS: ATTEND Internal Medicine
DX: Z01.818 Encounter for other preprocedural examination (principal); Z79.82 Long term (current) use of aspirin

== ENCOUNTER → 2022-05-08 | Outpatient (CLI) | payer MEDICARE, MEDICAID | LOC: M PLARAD 10:21 | PROVIDERS: ATTEND Internal Medicine Hematology & Oncology | DX: R91.8 Other nonspecific abnormal finding of lung field (principal) | CPT/HCPCS: 78815; A9552 ==

== ENCOUNTER → 2022-06-06 | Outpatient (CLI) | payer MEDICARE, MEDICAID ==
[~2022-06-06] MED LIST changes: +AMLO1TAB24; +CARV6.25 PO; +FOLI400T13 PO; +LISI20TA33 PO; +MAGICMW PO; +OXYC-517; +VITMTA PO
== END ==
LOC: M ONCR 09:50
PROVIDERS: ATTEND General Practice
DX: C06.2 Malignant neoplasm of retromolar area (principal); F17.210 Nicotine dependence, cigarettes, uncomplicated; F10.11 Alcohol abuse, in remission; N18.9 Chronic kidney disease, unspecified; Z79.82 Long term (current) use of aspirin; Z79.891 Long term (current) use of opiate analgesic; Z79.899 Other long term (current) drug therapy; R53.83 Other fatigue; R13.10 Dysphagia, unspecified; H92.09 Otalgia, unspecified ear; J02.9 Acute pharyngitis, unspecified
CPT/HCPCS: 31575; G0463

== ENCOUNTER → 2022-06-19 | Outpatient (CLI) | payer MEDICARE, MEDICAID | LOC: M LABSMTC 11:10 | PROVIDERS: ATTEND Anesthesiology | DX: Z01.812 Encounter for preprocedural laboratory examination (principal); Z11.52 Encounter for screening for COVID-19 ==

== ENCOUNTER → 2022-06-21 | Outpatient (CLI) | payer MEDICARE, MEDICAID ==
[~2022-06-21] MED LIST changes: -HYDR-3363; +HYDR-3363 PO; +LIDOCAINE 1% MDV 20ML VIAL As Ordered ONE; +MIDAZOLAM INJ 2MG/2ML VIAL (J2250 PER 1MG) As Ordered ONE; +NS 1,000 ML IV SCH; -TRAZ-257; +TRAZ-257 PO; -VELT1POW; +VELT1POW PO; +ceFAZolin 2 GM/D5W 50 ML IV BAG (J0690 PER 500MG) As Ordered ONE; +ceFAZolin SOD 2 GM in IV 1 EA IV ONE; +diphenhydrAMINE 50MG/ML VIAL As Ordered ONE; +fentaNYL 100 MCG/2 ML INJECTION As Ordered ONE
[2022-06-21 16:10] VITALS: BP 150/70
== END ==
LOC: M IRPRO 11:26
PROVIDERS: ATTEND Internal Medicine Medical Oncology
DX: C08.9 Malignant neoplasm of major salivary gland, unspecified (principal)
CPT/HCPCS: 36561; 99152; 99153; C1769; C1788; C1894; J0690; J1200; J1642; J1644; J2250; J3010

== ENCOUNTER 2022-06-28 09:38 | Outpatient (RCR) | payer MEDICARE, MEDICAID ==
[~2022-06-28 09:38] MED LIST changes: -LIDOCAINE 1% MDV 20ML VIAL As Ordered ONE; -MIDAZOLAM INJ 2MG/2ML VIAL (J2250 PER 1MG) As Ordered ONE; -NS 1,000 ML IV SCH; -ceFAZolin 2 GM/D5W 50 ML IV BAG (J0690 PER 500MG) As Ordered ONE; -ceFAZolin SOD 2 GM in IV 1 EA IV ONE; -diphenhydrAMINE 50MG/ML VIAL As Ordered ONE; -fentaNYL 100 MCG/2 ML INJECTION As Ordered ONE
[2022-06-29] MEDS ORDERED: ONDA-83 PO (09:40)
[2022-06-29] MEDS ORDERED: PROC10TA5 PO (09:40)
[2022-06-29] MEDS ORDERED: methylPREDNISolone 125MG 2ML VIAL As Ordered ONE (11:16)
[2022-06-29] MEDS ORDERED: diphenhydrAMINE 50MG/ML VIAL As Ordered ONE (11:16)
[2022-06-29] MEDS ORDERED: FAMOTIDINE 20MG/2ML VIAL As Ordered ONE (11:20)
[2022-07-03] MEDS ORDERED: EPIN0.3I11 IM (10:07)
[2022-07-05] MEDS ORDERED: HYDR-3363 PO (10:11)
== END 2022-06-28 23:59 | disposition home or self-care (01) ==
LOC: M ONCR 09:38
PROVIDERS: ATTEND General Practice
DX: C06.2 Malignant neoplasm of retromolar area (principal)

== ENCOUNTER 2022-06-29 11:40 | Emergency (ER) | payer MEDICARE, MEDICAID ==
[~2022-06-29 11:40] MED LIST changes: +ONDA-83 PO; +PROC10TA5 PO
[2022-06-29 12:11] LABS: BASO % 0.2 % (0.0-1.0); EOS % 0.4 % (0.0-3.0); HEMATOCRIT 37.7 % (36.0-47.0); HEMOGLOBIN 12.4 g/dl (12.0-15.5); LYMPH % 21.6 % (24.0-44.0); MEAN CORPUSCULAR HEMOGLOBIN 30.5 pg (27.0-33.0); MEAN CORPUSCULAR HGB CONC 32.9 g/dl (32.0-36.5); MEAN CORPUSCULAR VOLUME 92.9 fl (80.0-96.0); MONO # 0.4 10^3/uL (0.0-0.8); MONO % 4.3 % (2.0-8.0); NEUTROPHILS # 6.7 10^3/uL (1.5-8.5); NEUTROPHILS % 72.9 % (36.0-66.0); PLATELET COUNT, AUTOMATED 335 10^3/uL (150-450); RED BLOOD COUNT 4.06 10^6/uL (4.00-5.40); WHITE BLOOD COUNT 9.2 10^3/uL (4.0-10.0)
[2022-06-29 12:31] LABS: BILIRUBIN,DIRECT 0.1 MG/DL (<0.4); CPK CREATINE PHOSPHOKINASE 59 U/L (34-145)
[2022-06-29 12:47] LABS: ALBUMIN 2.8 G/DL (3.2-5.2); ALKALINE PHOSPHATASE 74 U/L (46-116); ALT/SGPT 13 U/L (7.0-40); AST/SGOT 15 U/L (<34); BILIRUBIN,TOTAL 0.3 MG/DL (0.3-1.2); BLOOD UREA NITROGEN 25 MG/DL (9-23); CALCIUM LEVEL 8.2 MG/DL (8.3-10.6); CARBON DIOXIDE LEVEL 26 MMOL/L (20-31); CHLORIDE LEVEL 96 MMOL/L (98-107); CK-MB VALUE MASS 1.1 NG/ML (<3.6); CREATININE FOR GFR 0.78 MG/DL (0.55-1.30); GLOMERULAR FILTRATION RATE > 60.0 (>45); GLUCOSE, FASTING 178 MG/DL (74-106); MB/CK RELATIVE INDEX 1.86 (< OR =4); SODIUM LEVEL 128 MMOL/L (136-145); THYROID STIMULATING HORMONE 1.187 uIU/ML (0.55-4.78); THYROXINE (T4) 11.6 UG/DL (4.5-10.9); TOTAL PROTEIN 5.4 G/DL (5.7-8.2)
[2022-06-29 15:45] VITALS: BP 113/60
[2022-07-03] MEDS ORDERED: EPIN0.3I11 IM (10:07)
== END 2022-06-29 15:59 | disposition home or self-care (01) ==
LOC: M ED 11:40
DX: T88.6XXA Anaphylactic reaction due to adverse effect of correct drug or medicament properly administered, initial encounter (principal); T45.1X5A Adverse effect of antineoplastic and immunosuppressive drugs, initial encounter; I10 Essential (primary) hypertension; N18.9 Chronic kidney disease, unspecified; J44.9 Chronic obstructive pulmonary disease, unspecified; D47.2 Monoclonal gammopathy; F17.200 Nicotine dependence, unspecified, uncomplicated; Z79.82 Long term (current) use of aspirin; Z79.899 Other long term (current) drug therapy; Z88.8 Allergy status to other drugs, medicaments and biological substances

== ENCOUNTER 2022-07-28 09:46 | Outpatient (RCR) | payer MEDICARE, MEDICAID ==
[~2022-07-28 09:46] MED LIST changes: +EPIN0.3I11 IM; +MAGN400C PO
== END 2022-07-29 ==
LOC: M ONCR 09:46
PROVIDERS: ATTEND General Practice
DX: C06.2 Malignant neoplasm of retromolar area (principal)

== ENCOUNTER 2022-08-18 09:37 | Outpatient (RCR) | payer MEDICARE, MEDICAID ==
[~2022-08-18 09:37] MED LIST changes: +NYST-38 PO; +OXYC-517 PO
[2022-09-01] MEDS ORDERED: OXYC1SOL3 PO (10:15)
[2022-09-14] MEDS ORDERED: Magic Mouthwash PO (13:12)
[2022-09-14] MEDS ORDERED: OXYC1SOL3 PO (13:12)
[2022-09-29] MEDS ORDERED: Magic Mouthwash PO (14:27)
[2022-10-03] MEDS ORDERED: Magic Mouthwash PO ×2 (12:42→12:48)
[2022-10-03] MEDS ORDERED: MAGICMW SSP (12:48)
== END 2022-08-29 ==
LOC: M ONCR 09:37
PROVIDERS: ATTEND General Practice
DX: C06.2 Malignant neoplasm of retromolar area (principal)

== ENCOUNTER → 2022-09-01 | Outpatient (CLI) | payer MEDICARE, MEDICAID ==
[~2022-09-01] MED LIST changes: +OXYC1SOL3 PO
== END ==
LOC: M ONCR 09:53
PROVIDERS: ATTEND General Practice
DX: K12.30 Oral mucositis (ulcerative), unspecified (principal); Z79.891 Long term (current) use of opiate analgesic

== ENCOUNTER 2022-09-13 10:54 | Emergency (ER) | payer MEDICARE, MEDICAID ==
[~2022-09-13] VITALS: Ht 154.9 cm; Wt 44.5 kg
[2022-09-13] MEDS ORDERED: NS 1,340 ML in IV 1 EA IV ONE (11:15)
[2022-09-13 11:38] LABS: BASO % 0.3 % (0.0-1.0); EOS % 0.2 % (0.0-3.0); HEMATOCRIT 30.6 % (36.0-47.0); HEMOGLOBIN 10.2 g/dl (12.0-15.5); LYMPH # 0.7 10^3/uL (1.5-5.0); LYMPH % 7.5 % (24.0-44.0); MEAN CORPUSCULAR HEMOGLOBIN 31.9 pg (27.0-33.0); MEAN CORPUSCULAR HGB CONC 33.3 g/dl (32.0-36.5); MEAN CORPUSCULAR VOLUME 95.6 fl (80.0-96.0); MONO # 0.9 10^3/uL (0.0-0.8); MONO % 9.4 % (2.0-8.0); NEUTROPHILS % 82.2 % (36.0-66.0); PLATELET COUNT, AUTOMATED 299 10^3/uL (150-450); WHITE BLOOD COUNT 9.8 10^3/uL (4.0-10.0)
[2022-09-13 12:11] LABS: CPK CREATINE PHOSPHOKINASE 26 U/L (34-145)
[2022-09-13 13:33] LABS: ALBUMIN 2.7 G/DL (3.2-5.2); ALKALINE PHOSPHATASE 113 U/L (46-116); ALT/SGPT 13 U/L (7.0-40); AST/SGOT 18 U/L (<34); BILIRUBIN,DIRECT < 0.1 MG/DL (<0.4); BILIRUBIN,TOTAL 0.2 MG/DL (0.3-1.2); BLOOD UREA NITROGEN 21 MG/DL (9-23); CARBON DIOXIDE LEVEL 25 MMOL/L (20-31); CHLORIDE LEVEL 97 MMOL/L (98-107); CK-MB VALUE MASS < 1.0 NG/ML (<3.6); CREATININE FOR GFR 0.78 MG/DL (0.55-1.30); GLOMERULAR FILTRATION RATE > 60.0 (>45); GLUCOSE, FASTING 119 MG/DL (74-106); MAGNESIUM LEVEL 1.7 MG/DL (1.8-2.4); MB/CK RELATIVE INDEX 3.84 (< OR =4); POTASSIUM SERUM 4.1 MMOL/L (3.5-5.1); SODIUM LEVEL 130 MMOL/L (136-145); THYROID STIMULATING HORMONE 0.468 uIU/ML (0.55-4.78)
[2022-09-13] MEDS ORDERED: MAG SULF 1GM/100ML (MAG RUN) 1 GM in IV 1 EA IV ONE (14:00)
[2022-09-13] MEDS ORDERED: ISOVUE-370 76% 100ML VIAL As Ordered ONE (14:07)
[2022-09-13] MEDS ORDERED: MAGN400T2 PO (15:53)
[2022-09-13 17:12] VITALS: BP 135/71
[2022-09-13 21:07] LABS: TOTAL PROTEIN 8.4 G/DL (5.7-8.2)
[2022-09-14] MEDS ORDERED: Magic Mouthwash PO (13:12)
[2022-09-14] MEDS ORDERED: OXYC1SOL3 PO (13:12)
== END 2022-09-13 17:23 | disposition home or self-care (01) ==
LOC: M ED 10:54 → EDBD 10:54 → M ED 17:23
DX: E83.42 Hypomagnesemia (principal); R19.7 Diarrhea, unspecified; N18.9 Chronic kidney disease, unspecified; D47.2 Monoclonal gammopathy; Z87.891 Personal history of nicotine dependence; R93.3 Abnormal findings on diagnostic imaging of other parts of digestive tract; K76.0 Fatty (change of) liver, not elsewhere classified; Z96.641 Presence of right artificial hip joint; Z79.82 Long term (current) use of aspirin; Z79.899 Other long term (current) drug therapy; Z88.8 Allergy status to other drugs, medicaments and biological substances
CPT/HCPCS: 71045; 71275; 74177; 80048; 80076; 82550; 82553; 83605; 83735; 84145; 84443; 84484; 85025; 87040; 87077; 87486; 87581; 87633; 87798; 93005; 93041; 94760; 96361; 96365; 99285; Q9967

== ENCOUNTER → 2022-09-15 | Outpatient (REF) | payer MEDICARE, MEDICAID ==
[~2022-09-15] MED LIST changes: +MAGN400T2 PO; +Magic Mouthwash PO
== END ==
LOC: M LAB REF 12:34
PROVIDERS: ATTEND Internal Medicine
DX: R19.7 Diarrhea, unspecified (principal); C06.2 Malignant neoplasm of retromolar area; K12.30 Oral mucositis (ulcerative), unspecified; Z92.21 Personal history of antineoplastic chemotherapy; Z92.3 Personal history of irradiation
CPT/HCPCS: 87507; G0463

== ENCOUNTER → 2022-09-15 | Outpatient (CLI) | payer MEDICARE, MEDICAID | LOC: M ONCR 10:53 | PROVIDERS: ATTEND General Practice | DX: C06.2 Malignant neoplasm of retromolar area (principal); K12.30 Oral mucositis (ulcerative), unspecified; Z92.21 Personal history of antineoplastic chemotherapy; Z92.3 Personal history of irradiation ==

== ENCOUNTER 2022-10-27 10:43 | Inpatient (IN) | payer MEDICARE, MEDICAID ==
[~2022-10-27] VITALS: Ht 154.9 cm; Wt 47.6 kg
[~2022-10-27 10:43] MED LIST changes: -FOLI0.4T5 PO; -FURO20TA2 PO; -LEXA1TAB PO; -LISI10TA22 PO; -SODI1TAB6 PO
[2022-10-27 11:45] VITALS: BP 97/50
[2022-10-27 11:48] LABS: BASO % 0.1 % (0.0-1.0); EOS % 0.1 % (0.0-3.0); HEMATOCRIT 25.8 % (36.0-47.0); HEMOGLOBIN 8.9 g/dl (12.0-15.5); LYMPH # 0.7 10^3/uL (1.5-5.0); LYMPH % 7.6 % (24.0-44.0); MEAN CORPUSCULAR HEMOGLOBIN 33.1 pg (27.0-33.0); MEAN CORPUSCULAR HGB CONC 34.5 g/dl (32.0-36.5); MEAN CORPUSCULAR VOLUME 95.9 fl (80.0-96.0); MONO # 0.8 10^3/uL (0.0-0.8); MONO % 8.5 % (2.0-8.0); NEUTROPHILS # 8.1 10^3/uL (1.5-8.5); NEUTROPHILS % 83.3 % (36.0-66.0); PLATELET COUNT, AUTOMATED 256 10^3/uL (150-450); RED BLOOD COUNT 2.69 10^6/uL (4.00-5.40); WHITE BLOOD COUNT 9.7 10^3/uL (4.0-10.0)
[2022-10-27 12:00] LABS: INR 1.02; PROTHROMBIN TIME 13.6 SECONDS (12.5-14.5)
[2022-10-27 12:07] LABS: ALBUMIN 2.3 G/DL (3.2-5.2); ALKALINE PHOSPHATASE 113 U/L (46-116); ALT/SGPT 26 U/L (7.0-40); AST/SGOT 22 U/L (<34); BILIRUBIN,TOTAL 0.2 MG/DL (0.3-1.2); BLOOD UREA NITROGEN 22 MG/DL (9-23); CALCIUM LEVEL 8.6 MG/DL (8.3-10.6); CARBON DIOXIDE LEVEL 29 MMOL/L (20-31); CHLORIDE LEVEL 82 MMOL/L (98-107); CREATININE FOR GFR 0.65 MG/DL (0.55-1.30); GLOMERULAR FILTRATION RATE > 60.0 (>45); GLUCOSE, FASTING 106 MG/DL (74-106); POTASSIUM SERUM 4.8 MMOL/L (3.5-5.1); SODIUM LEVEL 115 MMOL/L (136-145); TOTAL PROTEIN 5.8 G/DL (5.7-8.2)
[2022-10-27] MEDS ORDERED: FOLI0.4T5 PO (13:43)
[2022-10-27] MEDS ORDERED: MAGN400T2 PO (13:43)
[2022-10-27] MEDS ORDERED: LEXA1TAB PO (13:43)
[2022-10-27] MEDS ORDERED: LISI10TA22 PO (13:43)
[2022-10-27] MEDS ORDERED: HOME MED LIST COMPLETE! XX SCH (13:55)
[2022-10-27 13:56] LABS: OSMOLALITY SERUM 251 MOSM/KG (280-301)
[2022-10-27] MEDS ORDERED: ISOVUE-370 76% 100ML VIAL As Ordered ONE (14:08)
[2022-10-27] MEDS ORDERED: ONDANSETRON 4MG TAB PO PRN (14:10)
[2022-10-27 14:12] LABS: OSMOLALITY URINE 329 MOSM/KG (50-1400)
[2022-10-27 14:30] LABS: SODIUM,RANDOM URINE < 10 MMOL/L
[2022-10-27] MEDS: AMPICILLIN SOD/SULBACTAM SOD 3 GM in D5W MINI-BAG PLUS 100 ML IV SCH ×2 (14:57→22:16)
[2022-10-27 15:38] VITALS: BP 110/56
[2022-10-27] MEDS: NS 1,000 ML IV SCH (15:52)
[2022-10-27] MEDS: NYSTATIN 500,000U/5ML SUSP UDC PO SCH ×2 (15:52→22:16)
[2022-10-27] MEDS: ACETAMINOPHEN 500 MG TAB PO PRN (15:55)
[2022-10-27 20:00] VITALS: BP 105/60
[2022-10-27] MEDS: MYCOPHENOLATE MOFETIL 250 MG CAP (J7517) PO SCH (22:15)
[2022-10-27] MEDS: CARVedilol 6.25 MG TAB PO SCH (22:16)
[2022-10-27] MEDS: traZODone 100 MG TAB PO SCH (22:16)
[2022-10-27] MEDS: HEPARIN SOD (PORCINE) 5000UNITS/ML 1ML VIAL/SYRINGE SQ SCH (22:17)
[2022-10-28] VITALS (7 sets, daily range): BP systolic 112–153; BP diastolic 56–67
[2022-10-28 00:38] LABS: BLOOD UREA NITROGEN 20 MG/DL (9-23); CARBON DIOXIDE LEVEL 29 MMOL/L (20-31); CHLORIDE LEVEL 85 MMOL/L (98-107); CREATININE FOR GFR 0.62 MG/DL (0.55-1.30); GLOMERULAR FILTRATION RATE > 60.0 (>45); GLUCOSE, FASTING 107 MG/DL (74-106); POTASSIUM SERUM 3.9 MMOL/L (3.5-5.1); SODIUM LEVEL 118 MMOL/L (136-145)
[2022-10-28] MEDS: AMPICILLIN SOD/SULBACTAM SOD 3 GM in D5W MINI-BAG PLUS 100 ML IV SCH ×4 (02:33→21:07)
[2022-10-28] MEDS: NS 1,000 ML IV SCH (04:34)
[2022-10-28] MEDS: HEPARIN SOD (PORCINE) 5000UNITS/ML 1ML VIAL/SYRINGE SQ SCH ×3 (05:23→21:13)
[2022-10-28 05:38] LABS: BASO % 0.1 % (0.0-1.0); EOS % 0.3 % (0.0-3.0); HEMATOCRIT 23.1 % (36.0-47.0); LYMPH # 0.7 10^3/uL (1.5-5.0); LYMPH % 9.8 % (24.0-44.0); MEAN CORPUSCULAR HEMOGLOBIN 32.5 pg (27.0-33.0); MEAN CORPUSCULAR HGB CONC 34.6 g/dl (32.0-36.5); MEAN CORPUSCULAR VOLUME 93.9 fl (80.0-96.0); MONO # 0.6 10^3/uL (0.0-0.8); MONO % 8.1 % (2.0-8.0); NEUTROPHILS % 81.3 % (36.0-66.0); PLATELET COUNT, AUTOMATED 222 10^3/uL (150-450); RED BLOOD COUNT 2.46 10^6/uL (4.00-5.40); WHITE BLOOD COUNT 7.4 10^3/uL (4.0-10.0)
[2022-10-28 06:06] LABS: BLOOD UREA NITROGEN 16 MG/DL (9-23); CARBON DIOXIDE LEVEL 28 MMOL/L (20-31); CHLORIDE LEVEL 93 MMOL/L (98-107); CREATININE FOR GFR 0.58 MG/DL (0.55-1.30); GLOMERULAR FILTRATION RATE > 60.0 (>45); GLUCOSE, FASTING 90 MG/DL (74-106); POTASSIUM SERUM 3.9 MMOL/L (3.5-5.1); SODIUM LEVEL 125 MMOL/L (136-145)
[2022-10-28] MEDS ORDERED: D5W 500 ML IV STA (07:23)
[2022-10-28] MEDS: ASPIRIN 81MG ENTERIC TABLET PO SCH (08:14)
[2022-10-28] MEDS: ATORVASTATIN 20 MG TAB PO SCH (08:15)
[2022-10-28] MEDS: FOLIC ACID 1MG TAB PO SCH (08:15)
[2022-10-28] MEDS: MULTIVITAMINS/MINERALS THERAP 1 TAB PO SCH (08:15)
[2022-10-28] MEDS: MAGNESIUM OXIDE 400MG TAB (MAG-OX) PO SCH (08:15)
[2022-10-28] MEDS: NYSTATIN 500,000U/5ML SUSP UDC PO SCH ×3 (08:15→21:07)
[2022-10-28] MEDS: THIAMINE 100 MG TAB PO SCH (08:15)
[2022-10-28] MEDS: MYCOPHENOLATE MOFETIL 250 MG CAP (J7517) PO SCH ×2 (08:16→21:07)
[2022-10-28] MEDS: CARVedilol 6.25 MG TAB PO SCH ×2 (08:18→21:08)
[2022-10-28] MEDS ORDERED: amLODIPine 5 MG TAB PO SCH (09:00)
[2022-10-28 09:03] LABS: ALKALINE PHOSPHATASE 89 U/L (46-116); ALT/SGPT 17 U/L (7.0-40); AST/SGOT 16 U/L (<34); BILIRUBIN,DIRECT < 0.1 MG/DL (<0.4); BILIRUBIN,TOTAL 0.2 MG/DL (0.3-1.2); TOTAL PROTEIN 5.1 G/DL (5.7-8.2)
[2022-10-28] MEDS ORDERED: ALBUTEROL 90 MCG/ACT 8GM HFA INHALER INH PRN (09:40)
[2022-10-28] MEDS: NICOTINE 21MG/24HR 1 EA TRANSDERMAL TD SCH (11:52)
[2022-10-28] MEDS ORDERED: DESMOPRESSIN ACETATE 0.1 MG TAB PO ONE (12:00)
[2022-10-28] MEDS: NS 0.45% 1,000 ML IV SCH (13:14)
[2022-10-28] MEDS: MAGIC MOUTHWASH SUSPENSION BTL SSP PRN (16:40)
[2022-10-28] MEDS: traZODone 100 MG TAB PO SCH (21:07)
[2022-10-29] MEDS: ACETAMINOPHEN 500 MG TAB PO PRN ×3 (00:22→18:16)
[2022-10-29] MEDS: NS 0.45% 1,000 ML IV SCH (01:37)
[2022-10-29] MEDS: AMPICILLIN SOD/SULBACTAM SOD 3 GM in D5W MINI-BAG PLUS 100 ML IV SCH ×4 (01:37→20:35)
[2022-10-29 04:38] VITALS: BP 139/65
[2022-10-29 05:47] LABS: BASO % 0.2 % (0.0-1.0); EOS % 0.2 % (0.0-3.0); HEMATOCRIT 22.7 % (36.0-47.0); HEMOGLOBIN 7.9 g/dl (12.0-15.5); LYMPH # 0.8 10^3/uL (1.5-5.0); LYMPH % 16.1 % (24.0-44.0); MEAN CORPUSCULAR HEMOGLOBIN 32.5 pg (27.0-33.0); MEAN CORPUSCULAR HGB CONC 34.8 g/dl (32.0-36.5); MEAN CORPUSCULAR VOLUME 93.4 fl (80.0-96.0); MONO # 0.4 10^3/uL (0.0-0.8); MONO % 8.3 % (2.0-8.0); NEUTROPHILS # 3.7 10^3/uL (1.5-8.5); PLATELET COUNT, AUTOMATED 220 10^3/uL (150-450); RED BLOOD COUNT 2.43 10^6/uL (4.00-5.40); WHITE BLOOD COUNT 4.9 10^3/uL (4.0-10.0)
[2022-10-29] MEDS: HEPARIN SOD (PORCINE) 5000UNITS/ML 1ML VIAL/SYRINGE SQ SCH ×3 (05:53→21:11)
[2022-10-29 06:05] LABS: ALBUMIN 1.9 G/DL (3.2-5.2); ALKALINE PHOSPHATASE 92 U/L (46-116); ALT/SGPT 19 U/L (7.0-40); AST/SGOT 16 U/L (<34); BILIRUBIN,DIRECT < 0.1 MG/DL (<0.4); BILIRUBIN,TOTAL 0.2 MG/DL (0.3-1.2); BLOOD UREA NITROGEN 9 MG/DL (9-23); CALCIUM LEVEL 7.7 MG/DL (8.3-10.6); CARBON DIOXIDE LEVEL 26 MMOL/L (20-31); CHLORIDE LEVEL 92 MMOL/L (98-107); CREATININE FOR GFR 0.57 MG/DL (0.55-1.30); GLOMERULAR FILTRATION RATE > 60.0 (>45); GLUCOSE, FASTING 90 MG/DL (74-106); POTASSIUM SERUM 3.5 MMOL/L (3.5-5.1); SODIUM LEVEL 123 MMOL/L (136-145)
[2022-10-29 08:05] VITALS: BP 154/66
[2022-10-29] MEDS: MAGNESIUM OXIDE 400MG TAB (MAG-OX) PO SCH (09:01)
[2022-10-29] MEDS: NYSTATIN 500,000U/5ML SUSP UDC PO SCH ×3 (09:01→20:35)
[2022-10-29] MEDS: ASPIRIN 81MG ENTERIC TABLET PO SCH (09:01)
[2022-10-29] MEDS: MULTIVITAMINS/MINERALS THERAP 1 TAB PO SCH (09:01)
[2022-10-29] MEDS: MYCOPHENOLATE MOFETIL 250 MG CAP (J7517) PO SCH ×2 (09:02→20:36)
[2022-10-29] MEDS: FOLIC ACID 1MG TAB PO SCH (09:02)
[2022-10-29] MEDS: CARVedilol 6.25 MG TAB PO SCH ×2 (09:02→20:37)
[2022-10-29] MEDS: ATORVASTATIN 20 MG TAB PO SCH (09:03)
[2022-10-29] MEDS: NICOTINE 21MG/24HR 1 EA TRANSDERMAL TD SCH (09:03)
[2022-10-29] MEDS: THIAMINE 100 MG TAB PO SCH (09:03)
[2022-10-29 11:43] LABS: OSMOLALITY URINE 396 MOSM/KG (50-1400)
[2022-10-29 11:51] LABS: SODIUM,RANDOM URINE 103 MMOL/L
[2022-10-29 12:25] VITALS: BP 124/56
[2022-10-29] MEDS ORDERED: TOLVAPTAN 7.5 MG HALF-TAB PO ONE (14:00)
[2022-10-29] MEDS: MAGIC MOUTHWASH SUSPENSION BTL SSP PRN (15:49)
[2022-10-29 16:01] VITALS: BP 136/63
[2022-10-29 20:17] VITALS: BP 134/63
[2022-10-29] MEDS: traZODone 100 MG TAB PO SCH (20:36)
[2022-10-30] VITALS: BP 130/59
[2022-10-30] MEDS: AMPICILLIN SOD/SULBACTAM SOD 3 GM in D5W MINI-BAG PLUS 100 ML IV SCH ×4 (02:03→20:30)
[2022-10-30 04:08] VITALS: BP 152/69
[2022-10-30] MEDS: HEPARIN SOD (PORCINE) 5000UNITS/ML 1ML VIAL/SYRINGE SQ SCH (05:22)
[2022-10-30 06:21] LABS: BASO % 0.5 % (0.0-1.0); EOS % 0.2 % (0.0-3.0); HEMATOCRIT 26.4 % (36.0-47.0); HEMOGLOBIN 8.9 g/dl (12.0-15.5); LYMPH # 0.7 10^3/uL (1.5-5.0); LYMPH % 16.6 % (24.0-44.0); MEAN CORPUSCULAR HEMOGLOBIN 32.4 pg (27.0-33.0); MEAN CORPUSCULAR HGB CONC 33.7 g/dl (32.0-36.5); MONO # 0.3 10^3/uL (0.0-0.8); MONO % 7.7 % (2.0-8.0); NEUTROPHILS # 3.1 10^3/uL (1.5-8.5); NEUTROPHILS % 74.5 % (36.0-66.0); PLATELET COUNT, AUTOMATED 260 10^3/uL (150-450); RED BLOOD COUNT 2.75 10^6/uL (4.00-5.40); WHITE BLOOD COUNT 4.2 10^3/uL (4.0-10.0)
[2022-10-30 06:55] LABS: ALBUMIN 2.3 G/DL (3.2-5.2); ALKALINE PHOSPHATASE 103 U/L (46-116); ALT/SGPT 19 U/L (7.0-40); AST/SGOT 18 U/L (<34); BILIRUBIN,DIRECT < 0.1 MG/DL (<0.4); BILIRUBIN,TOTAL 0.2 MG/DL (0.3-1.2); BLOOD UREA NITROGEN 8 MG/DL (9-23); CALCIUM LEVEL 8.4 MG/DL (8.3-10.6); CARBON DIOXIDE LEVEL 24 MMOL/L (20-31); CHLORIDE LEVEL 102 MMOL/L (98-107); CREATININE FOR GFR 0.72 MG/DL (0.55-1.30); GLOMERULAR FILTRATION RATE > 60.0 (>45); GLUCOSE, FASTING 87 MG/DL (74-106); POTASSIUM SERUM 3.7 MMOL/L (3.5-5.1); SODIUM LEVEL 132 MMOL/L (136-145); TOTAL PROTEIN 5.5 G/DL (5.7-8.2)
[2022-10-30] MEDS: D5W 500 ML IV SCH ×2 (07:10→08:44)
[2022-10-30] MEDS: NICOTINE 21MG/24HR 1 EA TRANSDERMAL TD SCH (08:59)
[2022-10-30] MEDS: MYCOPHENOLATE MOFETIL 250 MG CAP (J7517) PO SCH ×2 (08:59→20:31)
[2022-10-30] MEDS: NYSTATIN 500,000U/5ML SUSP UDC PO SCH ×3 (08:59→20:30)
[2022-10-30] MEDS: ASPIRIN 81MG ENTERIC TABLET PO SCH (09:00)
[2022-10-30] MEDS ORDERED: PATIROMER SORBITEX CALCIUM 8.4 GM POWDER PACKET (VELTASSA) PO SCH (09:00)
[2022-10-30] MEDS: FOLIC ACID 1MG TAB PO SCH (09:00)
[2022-10-30] MEDS: THIAMINE 100 MG TAB PO SCH (09:00)
[2022-10-30] MEDS: MULTIVITAMINS/MINERALS THERAP 1 TAB PO SCH (09:00)
[2022-10-30] MEDS: MAGNESIUM OXIDE 400MG TAB (MAG-OX) PO SCH (09:01)
[2022-10-30] MEDS: CARVedilol 6.25 MG TAB PO SCH ×2 (09:02→20:31)
[2022-10-30] MEDS: ATORVASTATIN 20 MG TAB PO SCH (09:03)
[2022-10-30 12:07] VITALS: BP 145/66
[2022-10-30] MEDS ORDERED: HEPARIN SOD (PORCINE) 5000UNITS/ML 1ML VIAL/SYRINGE SQ SCH (14:00)
[2022-10-30] MEDS: ACETAMINOPHEN 500 MG TAB PO PRN (14:11)
[2022-10-30 16:00] VITALS: BP 147/88
[2022-10-30 19:48] VITALS: BP 129/59
[2022-10-30] MEDS: traZODone 100 MG TAB PO SCH (20:31)
[2022-10-30 23:27] VITALS: BP 133/60
[2022-10-31] MEDS: AMPICILLIN SOD/SULBACTAM SOD 3 GM in D5W MINI-BAG PLUS 100 ML IV SCH ×2 (02:52→08:30)
[2022-10-31 03:31] VITALS: BP 152/66
[2022-10-31 06:02] LABS: BASO % 0.5 % (0.0-1.0); EOS % 0.5 % (0.0-3.0); HEMATOCRIT 25.1 % (36.0-47.0); HEMOGLOBIN 8.5 g/dl (12.0-15.5); LYMPH # 0.7 10^3/uL (1.5-5.0); MEAN CORPUSCULAR HEMOGLOBIN 32.2 pg (27.0-33.0); MEAN CORPUSCULAR HGB CONC 33.9 g/dl (32.0-36.5); MEAN CORPUSCULAR VOLUME 95.1 fl (80.0-96.0); MONO # 0.4 10^3/uL (0.0-0.8); MONO % 10.8 % (2.0-8.0); NEUTROPHILS # 2.8 10^3/uL (1.5-8.5); NEUTROPHILS % 69.7 % (36.0-66.0); PLATELET COUNT, AUTOMATED 250 10^3/uL (150-450); RED BLOOD COUNT 2.64 10^6/uL (4.00-5.40)
[2022-10-31 06:26] LABS: ALBUMIN 2.2 G/DL (3.2-5.2); ALKALINE PHOSPHATASE 96 U/L (46-116); ALT/SGPT 23 U/L (7.0-40); AST/SGOT 18 U/L (<34); BILIRUBIN,DIRECT < 0.1 MG/DL (<0.4); BILIRUBIN,TOTAL 0.2 MG/DL (0.3-1.2); BLOOD UREA NITROGEN 8 MG/DL (9-23); CALCIUM LEVEL 8.4 MG/DL (8.3-10.6); CARBON DIOXIDE LEVEL 24 MMOL/L (20-31); CHLORIDE LEVEL 98 MMOL/L (98-107); CREATININE FOR GFR 0.64 MG/DL (0.55-1.30); GLOMERULAR FILTRATION RATE > 60.0 (>45); GLUCOSE, FASTING 87 MG/DL (74-106); POTASSIUM SERUM 4.1 MMOL/L (3.5-5.1); SODIUM LEVEL 128 MMOL/L (136-145); TOTAL PROTEIN 5.5 G/DL (5.7-8.2)
[2022-10-31 08:01] VITALS: BP 141/62
[2022-10-31] MEDS: NICOTINE 21MG/24HR 1 EA TRANSDERMAL TD SCH (08:31)
[2022-10-31] MEDS: NYSTATIN 500,000U/5ML SUSP UDC PO SCH (08:31)
[2022-10-31] MEDS: ASPIRIN 81MG ENTERIC TABLET PO SCH (08:31)
[2022-10-31] MEDS: MULTIVITAMINS/MINERALS THERAP 1 TAB PO SCH (08:32)
[2022-10-31] MEDS: ATORVASTATIN 20 MG TAB PO SCH (08:32)
[2022-10-31] MEDS: MYCOPHENOLATE MOFETIL 250 MG CAP (J7517) PO SCH (08:32)
[2022-10-31] MEDS: THIAMINE 100 MG TAB PO SCH (08:32)
[2022-10-31 08:34] VITALS: BP 136/63
[2022-10-31] MEDS: CARVedilol 6.25 MG TAB PO SCH (08:34)
[2022-10-31] MEDS: MAGNESIUM OXIDE 400MG TAB (MAG-OX) PO SCH (08:34)
[2022-10-31] MEDS: FOLIC ACID 1MG TAB PO SCH (08:35)
[2022-10-31] MEDS ORDERED: TOLVAPTAN 7.5 MG HALF-TAB PO ONE (11:00)
[2022-10-31] MEDS ORDERED: SODI1TAB6 PO (11:28)
[2022-10-31] MEDS ORDERED: FURO20TA2 PO (11:28)
[2022-10-31 11:31] VITALS: BP 107/55
[2022-11-01] MEDS ORDERED: SODIUM CHLORIDE 1 GM TAB PO SCH (09:00)
[2022-11-01] MEDS ORDERED: FUROSEMIDE 20 MG TAB PO SCH (09:00)
== END 2022-10-31 14:52 | disposition home or self-care (01) | DRG 644 ==
LOC: M PCU 11:05
PROVIDERS: ADMIT Student in an Organized Health Care Education/Training Program; ATTEND Internal Medicine
DX: E22.2 Syndrome of inappropriate secretion of antidiuretic hormone (principal); R64 Cachexia; E44.0 Moderate protein-calorie malnutrition; K12.2 Cellulitis and abscess of mouth; Z68.1 Body mass index [BMI] 19.9 or less, adult; E87.20 Acidosis, unspecified; I12.9 Hypertensive chronic kidney disease with stage 1 through stage 4 chronic kidney disease, or unspecified chronic kidney disease; N18.30 Chronic kidney disease, stage 3 unspecified; C06.2 Malignant neoplasm of retromolar area; D47.2 Monoclonal gammopathy; F32.A Depression, unspecified; E78.5 Hyperlipidemia, unspecified; Z96.641 Presence of right artificial hip joint; F17.210 Nicotine dependence, cigarettes, uncomplicated; Z95.828 Presence of other vascular implants and grafts; Z79.82 Long term (current) use of aspirin; Z79.899 Other long term (current) drug therapy; Z88.8 Allergy status to other drugs, medicaments and biological substances; E86.0 Dehydration; D63.0 Anemia in neoplastic disease; R22.1 Localized swelling, mass and lump, neck; K80.50 Calculus of bile duct without cholangitis or cholecystitis without obstruction

== ENCOUNTER → 2022-10-27 | Outpatient (CLI) | payer MEDICARE, MEDICAID ==
[~2022-10-27] MED LIST changes: -AMLO1TAB24; +AMLO1TAB24 PO; +FOLI0.4T5 PO; +FURO20TA2 PO; +LEXA1TAB PO; +LISI10TA22 PO; +MAGICMW SSP; -MYCO500T; +MYCO500T PO; +SODI1TAB6 PO
[2022-10-27 10:58] LABS: BASO % 0.2 % (0.0-1.0); EOS % 0.1 % (0.0-3.0); HEMATOCRIT 26.8 % (36.0-47.0); HEMOGLOBIN 9.2 g/dl (12.0-15.5); LYMPH # 0.6 10^3/uL (1.5-5.0); LYMPH % 6.6 % (24.0-44.0); MEAN CORPUSCULAR HEMOGLOBIN 32.7 pg (27.0-33.0); MEAN CORPUSCULAR HGB CONC 34.3 g/dl (32.0-36.5); MEAN CORPUSCULAR VOLUME 95.4 fl (80.0-96.0); MONO # 0.8 10^3/uL (0.0-0.8); NEUTROPHILS % 84.9 % (36.0-66.0); PLATELET COUNT, AUTOMATED 256 10^3/uL (150-450); RED BLOOD COUNT 2.81 10^6/uL (4.00-5.40); WHITE BLOOD COUNT 9.4 10^3/uL (4.0-10.0)
[2022-10-27 11:40] LABS: ALBUMIN 2.3 G/DL (3.2-5.2); ALKALINE PHOSPHATASE 116 U/L (46-116); ALT/SGPT 28 U/L (7.0-40); AST/SGOT 38 U/L (<34); BILIRUBIN,TOTAL < 0.2 MG/DL (0.3-1.2); BLOOD UREA NITROGEN 21 MG/DL (9-23); CALCIUM LEVEL 8.6 MG/DL (8.3-10.6); CARBON DIOXIDE LEVEL 29 MMOL/L (20-31); CHLORIDE LEVEL 82 MMOL/L (98-107); CREATININE FOR GFR 0.61 MG/DL (0.55-1.30); GLOMERULAR FILTRATION RATE > 60.0 (>45); GLUCOSE, FASTING 104 MG/DL (74-106); MAGNESIUM LEVEL 1.6 MG/DL (1.8-2.4); POTASSIUM SERUM 5.3 MMOL/L (3.5-5.1); SODIUM LEVEL 116 MMOL/L (136-145); TOTAL PROTEIN 5.9 G/DL (5.7-8.2)
== END ==
LOC: M ONCR 09:41
PROVIDERS: ATTEND General Practice
DX: C06.2 Malignant neoplasm of retromolar area (principal); Z92.21 Personal history of antineoplastic chemotherapy; Z92.3 Personal history of irradiation

== ENCOUNTER → 2022-11-03 | Outpatient (CLI) | payer MEDICARE, MEDICAID ==
[~2022-11-03] MED LIST changes: +FOLI0.4T5 PO; +FURO20TA2 PO; +LEXA1TAB PO; +LISI10TA22 PO; +OXYC5SOL11 PO; +SODI1TAB6 PO
== END ==
LOC: M ONCR 11:16
PROVIDERS: ATTEND General Practice
DX: C06.2 Malignant neoplasm of retromolar area (principal); Z92.3 Personal history of irradiation

== ENCOUNTER → 2022-11-13 | Outpatient (CLI) | payer MEDICARE, MEDICAID ==
[~2022-11-13] MED LIST changes: +POTA-298 PO; -POTA1TAB14 PO
== END ==
LOC: M PLARAD 08:45
PROVIDERS: ATTEND General Practice
DX: C06.2 Malignant neoplasm of retromolar area (principal)
CPT/HCPCS: 78815; A9552

== ENCOUNTER → 2022-11-14 | Outpatient (CLI) | payer MEDICARE, MEDICAID ==
[~2022-11-14] MED LIST changes: -POTA-298 PO; +POTA1TAB14 PO
== END ==
LOC: M ONCR 11:16
PROVIDERS: ATTEND General Practice
DX: C06.2 Malignant neoplasm of retromolar area (principal); F10.21 Alcohol dependence, in remission; F17.210 Nicotine dependence, cigarettes, uncomplicated; Z79.82 Long term (current) use of aspirin; Z79.899 Other long term (current) drug therapy; Z88.8 Allergy status to other drugs, medicaments and biological substances; Z92.21 Personal history of antineoplastic chemotherapy; Z92.3 Personal history of irradiation

== ENCOUNTER → 2022-11-28 | Outpatient (CLI) | payer MEDICARE, MEDICAID ==
[~2022-11-28] MED LIST changes: +POTA-298 PO; -POTA1TAB14 PO
== END ==
LOC: M ONCR 10:42
PROVIDERS: ATTEND General Practice
DX: C06.2 Malignant neoplasm of retromolar area (principal); Z79.891 Long term (current) use of opiate analgesic

== ENCOUNTER 2022-12-11 14:49 | Emergency (ER) | payer MEDICARE, MEDICAID ==
[~2022-12-11] VITALS: Ht 154.9 cm; Wt 40.9 kg
[2022-12-11 15:44] LABS: BASO % 0.4 % (0.0-1.0); EOS % 0.4 % (0.0-3.0); HEMATOCRIT 28.3 % (36.0-47.0); HEMOGLOBIN 9.5 g/dl (12.0-15.5); LYMPH # 1.9 10^3/uL (1.5-5.0); LYMPH % 16.9 % (24.0-44.0); MEAN CORPUSCULAR HEMOGLOBIN 31.5 pg (27.0-33.0); MEAN CORPUSCULAR HGB CONC 33.6 g/dl (32.0-36.5); MEAN CORPUSCULAR VOLUME 93.7 fl (80.0-96.0); MONO # 0.8 10^3/uL (0.0-0.8); NEUTROPHILS # 8.4 10^3/uL (1.5-8.5); NEUTROPHILS % 74.9 % (36.0-66.0); PLATELET COUNT, AUTOMATED 324 10^3/uL (150-450); RED BLOOD COUNT 3.02 10^6/uL (4.00-5.40); WHITE BLOOD COUNT 11.2 10^3/uL (4.0-10.0)
[2022-12-11 15:55] LABS: INR 0.92; PROTHROMBIN TIME 12.6 SECONDS (12.5-14.5)
[2022-12-11 15:56] LABS: PARTIAL THROMBOPLASTIN TIME 30.1 SECONDS (24.8-34.2)
[2022-12-11 16:04] LABS: BLOOD UREA NITROGEN 25 MG/DL (9-23); CALCIUM LEVEL 8.5 MG/DL (8.3-10.6); CARBON DIOXIDE LEVEL 27 MMOL/L (20-31); CHLORIDE LEVEL 94 MMOL/L (98-107); CREATININE FOR GFR 0.94 MG/DL (0.55-1.30); GLOMERULAR FILTRATION RATE > 60.0 (>45); GLUCOSE, FASTING 123 MG/DL (74-106); POTASSIUM SERUM 4.3 MMOL/L (3.5-5.1); SODIUM LEVEL 129 MMOL/L (136-145)
[2022-12-11] MEDS ORDERED: NS 1,000 ML IV SCH (17:35)
[2022-12-11 18:11] VITALS: BP 104/57
== END 2022-12-11 18:14 | disposition short-term general hospital (02) ==
LOC: EDBD 14:49 → M ED 14:49
DX: C08.9 Malignant neoplasm of major salivary gland, unspecified (principal); R04.9 Hemorrhage from respiratory passages, unspecified; I10 Essential (primary) hypertension; E78.5 Hyperlipidemia, unspecified; F17.200 Nicotine dependence, unspecified, uncomplicated; Z88.8 Allergy status to other drugs, medicaments and biological substances; Z79.899 Other long term (current) drug therapy; Z79.82 Long term (current) use of aspirin

== ENCOUNTER → 2022-12-19 | Outpatient (CLI) | payer MEDICARE, MEDICAID | LOC: M ONCR 10:37 | PROVIDERS: ATTEND General Practice | DX: C06.2 Malignant neoplasm of retromolar area (principal); Z92.21 Personal history of antineoplastic chemotherapy ==

== ENCOUNTER → 2023-01-12 | Outpatient (CLI) | payer MEDICARE, MEDICAID | LOC: M ONCR 11:04 | PROVIDERS: ATTEND General Practice | DX: C06.2 Malignant neoplasm of retromolar area (principal); F17.210 Nicotine dependence, cigarettes, uncomplicated; F10.11 Alcohol abuse, in remission; Z71.2 Person consulting for explanation of examination or test findings; Z88.8 Allergy status to other drugs, medicaments and biological substances; Z92.21 Personal history of antineoplastic chemotherapy; Z79.899 Other long term (current) drug therapy; Z79.891 Long term (current) use of opiate analgesic; Z92.3 Personal history of irradiation ==

== ENCOUNTER → 2023-01-18 | Outpatient (CLI) | payer MEDICARE, MEDICAID ==
[2023-01-19 07:18] LABS: BASO # 0.1 10^3/uL (0.0-0.2); BASO % 0.6 % (0.0-1.0); EOS # 0.1 10^3/uL (0.0-0.5); EOS % 0.9 % (0.0-3.0); HEMATOCRIT 38.7 % (36.0-47.0); MEAN CORPUSCULAR HEMOGLOBIN 30.1 pg (27.0-33.0); MONO # 0.6 10^3/uL (0.0-0.8); MONO % 7.3 % (2.0-8.0); NEUTROPHILS # 6.3 10^3/uL (1.5-8.5); NEUTROPHILS % 79.1 % (36.0-66.0); PLATELET COUNT, AUTOMATED 361 10^3/uL (150-450); RED BLOOD COUNT 3.99 10^6/uL (4.00-5.40); WHITE BLOOD COUNT 7.9 10^3/uL (4.0-10.0)
== END ==
LOC: M ONCR 10:58
PROVIDERS: ATTEND General Practice
DX: C06.2 Malignant neoplasm of retromolar area (principal)

== ENCOUNTER → 2023-02-13 | Outpatient (CLI) | payer MEDICARE, MEDICAID ==
[~2023-02-13] MED LIST changes: +BACT800T5 PO
== END ==
LOC: M ONCR 10:55
PROVIDERS: ATTEND General Practice
DX: C06.2 Malignant neoplasm of retromolar area (principal); F17.218 Nicotine dependence, cigarettes, with other nicotine-induced disorders; F10.21 Alcohol dependence, in remission; Z71.2 Person consulting for explanation of examination or test findings; Z79.82 Long term (current) use of aspirin; Z79.891 Long term (current) use of opiate analgesic; Z79.899 Other long term (current) drug therapy; Z88.8 Allergy status to other drugs, medicaments and biological substances; Z92.21 Personal history of antineoplastic chemotherapy; Z92.3 Personal history of irradiation

== ENCOUNTER → 2023-03-13 | Outpatient (CLI) | payer MEDICARE, MEDICAID | LOC: M ONCR 12:15 | PROVIDERS: ATTEND General Practice | DX: C06.2 Malignant neoplasm of retromolar area (principal); F17.210 Nicotine dependence, cigarettes, uncomplicated; F10.11 Alcohol abuse, in remission; Z71.2 Person consulting for explanation of examination or test findings; Z79.82 Long term (current) use of aspirin; Z79.899 Other long term (current) drug therapy; Z88.8 Allergy status to other drugs, medicaments and biological substances; Z92.21 Personal history of antineoplastic chemotherapy; Z92.3 Personal history of irradiation ==

== ENCOUNTER → 2023-06-06 | Outpatient (CLI) | payer MEDICARE, MEDICAID | LOC: M PLAIMG 11:27 | PROVIDERS: ATTEND General Practice | DX: C06.2 Malignant neoplasm of retromolar area (principal); M62.89 Other specified disorders of muscle; M27.8 Other specified diseases of jaws ==

== ENCOUNTER → 2023-07-13 | Outpatient (CLI) | payer MEDICARE, MEDICAID ==
[~2023-07-13] MED LIST changes: +MORP-69 PO; +OXYC20TA64 PO
== END ==
LOC: M ONCR 11:08
PROVIDERS: ATTEND General Practice
DX: C06.2 Malignant neoplasm of retromolar area (principal); S01.502A Unspecified open wound of oral cavity, initial encounter; F17.210 Nicotine dependence, cigarettes, uncomplicated; F10.21 Alcohol dependence, in remission; G89.29 Other chronic pain; Z71.2 Person consulting for explanation of examination or test findings; Z79.82 Long term (current) use of aspirin; Z79.891 Long term (current) use of opiate analgesic; Z79.899 Other long term (current) drug therapy; Z88.8 Allergy status to other drugs, medicaments and biological substances

== ENCOUNTER → 2023-08-22 | Outpatient (CLI) | payer MEDICARE, MEDICAID | LOC: M ONCR 11:14 | PROVIDERS: ATTEND General Practice | DX: C06.2 Malignant neoplasm of retromolar area (principal); F17.210 Nicotine dependence, cigarettes, uncomplicated; F10.21 Alcohol dependence, in remission; Z71.2 Person consulting for explanation of examination or test findings; Z92.21 Personal history of antineoplastic chemotherapy; Z92.3 Personal history of irradiation; Z79.82 Long term (current) use of aspirin; Z79.899 Other long term (current) drug therapy; Z88.8 Allergy status to other drugs, medicaments and biological substances ==

== ENCOUNTER → 2023-10-03 | Outpatient (CLI) | payer MEDICARE, MEDICAID ==
[~2023-10-03] MED LIST changes: +AMOX500C PO; +DEXA4TA PO; +IPRA0.00 INH
== END ==
LOC: M ONCR 10:21
PROVIDERS: ATTEND General Practice
DX: C06.2 Malignant neoplasm of retromolar area (principal); R53.83 Other fatigue

== ENCOUNTER → 2023-11-13 | Outpatient (CLI) | payer MEDICARE, MEDICAID ==
[~2023-11-13] MED LIST changes: +MSIR30TA PO; +NARC1SPR
== END ==
LOC: M ONCR 11:10
PROVIDERS: ATTEND General Practice
DX: C06.2 Malignant neoplasm of retromolar area (principal); F17.210 Nicotine dependence, cigarettes, uncomplicated; Z71.2 Person consulting for explanation of examination or test findings; Z79.82 Long term (current) use of aspirin; Z79.891 Long term (current) use of opiate analgesic; Z79.899 Other long term (current) drug therapy; Z88.8 Allergy status to other drugs, medicaments and biological substances; Z92.21 Personal history of antineoplastic chemotherapy; Z92.3 Personal history of irradiation

== ENCOUNTER 2023-12-12 05:08 | Inpatient (IN) | payer MEDICARE, MEDICAID ==
[~2023-12-12] VITALS: Ht 160 cm; Wt 35.4 kg
[2023-12-12 05:47] LABS: BASO % 0.2 % (0.0-1.0); EOS % 0.2 % (0.0-3.0); HEMATOCRIT 36.6 % (36.0-47.0); HEMOGLOBIN 12.6 g/dl (12.0-15.5); LYMPH % 9.9 % (24.0-44.0); MEAN CORPUSCULAR HEMOGLOBIN 31.3 pg (27.0-33.0); MEAN CORPUSCULAR HGB CONC 34.4 g/dl (32.0-36.5); MEAN CORPUSCULAR VOLUME 90.8 fl (80.0-96.0); MONO # 0.7 10^3/uL (0.0-0.8); MONO % 7.2 % (2.0-8.0); NEUTROPHILS # 8.3 10^3/uL (1.5-8.5); PLATELET COUNT, AUTOMATED 276 10^3/uL (150-450); RED BLOOD COUNT 4.03 10^6/uL (4.00-5.40); WHITE BLOOD COUNT 10.2 10^3/uL (4.0-10.0)
[2023-12-12 05:59] LABS: INR 0.95; PARTIAL THROMBOPLASTIN TIME 26.3 SECONDS (24.8-34.2); PROTHROMBIN TIME 12.5 SECONDS (12.5-14.5)
[2023-12-12 06:09] LABS: BLOOD UREA NITROGEN 21 MG/DL (9-23); CALCIUM LEVEL 9.1 MG/DL (8.3-10.6); CARBON DIOXIDE LEVEL 25 MMOL/L (20-31); CHLORIDE LEVEL 97 MMOL/L (98-107); CK-MB VALUE MASS 2.9 NG/ML (<3.6); GLOMERULAR FILTRATION RATE > 60.0 (>45); GLUCOSE, FASTING 115 MG/DL (74-106); POTASSIUM SERUM 4.4 MMOL/L (3.5-5.1); SODIUM LEVEL 130 MMOL/L (136-145)
[2023-12-12 06:14] LABS: CPK CREATINE PHOSPHOKINASE 48 U/L (34-145); MB/CK RELATIVE INDEX 6.04 (< OR =4)
[2023-12-12] MEDS ORDERED: MED REC IN PROGRESS XX SCH (10:05)
[2023-12-12] MEDS ORDERED: DEXA4TA PO (11:40)
[2023-12-12] MEDS ORDERED: THERTAB52 PO (11:40)
[2023-12-12] MEDS ORDERED: IPRA0.00 INH (11:40)
[2023-12-12] MEDS ORDERED: HYDR-3363 PO (11:40)
[2023-12-12] MEDS ORDERED: MAGICMW SSP (11:40)
[2023-12-12] MEDS ORDERED: OXYC1SOL3 PO (11:40)
[2023-12-12] MEDS ORDERED: MSIR30TA PO (11:40)
[2023-12-12] MEDS ORDERED: ONDA-83 PO (11:40)
[2023-12-12] MEDS ORDERED: EPIN0.3I11 IJ (11:40)
[2023-12-12] MEDS ORDERED: NARC1SPR (11:40)
[2023-12-12] MEDS ORDERED: BUPR-69 PO (11:45)
[2023-12-12] MEDS ORDERED: HOME MED LIST COMPLETE! XX SCH (11:50)
[2023-12-12] MEDS ORDERED: propofoL 200 MG/20 ML VIAL As Ordered ONE (11:51)
[2023-12-12] MEDS ORDERED: LIDOCAINE 2% 100MG/5ML SDV (FOR ANES.) As Ordered ONE (11:51)
[2023-12-12] MEDS ORDERED: MIDAZOLAM INJ 2MG/2ML VIAL As Ordered ONE (11:55)
[2023-12-12] MEDS ORDERED: fentaNYL 100 MCG/2 ML INJECTION As Ordered ONE (11:55)
[2023-12-12] MEDS ORDERED: KETAMINE HCL 200MG/20ML VIAL As Ordered ONE (12:08)
[2023-12-12] MEDS ORDERED: fentaNYL 100 MCG/2 ML INJECTION IV PRN (12:35)
[2023-12-12] MEDS ORDERED: MORPHINE 2 MG/ML 1ML VIAL IV PRN (12:35)
[2023-12-12] MEDS: LR 1,000 ML IV SCH (12:35)
[2023-12-12] MEDS ORDERED: ONDANSETRON 4MG 2ML VIAL IV PRN ×2 (12:35)
[2023-12-12] MEDS ORDERED: oxyCODONE 5MG TAB PO PRN (12:35)
[2023-12-12] MEDS ORDERED: HYDROmorphone 2 MG TAB PO PRN (12:35)
[2023-12-12] MEDS ORDERED: SENNA 8.6 MG TAB (SENOKOT) PO PRN (12:35)
[2023-12-12 15:00] VITALS: BP 134/77; TEMP 97; O2SAT 93
[2023-12-12] MEDS: oxyCODONE 5MG TAB PO PRN (16:56)
[2023-12-12 18:00] VITALS: BP 147/80; TEMP 97.3; O2SAT 95
[2023-12-12] MEDS ORDERED: IPRATROPIUM 0.5MG/ALBUTEROL 2.5MG INH SOL UD 3ML (DUONEB) INH PRN (18:10)
[2023-12-12] MEDS ORDERED: ONDANSETRON 4MG TAB PO PRN (18:10)
[2023-12-12] MEDS: NS 1,000 ML IV SCH (19:12)
[2023-12-12] MEDS: CARVedilol 6.25 MG TAB PO SCH (20:13)
[2023-12-12] MEDS: HEPARIN SOD (PORCINE) 5000UNITS/ML 1ML VIAL/SYRINGE SQ SCH (20:13)
[2023-12-12] MEDS: MYCOPHENOLATE MOFETIL 250 MG CAP (J7517) PO SCH (20:13)
[2023-12-12] MEDS: traZODone 100 MG TAB PO SCH (20:13)
[2023-12-12] MEDS: DOCUSATE SODIUM 100MG CAPSULE PO SCH (20:13)
[2023-12-12] MEDS: MAG SULF 1GM/100ML (MAG RUN) 1 GM in IV 1 EA IV ONE (20:14)
[2023-12-12] MEDS: ACETAMINOPHEN TAB 650MG DOSE (2X325MG) PO PRN (20:19)
[2023-12-12 21:04] VITALS: BP 156/71; TEMP 97.3; O2SAT 91
[2023-12-13 05:39] VITALS: BP 123/59; TEMP 97.3; O2SAT 90
[2023-12-13] MEDS ORDERED: OXYC1SOL3 PO (08:19)
[2023-12-13 09:00] VITALS: BP 136/64
[2023-12-13] MEDS: dexAMETHasone 4 MG TAB PO SCH (09:00)
[2023-12-13] MEDS: amLODIPine 5 MG TAB PO SCH (09:01)
[2023-12-13] MEDS: buPROPion 100 MG TAB PO SCH (09:39)
[2023-12-13 10:35] LABS: HEMATOCRIT 32.8 % (36.0-47.0); MEAN CORPUSCULAR HEMOGLOBIN 30.7 pg (27.0-33.0); MEAN CORPUSCULAR HGB CONC 33.5 g/dl (32.0-36.5); MEAN CORPUSCULAR VOLUME 91.6 fl (80.0-96.0); PLATELET COUNT, AUTOMATED 256 10^3/uL (150-450); RED BLOOD COUNT 3.58 10^6/uL (4.00-5.40); WHITE BLOOD COUNT 6.6 10^3/uL (4.0-10.0)
[2023-12-13 10:52] LABS: BLOOD UREA NITROGEN 17 MG/DL (9-23); CARBON DIOXIDE LEVEL 27 MMOL/L (20-31); CHLORIDE LEVEL 105 MMOL/L (98-107); CREATININE FOR GFR 0.62 MG/DL (0.55-1.30); GLOMERULAR FILTRATION RATE > 60.0 (>45); GLUCOSE, FASTING 143 MG/DL (74-106); POTASSIUM SERUM 3.5 MMOL/L (3.5-5.1); SODIUM LEVEL 135 MMOL/L (136-145)
[2023-12-13] MEDS: MORPHINE 4 MG/ML 1ML VIAL IV PRN (14:57)
[2023-12-13] MEDS ORDERED: PERC5TAB12 PO (16:33)
[2023-12-17] MEDS ORDERED: ONDA-83 PO (16:16)
== END 2023-12-13 16:45 | disposition home or self-care (01) | DRG 561 ==
LOC: M ED 05:08 → M ED INP 11:31 → M MS5PR 15:00
PROVIDERS: ADMIT Preventive Medicine Undersea and Hyperbaric Medicine; ATTEND Preventive Medicine Undersea and Hyperbaric Medicine
PROC: 0SS9XZZ Reposition Right Hip Joint, External Approach (ICD-10-PCS; principal; 2023-12-12 13:45)
DX: T84.020A Dislocation of internal right hip prosthesis, initial encounter (principal); W01.0XXA Fall on same level from slipping, tripping and stumbling without subsequent striking against object, initial encounter; Y92.009 Unspecified place in unspecified non-institutional (private) residence as the place of occurrence of the external cause; Y93.9 Activity, unspecified; C08.9 Malignant neoplasm of major salivary gland, unspecified; F17.210 Nicotine dependence, cigarettes, uncomplicated; N18.30 Chronic kidney disease, stage 3 unspecified; D47.2 Monoclonal gammopathy; I12.9 Hypertensive chronic kidney disease with stage 1 through stage 4 chronic kidney disease, or unspecified chronic kidney disease; R62.7 Adult failure to thrive; F32.A Depression, unspecified; E78.5 Hyperlipidemia, unspecified; J44.9 Chronic obstructive pulmonary disease, unspecified; Z96.641 Presence of right artificial hip joint; Z79.82 Long term (current) use of aspirin; Z79.899 Other long term (current) drug therapy; Z79.2 Long term (current) use of antibiotics; Z88.8 Allergy status to other drugs, medicaments and biological substances; Z66 Do not resuscitate

== ENCOUNTER → 2023-12-21 | Outpatient (CLI) | payer MEDICARE, MEDICAID ==
[~2023-12-21] MED LIST changes: +BUPR-69 PO; +EPIN0.3I11 IJ; +PERC5TAB12 PO; +THERTAB52 PO
== END ==
LOC: M SOG 08:09
PROVIDERS: ATTEND Physician Assistant
DX: Z47.89 Encounter for other orthopedic aftercare (principal); M25.551 Pain in right hip; Z53.8 Procedure and treatment not carried out for other reasons

== ENCOUNTER → 2024-04-14 | Outpatient (CLI) | payer MEDICARE, MEDICAID | LOC: M ONCR 08:47 | PROVIDERS: ATTEND General Practice | DX: C06.2 Malignant neoplasm of retromolar area (principal); F17.210 Nicotine dependence, cigarettes, uncomplicated; Z92.21 Personal history of antineoplastic chemotherapy; Z92.3 Personal history of irradiation; Z88.8 Allergy status to other drugs, medicaments and biological substances; Z79.899 Other long term (current) drug therapy; Z79.891 Long term (current) use of opiate analgesic; Z66 Do not resuscitate ==